=== PATIENT | male | born 1965 | race African-American/Black ===

== ENCOUNTER 2016-06-23 10:26 | Inpatient (IN) | payer OTHER ==
[2016-06-23 10:40] VITALS: BMI 19.1
--- NOTE | 2016-06-23 13:30 | HP ---
CIWA Score - CIWA Score Nausea/Vomitin-Int. Nausea w/Dry Heave Muscle Tremors: 4-Moderate,w/Arms Extend Anxiety: 4-Mod. Anxious/Guarded Agitation: 3 Paroxysmal Sweats: 1-Minimal Palms Moist Orientation: 0-Oriented Tacttile Disturbances: 3-Moderate Itch/Numb/Burn Auditory Disturbances: 0-None Visual Disturbances: 0-None Headache: 0-None Present CIWA-Ar Total Score: 19 Admission ROS BHS - HPI Chief Complaint: DETOX TX FOR ALCOHOL DEPENDENCE Allergies/Adverse Reactions: Allergies Allergy/AdvReac Type Severity Reaction Status Date / Time No Known Allergies Allergy Verified 06/23/16 11:44 History of Present Illness: 50 Y/O AA/MALE WITH A HX OF ALCOHOL AND COCAINE DEPENDENCE SEEKING DETOX TX Exam Limitations: No Limitations - Ebola screening Have you traveled outside of the country in the last 21 days: No Have you had contact with anyone from an Ebola affected area: No Have you been sick,other than usual withdrawal symptoms: No Do you have a fever: No - Review of Systems Constitutional: Chills, Loss of Appetite, Night Sweats, Changes in sleep, Unintentional Wgt. Loss EENT: reports: Blurred Vision (WEARS GLASSES), Nose Congestion Respiratory: reports: Shortness of Breath (HX ASTHMA), Wheezing Cardiac: reports: Lightheadedness GI: reports: Diarrhea, Nausea, Poor Appetite : reports: No Symptoms Reported Musculoskeletal: reports: Back Pain, Muscle Pain, Other (PERIPHERAL NEUROPATHY) Integumentary: reports: Rash (OUTBREAK OR HERPES ON UPPER LOWER BACK--ON VALTREX 500 MG BID), Other Neuro: reports: Headache, Tremors, Unsteady Gait, Dizziness Endocrine: reports: No Symptoms Reported Hematology: reports: Anemia (NO CURRENT MED) Psychiatric: reports: Orientated x3, Anxious, Depressed Other Systems: Reviewed and Negative Patient History - Patient Medical History Hx Anemia: Yes (NO MEDS) Hx Asthma: Yes (Pt is on MDI.) Hx Chronic Obstructive Pulmonary Disease (COPD): No Hx Cancer: No Hx Cardiac Disorders: No Hx Congestive Heart Failure: No Hx Hypertension: No Hx Hypercholesterolemia: No Hx Pacemaker: No HX Cerebrovascular Accident: No Hx Seizures: No Hx Dementia: No Hx Diabetes: No Hx Gastrointestinal Disorders: No Hx Liver Disease: No Hx Genitourinary Disorders: No Hx Sexually Transmitted Disorders: Yes (Pt has a hx of genital herpes) Hx Renal Disease (ESRD): No Hx Thyroid Disease: No Hx Human Immunodeficiency Virus (HIV): Yes (POSITIVE SINCE 1994-CHANGE TO GENVOYA(PT DID NOT BRING MED)) Hx Hepatitis C: No Hx Depression: Yes (ON MED) Hx Suicide Attempt: No (DENIES) Hx Bipolar Disorder: No Hx Schizophrenia: No - Patient Surgical History Past Surgical History: No Hx Neurologic Surgery: No Hx Cataract Extraction: No Hx Cardiac Surgery: No Hx Lung Surgery: No Hx Breast Surgery: No Hx Breast Biopsy: No Hx Abdominal Surgery: No Hx Appendectomy: No Hx Cholecystectomy: No Hx Genitourinary Surgery: No Hx Section: No Hx Orthopedic Surgery: No Anesthesia Reaction: No - PPD History Previous Implant?: Yes Documented Results: Negative w/proof Implanted On Prior [facility] Admission?: Yes Date: 05/27/15 Results: 0 MM - Reproductive History Patient : No - Smoking Cessation Smoking history: Current every day smoker Have you smoked in the past 12 months: Yes Aproximately how many cigarettes per day: 5 Cigars Per Day: 0 Hx Chewing Tobacco Use: No Initiated information on smoking cessation: Yes 'Breaking Loose' booklet given: 06/23/16 - Substance & Tx. History Hx Alcohol Use: Yes (CLINTON/VODKA) Hx Substance Use: Yes (CRACK) Substance Use Type: Alcohol, Cocaine, Marijuana Hx Substance Use Treatment: Yes ([facility]) - Substances Abused Alcohol Route: Oral Frequency: Daily Amount used: FIFTH OF CLINTON Age of first use: 20 Date of Last Use: 06/23/16 Crack Route: Smoking Frequency: Daily Amount used: $50 Age of first use: 37 Date of Last Use: 06/22/16 Marijuana/Hashish Route: Smoking Frequency: 1-3 times last 30 days Amount used: $10 Age of first use: 17 Date of Last Use: 06/22/16 Family Disease History - Family Disease History Family Disease History: Other: Father (cardiac ), Mother (TB ), Brother (alcohol,) Admission Physical Exam BHS - Vital Signs Vital Signs: Vital Signs - 24 hr 06/23/16 10:37 Temperature 97.7 F Pulse Rate 89 Respiratory 19 Rate Blood Pressure 130/67 - Physical General Appearance: Yes: Moderate Distress, Thin, Irritable, Anxious HEENTM: Yes: EOMI, Normocephalic, WALLY, Pharynx Normal Respiratory: Yes: Chest Non-Tender, Lungs Clear, Normal Breath Sounds Neck: Yes: Supple, Trachea in good position Breast: Yes: Breast Exam Deferred Cardiology: Yes: Regular Rhythm, Regular Rate, S1, S2 Abdominal: Yes: Normal Bowel Sounds, Non Tender, Flat, Soft Genitourinary: Yes: Other (N/C) Back: Yes: Within Normal Limits Musculoskeletal: Yes: full range of Motion, Gait Steady Extremities: Yes: Normal Range of Motion, Non-Tender, Other (SMALL BRUISE ON LEFT DAMON--NO SWELLING) Neurological: Yes: metal plater II-XII NML intact, Fully Oriented, Alert Integumentary: Yes: Dry, Warm Lymphatic: Yes: Within Normal Limits - Diagnostic (1) Alcohol dependence with uncomplicated withdrawal Current Visit: Yes Status: Acute (2) Cocaine dependence, uncomplicated Current Visit: Yes Status: Acute (3) Nicotine dependence Current Visit: Yes Status: Acute Qualifiers: Nicotine product type: cigarettes Substance use status: in withdrawal Qualified Code(s): F17.213 - Nicotine dependence, cigarettes, with withdrawal (4) Asthma Current Visit: Yes Status: Chronic Qualifiers: Asthma severity: mild intermittent Asthma complication type: uncomplicated Qualified Code(s): J45.20 - Mild intermittent asthma, uncomplicated (5) Human immunodeficiency virus infection Current Visit: Yes Status: Chronic (6) Weight decreased Current Visit: Yes Status: Chronic (7) Peripheral neuropathic pain Current Visit: Yes Status: Chronic (8) Cannabis dependence Current Visit: No Status: Chronic Comment: NEGATIVE TOXICOLOGY TODAY Cleared for Admission [facility] - Detox or Rehab [facility] Level of Care: Medically Managed Detox Regimen/Protocol: Librium [facility] Breath Alcohol Content Breath Alcohol Content: 0 Urine Drug Screen - Results Drug Screen Negative: No Urine Drug Screen Results: NUBIA-Cocaine
[2016-06-23] MEDS ORDERED: chlordiazePOXIDE HCL 25 MG CAPSULE PO PRN (13:42)
[2016-06-23] MEDS ORDERED: P-EPHED 60MG/TRIPROLIDI 2.5MG TABLET PO PRN (13:42)
[2016-06-23] MEDS ORDERED: MENTHOL/PHENOL 1 EACH UD MM PRN (13:42)
[2016-06-23] MEDS ORDERED: MAGNESIUM HYDROX 2400MG/30ML ORAL SUSPENSION 30 ML CUP PO PRN (13:42)
[2016-06-23] MEDS ORDERED: MAGNESIUM CITRATE 300 ML BOTTLE PO PRN (13:42)
[2016-06-23] MEDS ORDERED: guaiFENesin/D-METHORPHAN HB 10 ML UNIT-DOSE CUPS PO PRN (13:42)
[2016-06-23] MEDS ORDERED: hydrOXYzine PAMOATE 25 MG CAPSULE (FP) PO PRN (13:42)
[2016-06-23] MEDS ORDERED: ACETAMINOPHEN 325 MG TABLET (FP) PO PRN (13:42)
[2016-06-23] MEDS ORDERED: MAG HYDROX/AL HYDROX/SIMETH 30 ML UNIT-DOSE CUP PO PRN (13:42)
[2016-06-23] MEDS ORDERED: IBUPROFEN 400 MG TABLET (FP) PO PRN (13:42)
[2016-06-23] MEDS ORDERED: LOPERAMIDE HCL 2 MG CAPSULE PO PRN (13:42)
[2016-06-23] MEDS ORDERED: ALBUTEROL SO4 18 GM HFA INHALER IH PRN (13:45)
[2016-06-23] MEDS ORDERED: chlordiazePOXIDE HCL 25 MG CAPSULE PO ONE (13:50)
[2016-06-23] MEDS: NICOTINE 14 MG/24 HOURS TOPICAL PATCH TD SCH (15:01)
[2016-06-23] MEDS: NICOTINE POLACRILEX 2 MG GUM BUC PRN (15:02)
[2016-06-23] MEDS: chlordiazePOXIDE HCL 25 MG CAPSULE PO SCH ×2 (17:55→22:46)
[2016-06-23 21:11] LABS: URINE APPEARANCE CLEAR; URINE BILIRUBIN NEGATIVE (NEGATIVE); URINE BLOOD NEGATIVE (NEGATIVE); URINE COLOR YELLOW; URINE GLUCOSE (UA) NEGATIVE (NEGATIVE); URINE KETONE 1+ (NEGATIVE); URINE LEUK ESTERASE NEGATIVE (NEGATIVE); URINE NITRITE NEGATIVE (NEGATIVE); URINE PROTEIN NEGATIVE (NEGATIVE); URINE UROBILINOGEN NEGATIVE E.U./dl (0.2-1.0)
[2016-06-23] MEDS: valACYclovir HCL 500 MG TABLET (FP) PO SCH (22:46)
[2016-06-23] MEDS: THIAMINE HCL 100 MG TABLET (FP) PO SCH (22:46)
[2016-06-24] MEDS: chlordiazePOXIDE HCL 25 MG CAPSULE PO SCH ×4 (05:52→22:43)
--- NOTE | 2016-06-24 09:48 | PN ---
BHS CIWA - CIWA Score Nausea/Vomitin Muscle Tremors: 3 Anxiety: 3 Agitation: 3 Paroxysmal Sweats: 1-Minimal Palms Moist Orientation: 0-Oriented Tacttile Disturbances: 1-Very Mild Itch/Numbness Auditory Disturbances: 1-Very Mild Visual Disturbances: 1-Very Mild Sensitivity Headache: 2-Mild CIWA-Ar Total Score: 18 BHS Progress Note (SOAP) Subjective: ALERT,IRRITABLE,ANXIOUS,INTERRUPTED SLEEP,TREMOR Objective: 06/24/16 09:47 Vital Signs Temperature 97.7 F 06/24/16 06:30 Pulse Rate 75 06/24/16 06:30 Respiratory Rate 16 06/24/16 06:30 Blood Pressure 102/56 06/24/16 06:30 O2 Sat by Pulse Oximetry (%) EKG NSR Laboratory Last Values Urine Color Yellow 06/23/16 15:00 Urine Appearance Clear 06/23/16 15:00 Urine pH 5.0 (5.0-8.0) D 06/23/16 15:00 Urine Protein Negative (NEGATIVE) 06/23/16 15:00 Urine Glucose (UA) Negative (NEGATIVE) 06/23/16 15:00 Urine Ketones 1+ (NEGATIVE) H 06/23/16 15:00 Urine Blood Negative (NEGATIVE) 06/23/16 15:00 Urine Nitrite Negative (NEGATIVE) 06/23/16 15:00 Urine Bilirubin Negative (NEGATIVE) 06/23/16 15:00 Urine Urobilinogen Negative E.U./dl (0.2-1.0) 06/23/16 15:00 Ur Leukocyte Esterase Negative (NEGATIVE) 06/23/16 15:00 LABS PENDING Assessment: 06/24/16 09:48 WITHDRAWAL SYMPTOM Plan: CONTINUE DETOX
[2016-06-24 09:56] LABS: MCH 28.8 pg (25.7-33.7); MCHC 33.3 g/dl (32.0-35.9); MEAN CELL VOLUME 86.5 fl (80-96); MEAN PLT VOLUME 10.5 fl (7.5-11.1); PLATELET COUNT 114 K/MM3 (134-434); RDW 15.7 % (11.9-15.9); WHITE BLOOD COUNT 2.6 K/mm3 (4.0-10.0)
[2016-06-24] MEDS: PRENATAL VITAMINS W/ FOLIC ACID TABLET (FP) PO SCH (10:49)
[2016-06-24] MEDS: valACYclovir HCL 500 MG TABLET (FP) PO SCH ×2 (10:49→22:43)
[2016-06-24] MEDS: NICOTINE 14 MG/24 HOURS TOPICAL PATCH TD SCH (10:50)
[2016-06-24] MEDS: NICOTINE POLACRILEX 2 MG GUM BUC PRN ×3 (10:57→22:46)
--- NOTE | 2016-06-24 11:46 | EKG ---
Test Reason : Blood Pressure : / mmHG Vent. Rate : 073 BPM Atrial Rate : 073 BPM P-R Int : 206 ms QRS Dur : 086 ms QT Int : 406 ms P-R-T Axes : 074 081 072 degrees QTc Int : 447 ms NORMAL SINUS RHYTHM ST ELEVATION, CONSIDER EARLY REPOLARIZATION NO PREVIOUS ECGS AVAILABLE Confirmed by DALI DAMON MD ([id number]) on 06/24/2016 11:45:50 AM Referred By: Confirmed By:DALI DAMON MD
--- NOTE | 2016-06-24 12:35 | CONSULT ---
[facility] Psychiatric Consult - Data Date of interview: 06/24/16 Admission source: [facility] Identifying data: Another admission to [facility] for this 50 y/o AA male seeking detox trewatment on for alcohol,cannabis and cocaine dependence.Patient is single without children,domiciled (O setting), unemployed and supported on SSD benefits. Substance Abuse History: - Smoking Cessation. Smoking history: Current every day smoker. Have you smoked in the past 12 months: Yes. Aproximately how many cigarettes per day: 5. Cigars Per Day: 0. Hx Chewing Tobacco Use: No. Initiated information on smoking cessation: Yes. 'Breaking Loose' booklet given : 06/23/16. - Substance & Tx. History. Hx Alcohol Use: Yes (CLINTON/VODKA). Hx Substance Use: Yes (CRACK). Substance Use Type: Alcohol, Cocaine, Marijuana. Hx Substance Use Treatment: Yes ([facility]). - Substances Abused. Alcohol. Route: Oral. Frequency: Daily. Amount used: FIFTH OF CLINTON. Age of first use: 20. Date of Last Use: 06/23/16. Crack. Route: Smoking. Frequency: Daily. Amount used: $50. Age of first use: 37. Date of Last Use: 06/22/16. Marijuana/Hashish. Route: Smoking. Frequency: 1-3 times last 30 days. Amount used: $10. Age of first use: 17. Date of Last Use : 06/22/16. Confirmed by patient. Medical History: HIV infection since 1994 (on ART medications),anemia,bronchial asthma and a history of herpes genitalis. Psychiatric History: History of one psychiatric hospitalization at [facility] (2016).Diagnosed with MDD/Anxiety Disorder.Mr Deras [facility] in the [place].Patient is managed by Dr Chery under a regimen of remeron 45 mg/hs + effexor 37.5 mg/day.States that he last took his medications two days ago.Patient denies history of suicide attempts. Physical/Sexual Abuse/Trauma History: Patient denies. Additional Comment: Urine Drug Screen Results: NUBIA-Cocaine.Noted. Mental Status Exam - Mental Status Exam Alert and Oriented to: Time, Place, Person Cognitive Function: Good Patient Appearance: Well Groomed (wearing rings in all fingers) Mood: Hopeful, Euthymic Affect: Appropriate, Normal Range Patient Behavior: Fatigued, Appropriate, Cooperative (friendly) Speech Pattern: Clear Voice Loudness: Normal Thought Process: Goal Oriented Thought Disorder: Not Present Hallucinations: Denies Suicidal Ideation: Denies Homicidal Ideation: Denies Insight/Judgement: Poor Sleep: Poorly, Difficulty falling asleep Appetite: Good Muscle strength/Tone: Normal Gait/Station: Normal Psychiatric Findings - Problem List ([place] 1, 2,3) (1) Alcohol dependence with uncomplicated withdrawal Current Visit: Yes Status: Acute (2) Cocaine dependence, uncomplicated Current Visit: Yes Status: Acute (3) Nicotine dependence Current Visit: Yes Status: Acute Qualifiers: Nicotine product type: cigarettes Substance use status: in withdrawal Qualified Code(s): F17.213 - Nicotine dependence, cigarettes, with withdrawal (4) Substance induced mood disorder Current Visit: Yes Status: Acute (5) MDD (major depressive disorder) Current Visit: Yes Status: Acute Comment: By history. (6) Asthma Current Visit: Yes Status: Chronic Qualifiers: Asthma severity: mild intermittent Asthma complication type: uncomplicated Qualified Code(s): J45.20 - Mild intermittent asthma, uncomplicated (7) Human immunodeficiency virus infection Current Visit: Yes Status: Chronic (8) Peripheral neuropathic pain Current Visit: Yes Status: Chronic (9) Weight decreased Current Visit: Yes Status: Chronic (10) Insomnia Current Visit: Yes Status: Acute - Initial Treatment Plan Initial Treatment Plan: Psychoeducation.Detoxification in progress.Medications : effexor 37.5 mg po daily + remeron 30 mg po hs (reduced).Side effects/ benefits discussed with the patient.He is eager to resume his medications.Agrees with careplan.Observation.
[2016-06-24 13:48] LABS: ALBUMIN 4.1 g/dl (3.4-5.0); ALK PHOS 84 U/L (45-117); ANION GAP 8 (8-16); BILIRUBIN,TOTAL 0.4 mg/dL (0.2-1.0); CALCIUM 8.9 mg/dL (8.5-10.1); CO2 28 mmol/L (21-32); GLUCOSE,RANDOM 72 mg/dL (74-106); SGOT/AST 65 U/L (15-37); SGPT/ALT 52 U/L (12-78); TOT PROT 7.8 g/dl (6.4-8.2)
[2016-06-24] MEDS: VENLAFAXINE HCL 37.5 MG TABLET PO SCH (17:26)
[2016-06-24] MEDS: THIAMINE HCL 100 MG TABLET (FP) PO SCH (22:43)
[2016-06-24] MEDS: MIRTAZAPINE 30 MG TABLET (FP) PO SCH (22:43)
[2016-06-25] MEDS: chlordiazePOXIDE HCL 25 MG CAPSULE PO SCH ×2 (05:29→10:29)
[2016-06-25] MEDS: valACYclovir HCL 500 MG TABLET (FP) PO SCH ×2 (10:27→22:16)
[2016-06-25] MEDS: PRENATAL VITAMINS W/ FOLIC ACID TABLET (FP) PO SCH (10:27)
[2016-06-25] MEDS: NICOTINE 14 MG/24 HOURS TOPICAL PATCH TD SCH (10:28)
[2016-06-25] MEDS: VENLAFAXINE HCL 37.5 MG TABLET PO SCH (10:29)
[2016-06-25] MEDS: NICOTINE POLACRILEX 2 MG GUM BUC PRN (10:30)
--- NOTE | 2016-06-25 12:21 | PN ---
[facility] CIWA - CIWA Score Nausea/Vomitin Muscle Tremors: 2 Anxiety: 2 Agitation: 2 Paroxysmal Sweats: 2 Orientation: 0-Oriented Tacttile Disturbances: 2-Mild Itch/Numbness/Burn Auditory Disturbances: 1-Very Mild Visual Disturbances: 1-Very Mild Sensitivity Headache: 1-Very Mild CIWA-Ar Total Score: 15 S Progress Note (SOAP) Subjective: Interrupted sleep,anxiety, joint pain Objective: 06/25/16 12:19 Vital Signs - 8 hr 06/25/16 06/25/16 06:00 10:35 Temperature 97.3 F L 97.3 F L Pulse Rate 69 86 Respiratory 16 16 Rate Blood Pressure 95/64 100/68 Laboratory Last Values WBC 2.6 K/mm3 (4.0-10.0) L 06/24/16 06:00 RBC 4.27 M/mm3 (4.00-5.60) 06/24/16 06:00 Hgb 12.3 GM/dL (11.7-16.9) 06/24/16 06:00 Hct 37.0 % (35.4-49) 06/24/16 06:00 MCV 86.5 fl (80-96) 06/24/16 06:00 MCHC 33.3 g/dl (32.0-35.9) 06/24/16 06:00 RDW 15.7 % (11.9-15.9) 06/24/16 06:00 Plt Count 114 K/MM3 (134-434) L D 06/24/16 06:00 MPV 10.5 fl (7.5-11.1) D 06/24/16 06:00 Sodium 137 mmol/L (136-145) 06/24/16 06:00 Potassium 4.7 mmol/L (3.5-5.1) D 06/24/16 06:00 Chloride 101 mmol/L (98-107) 06/24/16 06:00 Carbon Dioxide 28 mmol/L (21-32) 06/24/16 06:00 Anion Gap 8 (8-16) 06/24/16 06:00 BUN 14 mg/dL (7-18) D 06/24/16 06:00 Creatinine 1.0 mg/dL (0.7-1.3) 06/24/16 06:00 Creat Clearance w eGFR > 60 (>60) 06/24/16 06:00 Random Glucose 72 mg/dL (74-106) L D 06/24/16 06:00 Calcium 8.9 mg/dL (8.5-10.1) 06/24/16 06:00 Total Bilirubin 0.4 mg/dL (0.2-1.0) D 06/24/16 06:00 AST 65 U/L (15-37) H D 06/24/16 06:00 ALT 52 U/L (12-78) D 06/24/16 06:00 Alkaline Phosphatase 84 U/L (45-117) 06/24/16 06:00 Total Protein 7.8 g/dl (6.4-8.2) 06/24/16 06:00 Albumin 4.1 g/dl (3.4-5.0) 06/24/16 06:00 Urine Color Yellow 06/23/16 15:00 Urine Appearance Clear 06/23/16 15:00 Urine pH 5.0 (5.0-8.0) D 06/23/16 15:00 Ur Specific [place] 1.015 (1.005-1.025) 06/23/16 15:00 Urine Protein Negative (NEGATIVE) 06/23/16 15:00 Urine Glucose (UA) Negative (NEGATIVE) 06/23/16 15:00 Urine Ketones 1+ (NEGATIVE) H 06/23/16 15:00 Urine Blood Negative (NEGATIVE) 06/23/16 15:00 Urine Nitrite Negative (NEGATIVE) 06/23/16 15:00 Urine Bilirubin Negative (NEGATIVE) 06/23/16 15:00 Urine Urobilinogen Negative E.U./dl (0.2-1.0) 06/23/16 15:00 Ur Leukocyte Esterase Negative (NEGATIVE) 06/23/16 15:00 RPR Titer Nonreactive (NONREACTIVE) 06/24/16 06:00 labs noted Assessment: 06/25/16 12:20 withdrawal sx Plan: continue sx
[2016-06-25] MEDS: chlordiazePOXIDE 5 MG CAPSULE PO SCH ×2 (17:28→22:16)
[2016-06-25] MEDS: MIRTAZAPINE 30 MG TABLET (FP) PO SCH (22:16)
[2016-06-25] MEDS: diphenhydrAMINE HCL 50 MG CAPSULE PO PRN (22:17)
[2016-06-25] MEDS: THIAMINE HCL 100 MG TABLET (FP) PO SCH (22:17)
[2016-06-26] MEDS: chlordiazePOXIDE 5 MG CAPSULE PO SCH ×2 (05:58→10:22)
[2016-06-26] MEDS: valACYclovir HCL 500 MG TABLET (FP) PO SCH ×2 (10:21→22:17)
[2016-06-26] MEDS: PRENATAL VITAMINS W/ FOLIC ACID TABLET (FP) PO SCH (10:21)
[2016-06-26] MEDS: VENLAFAXINE HCL 37.5 MG TABLET PO SCH (10:22)
[2016-06-26] MEDS: NICOTINE 14 MG/24 HOURS TOPICAL PATCH TD SCH (10:22)
--- NOTE | 2016-06-26 11:21 | PN ---
BHS Progress Note (SOAP) Subjective: Sweating,interrupted sleep,restless Objective: 06/26/16 11:19 Vital Signs - 8 hr 06/26/16 06/26/16 06/26/16 03:30 06:00 09:36 Temperature 97.9 F 97.7 F Pulse Rate 66 85 Respiratory 18 18 18 Rate Blood Pressure 108/67 112/69 Laboratory Tests 06/23/16 06/24/16 06/24/16 15:00 06:00 06:00 WBC 2.6 L RBC 4.27 Hgb 12.3 Hct 37.0 MCV 86.5 MCHC 33.3 RDW 15.7 Plt Count 114 L D MPV 10.5 D Sodium 137 Potassium 4.7 D Chloride 101 Carbon Dioxide 28 Anion Gap 8 BUN 14 D Creatinine 1.0 Creat Clearance w eGFR > 60 Random Glucose 72 L D Calcium 8.9 Total Bilirubin 0.4 D AST 65 H D ALT 52 D Alkaline Phosphatase 84 Total Protein 7.8 Albumin 4.1 Urine Color Yellow Urine Appearance Clear Urine pH 5.0 D Ur Specific [place] 1.015 Urine Protein Negative Urine Glucose (UA) Negative Urine Ketones 1+ H Urine Blood Negative Urine Nitrite Negative Urine Bilirubin Negative Urine Urobilinogen Negative Ur Leukocyte Esterase Negative RPR Titer 06/24/16 06:00 WBC RBC Hgb Hct MCV MCHC RDW Plt Count MPV Sodium Potassium Chloride Carbon Dioxide Anion Gap BUN Creatinine Creat Clearance w eGFR Random Glucose Calcium Total Bilirubin AST ALT Alkaline Phosphatase Total Protein Albumin Urine Color Urine Appearance Urine pH Ur Specific [place] Urine Protein Urine Glucose (UA) Urine Ketones Urine Blood Urine Nitrite Urine Bilirubin Urine Urobilinogen Ur Leukocyte Esterase RPR Titer Nonreactive labs noted Assessment: 06/26/16 11:20 withdrawal sx. Plan: Continue detox
[2016-06-26] MEDS: chlordiazePOXIDE HCL 10 MG CAPSULE PO SCH ×2 (17:30→22:17)
[2016-06-26] MEDS: diphenhydrAMINE HCL 50 MG CAPSULE PO PRN (22:17)
[2016-06-26] MEDS: MIRTAZAPINE 30 MG TABLET (FP) PO SCH (22:17)
[2016-06-26] MEDS: THIAMINE HCL 100 MG TABLET (FP) PO SCH (22:17)
[2016-06-27] MEDS: chlordiazePOXIDE HCL 10 MG CAPSULE PO SCH (05:03)
--- NOTE | 2016-06-27 09:08 | DS ---
[facility] Detox Discharge Summary Admission Date: 06/23/16 Discharge Date: 06/27/16 - History Present History: Alcohol Dependence, Cannabis Dependence, Cocaine Dependence - Physical Exam Results Vital Signs: Vital Signs Temperature 98.1 F 06/27/16 06:22 Pulse Rate 72 06/27/16 06:22 Respiratory Rate 16 06/27/16 06:22 Blood Pressure 94/56 06/27/16 06:22 O2 Sat by Pulse Oximetry (%) - Treatment Hospital Course: Detox Protocol Followed, Detoxed Safely, Responded well, Discharged Condition Good - Medication Discharge Medications: Ambulatory Orders Valacyclovir HCl [Valtrex -] 500 mg PO BID #30 tablet 05/29/15 Albuterol Sulfate Inhaler - [Ventolin HFA Inhaler -] 2 inh PO Q4H PRN #1 inhaler 02/23/16 Mirtazapine [Remeron -] 45 mg PO HS #90 tablet 02/23/16 Venlafaxine HCl ER [Effexor Xr -] 37.5 mg PO DAILY #30 cap.er.24h 02/23/16 Elviteg/Catarina/Emtric/Tenofo Ala [Genvoya Tablet] 1 each PO DAILY 06/23/16 Mirtazapine [Remeron [DO NOT STOCK]] 45 mg PO DAILY #30 tab 06/24/16 - Diagnosis (1) Alcohol dependence with uncomplicated withdrawal Current Visit: No Status: Chronic (2) Cannabis dependence Current Visit: Yes Status: Chronic (3) Cocaine dependence, uncomplicated Current Visit: Yes Status: Acute (4) Nicotine dependence Current Visit: Yes Status: Chronic Qualifiers: Nicotine product type: cigarettes Substance use status: in withdrawal Qualified Code(s): F17.213 - Nicotine dependence, cigarettes, with withdrawal (5) Asthma Current Visit: Yes Status: Chronic Qualifiers: Asthma severity: mild intermittent Asthma complication type: uncomplicated Qualified Code(s): J45.20 - Mild intermittent asthma, uncomplicated (6) Human immunodeficiency virus infection Current Visit: Yes Status: Chronic (7) Peripheral neuropathic pain Current Visit: Yes Status: Chronic (8) Thrush, oral Current Visit: Yes Status: Chronic - AMA Did Patient Leave Against Medical Advice: No
[2016-06-27] MEDS: PRENATAL VITAMINS W/ FOLIC ACID TABLET (FP) PO SCH (09:36)
[2016-06-27] MEDS: VENLAFAXINE HCL 37.5 MG TABLET PO SCH (09:37)
[2016-06-27] MEDS: valACYclovir HCL 500 MG TABLET (FP) PO SCH (09:37)
[2016-06-27] MEDS: NICOTINE 14 MG/24 HOURS TOPICAL PATCH TD SCH (09:37)
[2016-06-27 13:55] VITALS: BP 116/74; PULSE 92; TEMP 99
[2016-06-27] MEDS: NICOTINE POLACRILEX 2 MG GUM BUC PRN (14:49)
== END 2016-06-27 15:05 | disposition other institution (70) | DRG 897 ==
LOC: YASAS 10:26 → Y6N 13:25
PROVIDERS: ADMIT Internal Medicine Addiction Medicine; ATTEND Internal Medicine Addiction Medicine
PROC: HZ2ZZZZ Detoxification Services for Substance Abuse Treatment (ICD-10-PCS; principal; 2016-06-27)
DX: F10.230 Alcohol dependence with withdrawal, uncomplicated (principal); F14.20 Cocaine dependence, uncomplicated; Z68.1 Body mass index [BMI] 19.9 or less, adult; B37.0 Candidal stomatitis; F12.20 Cannabis dependence, uncomplicated; F17.213 Nicotine dependence, cigarettes, with withdrawal; J45.20 Mild intermittent asthma, uncomplicated; F32.9 Major depressive disorder, single episode, unspecified; G47.00 Insomnia, unspecified; R63.4 Abnormal weight loss; Z21 Asymptomatic human immunodeficiency virus [HIV] infection status
CPT/HCPCS: 36415; 80053; 81003; 85027; 86593; 93005; 93010

== ENCOUNTER 2016-06-27 15:21 | Inpatient (IN) | payer OTHER ==
[2016-06-27 15:52] VITALS: BMI 18.9
[2016-06-27] MEDS ORDERED: diphenhydrAMINE HCL 50 MG CAPSULE PO PRN (16:11)
[2016-06-27] MEDS ORDERED: guaiFENesin/D-METHORPHAN HB 10 ML UNIT-DOSE CUPS PO PRN (16:11)
[2016-06-27] MEDS ORDERED: MAGNESIUM CITRATE 300 ML BOTTLE PO PRN (16:11)
[2016-06-27] MEDS ORDERED: ACETAMINOPHEN 325 MG TABLET (FP) PO PRN (16:11)
[2016-06-27] MEDS ORDERED: LOPERAMIDE HCL 2 MG CAPSULE PO PRN (16:11)
[2016-06-27] MEDS ORDERED: IBUPROFEN 400 MG TABLET (FP) PO PRN (16:11)
[2016-06-27] MEDS ORDERED: MENTHOL/PHENOL 1 EACH UD MM PRN (16:11)
[2016-06-27] MEDS ORDERED: P-EPHED 60MG/TRIPROLIDI 2.5MG TABLET PO PRN (16:11)
[2016-06-27] MEDS ORDERED: ALBUTEROL SO4 6.7 GM HFA INHALER IH PRN (16:11)
[2016-06-27] MEDS ORDERED: MAG HYDROX/AL HYDROX/SIMETH 30 ML UNIT-DOSE CUP PO PRN (16:11)
[2016-06-27] MEDS ORDERED: MAGNESIUM HYDROX 2400MG/30ML ORAL SUSPENSION 30 ML CUP PO PRN (16:11)
--- NOTE | 2016-06-27 16:16 | HP ---
[facility] Rehab Assess/Revision - Admission History Admitted to Rehab from: [facility] Date of Admission to Rehab: 06/27/16 - Vital signs Vital Signs: Vital Signs Period Temp Pulse Resp BP Sys/Mclaughlin Pulse Ox Last 24 Hr 97 F 94 19 105/71 - Findings Detox History & Physical reviewed: Yes Concur with findings: Yes Comments/Additional Findings: transferred from detox to rehab admission as per protocol
[2016-06-27] MEDS: valACYclovir HCL 500 MG TABLET (FP) PO SCH (22:02)
[2016-06-27] MEDS: THIAMINE HCL 100 MG TABLET (FP) PO SCH (22:02)
[2016-06-27] MEDS: MIRTAZAPINE 15 MG TABLET (FP) PO SCH (22:03)
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
[2016-06-28] MEDS ORDERED: PT OWN MED DRAWER 7, Y5N ONE (08:31)
[2016-06-28] MEDS ORDERED: PNEUMOC 13-VAL CONJ-DIP CRM/PF 0.5 ML DISP.SYRIN IM ONE (10:00)
[2016-06-28] MEDS: valACYclovir HCL 500 MG TABLET (FP) PO SCH ×2 (10:21→21:24)
[2016-06-28] MEDS: VENLAFAXINE HCL 37.5 MG E.R. CAPSULE (FP) PO SCH (10:21)
[2016-06-28] MEDS: NICOTINE 14 MG/24 HOURS TOPICAL PATCH TD SCH (10:21)
[2016-06-28] MEDS: PRENATAL VITAMINS W/ FOLIC ACID TABLET (FP) PO SCH (10:21)
[2016-06-28] MEDS: NICOTINE POLACRILEX 2 MG GUM BUC PRN (10:23)
[2016-06-28] MEDS: THIAMINE HCL 100 MG TABLET (FP) PO SCH (21:23)
[2016-06-28] MEDS: MIRTAZAPINE 15 MG TABLET (FP) PO SCH (21:23)
[2016-06-29] MEDS: NICOTINE POLACRILEX 2 MG GUM BUC PRN ×4 (06:09→22:06)
[2016-06-29] MEDS ORDERED: PT OWN MED DRAWER 7, Y5N ONE ×2 (08:43→15:29)
[2016-06-29] MEDS: NICOTINE 14 MG/24 HOURS TOPICAL PATCH TD SCH (09:35)
[2016-06-29] MEDS: valACYclovir HCL 500 MG TABLET (FP) PO SCH ×2 (09:35→22:04)
[2016-06-29] MEDS: PRENATAL VITAMINS W/ FOLIC ACID TABLET (FP) PO SCH (09:35)
[2016-06-29] MEDS: VENLAFAXINE HCL 37.5 MG E.R. CAPSULE (FP) PO SCH (09:35)
[2016-06-29] MEDS: MIRTAZAPINE 15 MG TABLET (FP) PO SCH (22:04)
[2016-06-29] MEDS: THIAMINE HCL 100 MG TABLET (FP) PO SCH (22:05)
[2016-06-30] MEDS ORDERED: PT OWN MED DRAWER 7, Y5N ONE (08:45)
[2016-06-30] MEDS: PRENATAL VITAMINS W/ FOLIC ACID TABLET (FP) PO SCH (09:39)
[2016-06-30] MEDS: NICOTINE 14 MG/24 HOURS TOPICAL PATCH TD SCH (09:39)
[2016-06-30] MEDS: valACYclovir HCL 500 MG TABLET (FP) PO SCH ×2 (09:40→21:27)
[2016-06-30] MEDS: VENLAFAXINE HCL 37.5 MG E.R. CAPSULE (FP) PO SCH (09:40)
[2016-06-30] MEDS: NICOTINE POLACRILEX 2 MG GUM BUC PRN ×3 (09:41→21:28)
[2016-06-30] MEDS: THIAMINE HCL 100 MG TABLET (FP) PO SCH (21:27)
[2016-06-30] MEDS: MIRTAZAPINE 15 MG TABLET (FP) PO SCH (21:27)
[2016-07-01] MEDS ORDERED: PT OWN MED DRAWER 7, Y5N ONE (08:48)
[2016-07-01] MEDS: PRENATAL VITAMINS W/ FOLIC ACID TABLET (FP) PO SCH (10:08)
[2016-07-01] MEDS: valACYclovir HCL 500 MG TABLET (FP) PO SCH ×2 (10:08→21:37)
[2016-07-01] MEDS: VENLAFAXINE HCL 37.5 MG E.R. CAPSULE (FP) PO SCH (10:08)
[2016-07-01] MEDS: NICOTINE 14 MG/24 HOURS TOPICAL PATCH TD SCH (10:09)
[2016-07-01] MEDS: THIAMINE HCL 100 MG TABLET (FP) PO SCH (21:36)
[2016-07-01] MEDS: MIRTAZAPINE 15 MG TABLET (FP) PO SCH (21:36)
[2016-07-02] MEDS ORDERED: PT OWN MED DRAWER 7, Y5N ONE (08:38)
[2016-07-02] MEDS: NICOTINE 14 MG/24 HOURS TOPICAL PATCH TD SCH (09:44)
[2016-07-02] MEDS: VENLAFAXINE HCL 37.5 MG E.R. CAPSULE (FP) PO SCH (09:44)
[2016-07-02] MEDS: valACYclovir HCL 500 MG TABLET (FP) PO SCH ×2 (09:44→21:42)
[2016-07-02] MEDS: PRENATAL VITAMINS W/ FOLIC ACID TABLET (FP) PO SCH (09:44)
[2016-07-02] MEDS: NICOTINE POLACRILEX 2 MG GUM BUC PRN ×2 (09:46→21:43)
[2016-07-02] MEDS: THIAMINE HCL 100 MG TABLET (FP) PO SCH (21:41)
[2016-07-02] MEDS: MIRTAZAPINE 15 MG TABLET (FP) PO SCH (21:41)
[2016-07-03] MEDS: NICOTINE POLACRILEX 2 MG GUM BUC PRN ×3 (07:25→21:47)
[2016-07-03] MEDS ORDERED: PT OWN MED DRAWER 7, Y5N ONE (08:55)
[2016-07-03] MEDS: valACYclovir HCL 500 MG TABLET (FP) PO SCH ×2 (09:45→21:46)
[2016-07-03] MEDS: PRENATAL VITAMINS W/ FOLIC ACID TABLET (FP) PO SCH (09:45)
[2016-07-03] MEDS: NICOTINE 14 MG/24 HOURS TOPICAL PATCH TD SCH (09:46)
[2016-07-03] MEDS: VENLAFAXINE HCL 37.5 MG E.R. CAPSULE (FP) PO SCH (09:46)
[2016-07-03] MEDS: THIAMINE HCL 100 MG TABLET (FP) PO SCH (21:46)
[2016-07-03] MEDS: MIRTAZAPINE 15 MG TABLET (FP) PO SCH (21:46)
[2016-07-04] MEDS ORDERED: PT OWN MED DRAWER 7, Y5N ONE (08:59)
[2016-07-04] MEDS: PRENATAL VITAMINS W/ FOLIC ACID TABLET (FP) PO SCH (09:44)
[2016-07-04] MEDS: valACYclovir HCL 500 MG TABLET (FP) PO SCH ×2 (09:44→21:44)
[2016-07-04] MEDS: NICOTINE 14 MG/24 HOURS TOPICAL PATCH TD SCH (09:44)
[2016-07-04] MEDS: VENLAFAXINE HCL 37.5 MG E.R. CAPSULE (FP) PO SCH (09:45)
[2016-07-04] MEDS: NICOTINE POLACRILEX 2 MG GUM BUC PRN ×3 (09:45→21:45)
[2016-07-04] MEDS: THIAMINE HCL 100 MG TABLET (FP) PO SCH (21:44)
[2016-07-04] MEDS: MIRTAZAPINE 15 MG TABLET (FP) PO SCH (21:44)
[2016-07-05] MEDS ORDERED: PT OWN MED DRAWER 7, Y5N ONE (08:50)
[2016-07-05] MEDS: NICOTINE 14 MG/24 HOURS TOPICAL PATCH TD SCH (09:51)
[2016-07-05] MEDS: PRENATAL VITAMINS W/ FOLIC ACID TABLET (FP) PO SCH (09:51)
[2016-07-05] MEDS: VENLAFAXINE HCL 37.5 MG E.R. CAPSULE (FP) PO SCH (09:51)
[2016-07-05] MEDS: NICOTINE POLACRILEX 2 MG GUM BUC PRN ×3 (09:52→21:48)
[2016-07-05] MEDS: valACYclovir HCL 500 MG TABLET (FP) PO SCH ×2 (14:51→21:48)
[2016-07-05] MEDS: THIAMINE HCL 100 MG TABLET (FP) PO SCH (21:47)
[2016-07-05] MEDS: MIRTAZAPINE 15 MG TABLET (FP) PO SCH (21:48)
[2016-07-06] MEDS: NICOTINE POLACRILEX 2 MG GUM BUC PRN ×4 (08:00→21:47)
[2016-07-06] MEDS ORDERED: PT OWN MED DRAWER 7, Y5N ONE (08:50)
[2016-07-06] MEDS: NICOTINE 14 MG/24 HOURS TOPICAL PATCH TD SCH (10:00)
[2016-07-06] MEDS: PRENATAL VITAMINS W/ FOLIC ACID TABLET (FP) PO SCH (10:00)
[2016-07-06] MEDS: VENLAFAXINE HCL 37.5 MG E.R. CAPSULE (FP) PO SCH (10:00)
[2016-07-06] MEDS: valACYclovir HCL 500 MG TABLET (FP) PO SCH ×2 (10:00→21:46)
[2016-07-06] MEDS: THIAMINE HCL 100 MG TABLET (FP) PO SCH (21:46)
[2016-07-06] MEDS: MIRTAZAPINE 15 MG TABLET (FP) PO SCH (21:46)
[2016-07-07] MEDS ORDERED: PT OWN MED DRAWER 7, Y5N ONE (08:34)
[2016-07-07] MEDS: VENLAFAXINE HCL 37.5 MG E.R. CAPSULE (FP) PO SCH (09:48)
[2016-07-07] MEDS: valACYclovir HCL 500 MG TABLET (FP) PO SCH ×2 (09:48→21:17)
[2016-07-07] MEDS: NICOTINE 14 MG/24 HOURS TOPICAL PATCH TD SCH (09:48)
[2016-07-07] MEDS: PRENATAL VITAMINS W/ FOLIC ACID TABLET (FP) PO SCH (09:48)
[2016-07-07] MEDS: NICOTINE POLACRILEX 2 MG GUM BUC PRN ×3 (09:49→20:14)
[2016-07-07] MEDS: MIRTAZAPINE 15 MG TABLET (FP) PO SCH (21:16)
[2016-07-07] MEDS: THIAMINE HCL 100 MG TABLET (FP) PO SCH (21:16)
[2016-07-08] MEDS: NICOTINE POLACRILEX 2 MG GUM BUC PRN ×4 (07:27→21:35)
[2016-07-08] MEDS ORDERED: PT OWN MED DRAWER 7, Y5N ONE (08:48)
[2016-07-08] MEDS: NICOTINE 14 MG/24 HOURS TOPICAL PATCH TD SCH (09:59)
[2016-07-08] MEDS: valACYclovir HCL 500 MG TABLET (FP) PO SCH ×2 (09:59→21:34)
[2016-07-08] MEDS: PRENATAL VITAMINS W/ FOLIC ACID TABLET (FP) PO SCH (09:59)
[2016-07-08] MEDS: VENLAFAXINE HCL 37.5 MG E.R. CAPSULE (FP) PO SCH (09:59)
[2016-07-08] MEDS: MIRTAZAPINE 15 MG TABLET (FP) PO SCH (21:34)
[2016-07-08] MEDS: THIAMINE HCL 100 MG TABLET (FP) PO SCH (21:34)
[2016-07-09] MEDS ORDERED: PT OWN MED DRAWER 7, Y5N ONE (08:43)
[2016-07-09] MEDS: VENLAFAXINE HCL 37.5 MG E.R. CAPSULE (FP) PO SCH (09:34)
[2016-07-09] MEDS: valACYclovir HCL 500 MG TABLET (FP) PO SCH ×2 (09:34→21:27)
[2016-07-09] MEDS: PRENATAL VITAMINS W/ FOLIC ACID TABLET (FP) PO SCH (09:34)
[2016-07-09] MEDS: NICOTINE 14 MG/24 HOURS TOPICAL PATCH TD SCH (09:35)
[2016-07-09] MEDS: NICOTINE POLACRILEX 2 MG GUM BUC PRN ×3 (09:35→21:27)
[2016-07-09] MEDS: MIRTAZAPINE 15 MG TABLET (FP) PO SCH (21:26)
[2016-07-09] MEDS: THIAMINE HCL 100 MG TABLET (FP) PO SCH (21:26)
[2016-07-10] MEDS: NICOTINE POLACRILEX 2 MG GUM BUC PRN ×3 (06:53→21:53)
[2016-07-10] MEDS ORDERED: PT OWN MED DRAWER 7, Y5N ONE (08:34)
[2016-07-10] MEDS: PRENATAL VITAMINS W/ FOLIC ACID TABLET (FP) PO SCH (09:40)
[2016-07-10] MEDS: VENLAFAXINE HCL 37.5 MG E.R. CAPSULE (FP) PO SCH (09:40)
[2016-07-10] MEDS: valACYclovir HCL 500 MG TABLET (FP) PO SCH ×2 (09:40→21:52)
[2016-07-10] MEDS: NICOTINE 14 MG/24 HOURS TOPICAL PATCH TD SCH (09:40)
[2016-07-10] MEDS: MIRTAZAPINE 15 MG TABLET (FP) PO SCH (21:52)
[2016-07-10] MEDS: THIAMINE HCL 100 MG TABLET (FP) PO SCH (21:52)
[2016-07-11 06:48] VITALS: BP 111/65; PULSE 77; TEMP 98.5
--- NOTE | 2016-07-11 07:28 | PN ---
Psychiatric Progress Note Vital Signs: Vital Signs Period Temp Pulse Resp BP Sys/Mclaughlin Pulse Ox Last 24 Hr 98.5 F 77 18-18 111/65 Date of Session: 07/11/16 Chief Complaint:: Discharge Note HPI: Patient addressing Alcohol, Cocaine and Cannabis Dependence comorbid with Nicotine Dependence And Major Depressive Disorder ROS: Asthma, HIV, peripheral neuropathy were medically managed Current Medications: Active Medications Generic Name Dose Route Start Last Admin Trade Name Freq PRN Reason Stop Dose Admin Acetaminophen 650 mg 06/27/16 16:11 Tylenol - PO Q4H PRN FEVER OR PAIN Al Hydroxide/Mg Hydroxide 30 ml 06/27/16 16:11 Mylanta Oral Suspension - PO Q6H PRN DYSPEPSIA Albuterol Sulfate 2 puff 06/27/16 16:11 Ventolin Hfa Inhaler - IH Q4H PRN ASTHMA Diphenhydramine HCl 50 mg 06/27/16 16:11 Benadryl - PO HSMR1 PRN FOR ITCHING Eucalyptus/Menthol/Phenol/Sorbitol 1 each 06/27/16 16:11 Cepastat Lozenge - MM Q4H PRN SORE THROAT Guaifenesin 10 ml 06/27/16 16:11 Robitussin Dm - PO Q6H PRN COUGH Ibuprofen 400 mg 06/27/16 16:11 Motrin - PO Q6H PRN PAIN Loperamide HCl 4 mg 06/27/16 16:11 Imodium - PO Q6H PRN DIARRHEA Magnesium Hydroxide 30 ml 06/27/16 16:11 Milk Of Magnesia - PO DAILY PRN CONSTIPATION Mirtazapine 45 mg 06/27/16 22:00 07/10/16 21:52 Remeron - PO 45 mg HS ESTEBAN Administration Nicotine 14 mg 06/28/16 10:00 07/10/16 09:40 Nicoderm Patch - TD 14 mg DAILY ESTEBAN Administration Nicotine Polacrilex 2 mg 06/27/16 16:11 07/10/16 21:53 Nicorette Gum - BUC 2 mg Q2H PRN Administration NICOTINE REPLACEMENT RX Multivit/Folic Acid/Iron 1 tab 06/28/16 10:00 07/10/16 09:40 Vitamins (Sjr) - PO 1 tab DAILY ESTEBAN Administration Pseudoephedrine/Triprolidine 1 combo 06/27/16 16:11 Actifed - PO TID PRN NASAL CONGESTION Thiamine HCl 100 mg 06/27/16 22:00 07/10/16 21:52 Vitamin B1 - PO 100 mg HS ESTEBAN Administration Valacyclovir HCl 500 mg 07/05/16 14:20 07/10/16 21:52 Valtrex - PO 500 mg BID ESTEBAN Administration Venlafaxine HCl 37.5 mg 06/28/16 10:00 07/10/16 09:40 Effexor Xr - PO 37.5 mg DAILY ESTEBAN Administration Current Side Effect: No Lab tests ordered: Yes Lab tests reviewed: Yes Provider note:: Patient has completed this program today. He has met his treatment goals and will continue to address his issues in outpatient treatment at [facility] at [address] [place] [address]. Told underwriter solicitation director that from his participation in this program, he has learned the importance of establishing a sober support network in order to maintain sobriety. He responded well to Effexor Xr 37,5 mg po daily and Remeron 45 mg po Hs. Scripts for 30 days supply of these medications are electronically transmitted to [facility] at [address] [place] [address]. He is stable for discharge today Total face to face time:: 35 Psychiatric Treatment Plan - Problem List (1) Alcohol dependence with uncomplicated withdrawal Current Visit: No (2) Cocaine dependence, uncomplicated Current Visit: No (3) Cannabis dependence Current Visit: No Comment: NEGATIVE TOXICOLOGY TODAY (4) Nicotine dependence Current Visit: No Qualifiers: Nicotine product type: cigarettes Substance use status: in withdrawal Qualified Code(s): F17.213 - Nicotine dependence, cigarettes, with withdrawal (5) MDD (major depressive disorder) Current Visit: No Comment: By history. (6) Asthma Current Visit: No Qualifiers: Asthma severity: mild intermittent Asthma complication type: uncomplicated Qualified Code(s): J45.20 - Mild intermittent asthma, uncomplicated (7) Human immunodeficiency virus infection Current Visit: No (8) Peripheral neuropathic pain Current Visit: No Initial treatment plan: Patient is discharged today and referred to
[2016-07-11] MEDS ORDERED: PT OWN MED DRAWER 7, Y5N ONE (08:40)
[2016-07-11] MEDS: VENLAFAXINE HCL 37.5 MG E.R. CAPSULE (FP) PO SCH (09:37)
[2016-07-11] MEDS: valACYclovir HCL 500 MG TABLET (FP) PO SCH (09:37)
[2016-07-11] MEDS: NICOTINE 14 MG/24 HOURS TOPICAL PATCH TD SCH (09:37)
[2016-07-11] MEDS: PRENATAL VITAMINS W/ FOLIC ACID TABLET (FP) PO SCH (09:37)
[2016-07-11] MEDS: NICOTINE POLACRILEX 2 MG GUM BUC PRN (09:38)
== END 2016-07-11 09:50 | disposition home or self-care (01) | DRG 895 ==
LOC: YASAS 15:21 → Y3W 15:23
PROVIDERS: ADMIT Psychiatry & Neurology Psychiatry; ATTEND Psychiatry & Neurology Psychiatry
PROC: HZ42ZZZ Group Counseling for Substance Abuse Treatment, Cognitive-Behavioral (ICD-10-PCS; principal; 2016-06-27)
DX: F10.20 Alcohol dependence, uncomplicated (principal); F14.20 Cocaine dependence, uncomplicated; F33.9 Major depressive disorder, recurrent, unspecified; F12.20 Cannabis dependence, uncomplicated; F17.213 Nicotine dependence, cigarettes, with withdrawal; J45.20 Mild intermittent asthma, uncomplicated; Z21 Asymptomatic human immunodeficiency virus [HIV] infection status; G62.9 Polyneuropathy, unspecified

== ENCOUNTER 2017-02-03 10:13 | Inpatient (IN) | payer OTHER ==
[2017-02-03 11:13] VITALS: BMI 19.5
--- NOTE | 2017-02-03 13:32 | HP ---
CIWA Score - CIWA Score Nausea/Vomitin Muscle Tremors: 4-Moderate,w/Arms Extend Anxiety: 4-Mod. Anxious/Guarded Agitation: 2 Paroxysmal Sweats: 2 Orientation: 0-Oriented Tacttile Disturbances: 2-Mild Itch/Numbness/Burn Auditory Disturbances: 0-None Visual Disturbances: 2-Mild Sensitivity Headache: 0-None Present CIWA-Ar Total Score: 19 Admission ROS BHS - HPI Chief Complaint: "I need to get clean." Patient is here to Detox from Alcohol. Allergies/Adverse Reactions: Allergies Allergy/AdvReac Type Severity Reaction Status Date / Time No Known Allergies Allergy Verified 02/03/17 11:19 History of Present Illness: Patient is a 51 YO male here to Detox from Alcohol. Patient has had several previous Detox and Rehab admissions at [facility] in the past (Last:Detox / Rehab: 2016). Exam Limitations: No Limitations - Ebola screening Have you traveled outside of the country in the last 21 days: No (N) Have you had contact with anyone from an Ebola affected area: No Have you been sick,other than usual withdrawal symptoms: No Do you have a fever: No - Review of Systems Constitutional: Diaphoresis, Loss of Appetite, Malaise, Night Sweats, Changes in sleep, Unintentional Wgt. Loss EENT: reports: No Symptoms Reported Respiratory: reports: SOB with Exertion, Productive cough Cardiac: reports: No Symptoms Reported GI: reports: Nausea : reports: No Symptoms Reported Musculoskeletal: reports: No Symptoms Reported Integumentary: reports: No Symptoms Reported Neuro: reports: Numbness (In Bilateral Feet.), Tingling (In Bilateral Feet.), Tremors Endocrine: reports: No Symptoms Reported Hematology: reports: No Symptoms Reported Psychiatric: reports: Judgement Intact, Mood/Affect Appropiate, Orientated x3, Anxious, Depressed (On meds.) Other Systems: Reviewed and Negative Patient History - Patient Medical History Hx Anemia: No Hx Asthma: Yes (Uses Albuterol Inhaler.) Hx Chronic Obstructive Pulmonary Disease (COPD): No Hx Cancer: No Hx Cardiac Disorders: No Hx Congestive Heart Failure: No Hx Hypertension: No Hx Hypercholesterolemia: No Hx Pacemaker: No HX Cerebrovascular Accident: No Hx Seizures: No Hx Dementia: No Hx Diabetes: No Hx Gastrointestinal Disorders: No Hx Liver Disease: No Hx Genitourinary Disorders: No Hx Sexually Transmitted Disorders: Yes (HIV) Hx Renal Disease (ESRD): No Hx Thyroid Disease: No Hx Human Immunodeficiency Virus (HIV): Yes (POSITIVE SINCE 1997-CHANGE TO GENVOYA(PT DID NOT BRING MED)) Hx Hepatitis C: No (Last Tested: 01/2017: NEGATIVE.) Hx Depression: Yes (On meds.) Hx Suicide Attempt: No (PATIENT DENIES CURRENT SI /HI.) Hx Bipolar Disorder: No Hx Schizophrenia: No Other Medical History: DENIES. - Patient Surgical History Past Surgical History: No Hx Neurologic Surgery: No Hx Cataract Extraction: No Hx Cardiac Surgery: No Hx Lung Surgery: No Hx Breast Surgery: No Hx Breast Biopsy: No Hx Abdominal Surgery: No Hx Appendectomy: No Hx Cholecystectomy: No Hx Genitourinary Surgery: No Hx Section: No Hx Orthopedic Surgery: No Anesthesia Reaction: No - PPD History Previous Implant?: Yes Documented Results: Positive w/proof Date: 06/23/16 Results: 0 mm PPD to be Administered?: No - Reproductive History Patient is a Female of Child Bearing Age (11 -55 yrs old): No (PATIENT IS MALE.) - Smoking Cessation Smoking history: Current every day smoker Have you smoked in the past 12 months: Yes Aproximately how many cigarettes per day: 5 Cigars Per Day: 0 Hx Chewing Tobacco Use: No Initiated information on smoking cessation: Yes 'Breaking Loose' booklet given: 02/03/17 (GIVEN ON UNIT.) - Substance & Tx. History Hx Alcohol Use: Yes Hx Substance Use: Yes Substance Use Type: Alcohol, Cocaine Hx Substance Use Treatment: Yes (Several previous Detox/Rehab admissions at [facility] ;Last: 06/2016 (Detox/Rehab)) - Substances Abused Cocaine Route: Smoking Frequency: Daily Amount used: 50 dollars Age of first use: 39 Date of Last Use: 02/03/17 Alcohol- Jossy/Beer/ Vodka/ Route: Oral Frequency: Daily Amount used: 1 Fifth Jossy, 2 40 oz. Beers. Age of first use: 17 Date of Last Use: 02/03/17 Marijuana Route: Smoking Frequency: Daily Amount used: 10 dollars Age of first use: 17 Date of Last Use: 02/03/17 Family Disease History - Family Disease History Family Disease History: CA: Sister (Ovarian, Ca; AIDS, ), Other: Father (CVA, ; Used Alcohol.), Mother (TB, ; Used Alcohol.), Brother ( Cirrhosis of Liver, Decxeased; OD, .) Admission Physical Exam [facility] - Vital Signs Vital Signs: Vital Signs - 24 hr 02/03/17 11:09 Temperature 96.0 F L Pulse Rate 80 Respiratory 18 Rate Blood Pressure 124/93 - Physical General Appearance: Yes: No Apparent Distress, Nourished, Appropriately Dressed , Tremorous HEENTM: Yes: Hearing grossly Normal, Normocephalic, Normal Voice, WALLY, Pharynx Normal Respiratory: Yes: Chest Non-Tender, Lungs Clear, No Respiratory Distress, No Accessory Muscle Use Neck: Yes: No masses,lesions,Nodules, Supple, Trachea in good position Breast: Yes: Breast Exam Deferred Cardiology: Yes: Regular Rhythm, Regular Rate, S1, S2 Abdominal: Yes: Normal Bowel Sounds, Non Tender, Flat, Soft Genitourinary: Yes: Within Normal Limits Back: Yes: Normal Inspection Musculoskeletal: Yes: full range of Motion, Gait Steady Extremities: Yes: Normal Range of Motion, Non-Tender, Tremors Neurological: Yes: Fully Oriented, Alert, Normal Mood/Affect, Normal Response, Other (Numbness, Tinglin in Bilateral Feet; History of Neuropathy in bilateral feet.) Integumentary: Yes: Normal Color, Dry, Warm Lymphatic: Yes: Within Normal Limits - Diagnostic (1) Cannabis dependence, uncomplicated Current Visit: Yes Status: Acute (2) Cocaine dependence, uncomplicated Current Visit: Yes Status: Acute (3) Alcohol dependence with uncomplicated withdrawal Current Visit: Yes Status: Acute (4) Asthma Current Visit: Yes Status: Chronic Qualifiers: Asthma severity: mild Asthma persistence: intermittent Asthma complication type: uncomplicated Qualified Code(s): J45.20 - Mild intermittent asthma, uncomplicated (5) Human immunodeficiency virus infection Current Visit: Yes Status: Chronic (6) Nicotine dependence Current Visit: Yes Status: Chronic Qualifiers: Nicotine product type: cigarettes Substance use status: uncomplicated Qualified Code(s): F17.210 - Nicotine dependence, cigarettes, uncomplicated (7) Peripheral neuropathic pain Current Visit: Yes Status: Chronic Cleared for Admission [facility] - Detox or Rehab [facility] Level of Care: Medically Managed Detox Regimen/Protocol: Librium [facility] Breath Alcohol Content Breath Alcohol Content: 0.040 Urine Drug Screen - Results Drug Screen Negative: No Urine Drug Screen Results: THC-Marijuana, NUBIA-Cocaine
[2017-02-03] MEDS ORDERED: MENTHOL/PHENOL 1 EACH UD MM PRN (13:54)
[2017-02-03] MEDS ORDERED: ACETAMINOPHEN 325 MG TABLET (FP) PO PRN (13:54)
[2017-02-03] MEDS ORDERED: MAG HYDROX/AL HYDROX/SIMETH 30 ML UNIT-DOSE CUP PO PRN (13:54)
[2017-02-03] MEDS ORDERED: LOPERAMIDE HCL 2 MG CAPSULE PO PRN (13:54)
[2017-02-03] MEDS ORDERED: chlordiazePOXIDE HCL 25 MG CAPSULE PO PRN (13:54)
[2017-02-03] MEDS ORDERED: MAGNESIUM CITRATE 300 ML BOTTLE PO PRN (13:54)
[2017-02-03] MEDS ORDERED: P-EPHED 60MG/TRIPROLIDI 2.5MG TABLET PO PRN (13:54)
[2017-02-03] MEDS ORDERED: guaiFENesin/D-METHORPHAN HB 10 ML UNIT-DOSE CUPS PO PRN (13:54)
[2017-02-03] MEDS ORDERED: IBUPROFEN 400 MG TABLET (FP) PO PRN (13:54)
[2017-02-03] MEDS ORDERED: ALBUTEROL SO4 18 GM HFA INHALER IH PRN (13:59)
[2017-02-03] MEDS ORDERED: chlordiazePOXIDE HCL 25 MG CAPSULE PO ONE (14:17)
[2017-02-03] MEDS ORDERED: [UNRECOGNIZED DRUG - OTHER] PO SCH (14:30)
[2017-02-03] MEDS: NICOTINE 14 MG/24 HOURS TOPICAL PATCH TD SCH (15:29)
[2017-02-03] MEDS: SULFAMETHOXAZOLE/TRIMETHOPRIM 800MG/160MG D.S. TABLET PO SCH (15:29)
[2017-02-03] MEDS: NICOTINE POLACRILEX 2 MG GUM BUC PRN ×2 (15:30→21:22)
--- NOTE | 2017-02-03 16:20 | CONSULT ---
[facility] Psychiatric Consult - Data Date of interview: 02/03/17 Admission source: [facility] Identifying data: One of multiple admissions to [facility] for this 51 y/o AA male seeking detox treatment on for alcohol,cannabis and cocaine dependence.Patient is single without children,domiciled (O setting), unemployed and supported on SSD benefits. Substance Abuse History: Confirmed by patient in this interview.See current [facility] report for details : Smoking history: Current every day smoker. Have you smoked in the past 12 months: Yes. Aproximately how many cigarettes per day: 5. Cigars Per Day: 0. Hx Chewing Tobacco Use: No. Initiated information on smoking cessation: Yes. 'Breaking Loose' booklet given: 02/03/17 (GIVEN ON UNIT.). - Substance & Tx. History. Hx Alcohol Use: Yes. Hx Substance Use: Yes. Substance Use Type: Alcohol, Cocaine. Hx Substance Use Treatment: Yes ( Several previous Detox/Rehab admissions at [facility];Last: 06/2016 (Detox/Rehab)). - Substances Abused. Cocaine. Route: Smoking. Frequency: Daily. Amount used: 50 dollars. Age of first use: 39. Date of Last Use: 02/03/17. Alcohol- Jossy/Beer/ Vodka/. Route: Oral. Frequency: Daily. Amount used: 1 Fifth Jossy, 2 40 oz. Beers. Age of first use: 17. Date of Last Use: . Marijuana. Route: Smoking. Frequency: Daily. Amount used: 10 dollars. Age of first use: 17. Date of Last Use: 02/03/17 Medical History: HIV infection since 1994 (on ART medications),anemia,bronchial asthma and a history of herpes genitalis. Psychiatric History: [facility] of [facility] since [facility].Diagnosed with MDD/ Anxiety Disorder.Mr Deras reports that he is no longer under the care of Dr Greer Chery ([facility] on [facility]).He manages to get refills despite chronic non-compliance with clinic appointments (unlikely since, according to survey of pharmacy claims,his most recent refills were from June 2016 after his discharge from [address]).Patient declares his intent to resume care with remeron 45 mg/hs + effexor 37.5 mg/day.No recall of date of most recent intake.Patient denies history of suicide attempts. Physical/Sexual Abuse/Trauma History: No reported history of abuse. Additional Comment: Urine Drug Screen Results: THC-Marijuana, NUBIA-Cocaine.Noted. Mental Status Exam - Mental Status Exam Alert and Oriented to: Time, Place, Person Cognitive Function: Good Patient Appearance: Unkempt, Disheveled Mood: Nervous, Withdrawn Affect: Mood Congruent Patient Behavior: Fatigued, Appropriate, Cooperative Speech Pattern: Clear, Appropriate Voice Loudness: Normal Thought Process: Intact, Goal Oriented Thought Disorder: Not Present Hallucinations: Denies Suicidal Ideation: Denies Homicidal Ideation: Denies Insight/Judgement: Poor Sleep: Poorly, Difficulty falling asleep Appetite: Good Muscle strength/Tone: Normal Gait/Station: Normal Psychiatric Findings - Problem List ([place] 1, 2,3) (1) Alcohol dependence with uncomplicated withdrawal Current Visit: Yes Status: Acute (2) Cannabis dependence, uncomplicated Current Visit: Yes Status: Acute (3) Cocaine dependence, uncomplicated Current Visit: Yes Status: Acute (4) Nicotine dependence Current Visit: Yes Status: Acute Qualifiers: Nicotine product type: cigarettes Substance use status: uncomplicated Qualified Code(s): F17.210 - Nicotine dependence, cigarettes, uncomplicated (5) Insomnia Current Visit: Yes Status: Acute (6) Substance induced mood disorder Current Visit: Yes Status: Acute - Initial Treatment Plan Initial Treatment Plan: Psychoeducation.Sleep hygiene.Detoxification.Medications (at reduced doses) : remeron 15 mg po hs + effexor 37.5 mg po daily.Side effects/benefits of both drugs are discussed with patient.He expresses his agreement to this regimen.Observation.
[2017-02-03 16:36] LABS: MCH 29.1 pg (25.7-33.7); MCHC 33.4 g/dl (32.0-35.9); MEAN CELL VOLUME 87.1 fl (80-96); MEAN PLT VOLUME 10.5 fl (7.5-11.1); PLATELET COUNT 145 K/MM3 (134-434); RDW 14.4 % (11.9-15.9)
[2017-02-03 16:42] LABS: URINE APPEARANCE CLEAR; URINE BILIRUBIN NEGATIVE (NEGATIVE); URINE BLOOD NEGATIVE (NEGATIVE); URINE COLOR YELLOW; URINE GLUCOSE (UA) NEGATIVE (NEGATIVE); URINE KETONE NEGATIVE (NEGATIVE); URINE LEUK ESTERASE NEGATIVE (NEGATIVE); URINE NITRITE NEGATIVE (NEGATIVE); URINE PROTEIN NEGATIVE (NEGATIVE); URINE UROBILINOGEN NEGATIVE mg/dL (0.2-1.0)
[2017-02-03 17:04] LABS: ALBUMIN 4.2 g/dl (3.4-5.0); ANION GAP 7 (8-16); CALCIUM 8.7 mg/dL (8.5-10.1); CO2 27 mmol/L (21-32); CREATININE 0.8 mg/dL (0.7-1.3); GLUCOSE,RANDOM 91 mg/dL (74-106); SGOT/AST 38 U/L (15-37); SGPT/ALT 42 U/L (12-78)
[2017-02-03 17:07] LABS: ALK PHOS 235 U/L (45-117); BILIRUBIN,TOTAL 0.5 mg/dL (0.2-1.0); TOT PROT 8.8 g/dl (6.4-8.2)
[2017-02-03] MEDS: [UNRECOGNIZED DRUG - OTHER] PO SCH (17:44)
[2017-02-03] MEDS: chlordiazePOXIDE HCL 25 MG CAPSULE PO SCH ×2 (17:45→22:55)
[2017-02-03 20:06] LABS: URINE LEUK ESTERASE Negative (NEGATIVE)
[2017-02-03] MEDS: valACYclovir HCL 500 MG TABLET (FP) PO SCH (22:55)
[2017-02-03] MEDS: THIAMINE HCL 100 MG TABLET (FP) PO SCH (22:55)
[2017-02-03] MEDS: MIRTAZAPINE 15 MG TABLET (FP) PO SCH (22:55)
[2017-02-04] MEDS: chlordiazePOXIDE HCL 25 MG CAPSULE PO SCH ×4 (05:46→22:13)
[2017-02-04] MEDS: NICOTINE POLACRILEX 2 MG GUM BUC PRN (05:48)
[2017-02-04] MEDS: NICOTINE 14 MG/24 HOURS TOPICAL PATCH TD SCH (10:20)
[2017-02-04] MEDS: [UNRECOGNIZED DRUG - OTHER] PO SCH (10:20)
[2017-02-04] MEDS: valACYclovir HCL 500 MG TABLET (FP) PO SCH ×2 (10:20→22:13)
[2017-02-04] MEDS: SULFAMETHOXAZOLE/TRIMETHOPRIM 800MG/160MG D.S. TABLET PO SCH (10:20)
[2017-02-04] MEDS: VENLAFAXINE HCL 37.5 MG TABLET PO SCH (10:20)
[2017-02-04] MEDS: PRENATAL VITAMINS W/ FOLIC ACID TABLET (FP) PO SCH (10:20)
[2017-02-04] MEDS ORDERED: PNEUMOC 13-VAL CONJ-DIP CRM/PF 0.5 ML DISP.SYRIN IM ONE (12:00)
--- NOTE | 2017-02-04 16:47 | PN ---
[facility] CIWA - CIWA Score Nausea/Vomitin-No Nausea/No Vomiting Muscle Tremors: 3 Anxiety: 4-Mod. Anxious/Guarded Agitation: 4-Moderately Restless Paroxysmal Sweats: No Perspiration Orientation: 0-Oriented Tacttile Disturbances: 2-Mild Itch/Numbness/Burn Auditory Disturbances: 0-None Visual Disturbances: 3-Moderate Sensitivity Headache: 0-None Present CIWA-Ar Total Score: 16 BHS Progress Note (SOAP) Subjective: Fatigue, Anxious, Sweating, Tremors. Objective: PT. A & O X 3, OBSERVED AMBULATING ON UNIT. NO ACUTE DISTRESS. 02/04/17 16:44 Vital Signs Temperature 96.4 F L 02/04/17 13:55 Pulse Rate 85 02/04/17 13:55 Respiratory Rate 18 02/04/17 13:55 Blood Pressure 106/72 02/04/17 13:55 O2 Sat by Pulse Oximetry (%) Laboratory Tests 02/03/17 02/03/17 02/03/17 14:00 14:00 14:00 WBC 3.0 L RBC 4.38 Hgb 12.7 Hct 38.2 MCV 87.1 MCH 29.1 MCHC 33.4 RDW 14.4 Plt Count 145 D MPV 10.5 Sodium 141 Potassium 3.6 D Chloride 107 Carbon Dioxide 27 Anion Gap 7 L BUN 16 Creatinine 0.8 Creat Clearance w eGFR > 60 Random Glucose 91 D Calcium 8.7 Total Bilirubin 0.5 D AST 38 H D ALT 42 Alkaline Phosphatase 235 H D Total Protein 8.8 H Albumin 4.2 Urine Color Urine Appearance Urine pH Ur Specific [place] Urine Protein Urine Glucose (UA) Urine Ketones Urine Blood Urine Nitrite Urine Bilirubin Urine Urobilinogen Ur Leukocyte Esterase RPR Titer Nonreactive 02/03/17 15:00 WBC RBC Hgb Hct MCV MCH MCHC RDW Plt Count MPV Sodium Potassium Chloride Carbon Dioxide Anion Gap BUN Creatinine Creat Clearance w eGFR Random Glucose Calcium Total Bilirubin AST ALT Alkaline Phosphatase Total Protein Albumin Urine Color Yellow Urine Appearance Clear Urine pH 5.0 Ur Specific [place] 1.017 Urine Protein Negative Urine Glucose (UA) Negative Urine Ketones Negative Urine Blood Negative Urine Nitrite Negative Urine Bilirubin Negative Urine Urobilinogen Negative Ur Leukocyte Esterase Negative RPR Titer LABS NOTED. Assessment: 02/04/17 16:44 WITHDRAWAL SYMPTOMS. Plan: CONTINUE DETOX. REPEAT AP TOMORROW AM FOR ELEVATED ADMISSION LEVEL.
[2017-02-04] MEDS: MIRTAZAPINE 15 MG TABLET (FP) PO SCH (22:13)
[2017-02-04] MEDS: THIAMINE HCL 100 MG TABLET (FP) PO SCH (22:13)
[2017-02-05] MEDS: chlordiazePOXIDE HCL 25 MG CAPSULE PO SCH ×2 (05:39→10:11)
[2017-02-05] MEDS: valACYclovir HCL 500 MG TABLET (FP) PO SCH ×2 (10:11→22:11)
[2017-02-05] MEDS: NICOTINE 14 MG/24 HOURS TOPICAL PATCH TD SCH (10:11)
[2017-02-05] MEDS: SULFAMETHOXAZOLE/TRIMETHOPRIM 800MG/160MG D.S. TABLET PO SCH (10:11)
[2017-02-05] MEDS: VENLAFAXINE HCL 37.5 MG TABLET PO SCH (10:11)
[2017-02-05] MEDS: [UNRECOGNIZED DRUG - OTHER] PO SCH (10:11)
[2017-02-05] MEDS: PRENATAL VITAMINS W/ FOLIC ACID TABLET (FP) PO SCH (10:11)
[2017-02-05] MEDS: NICOTINE POLACRILEX 2 MG GUM BUC PRN (10:13)
[2017-02-05] MEDS ORDERED: PNEUMOC 13-VAL CONJ-DIP CRM/PF 0.5 ML DISP.SYRIN IM ONE (12:00)
--- NOTE | 2017-02-05 16:22 | PN ---
S CIWA - CIWA Score Nausea/Vomitin Muscle Tremors: 3 Anxiety: 4-Mod. Anxious/Guarded Agitation: 4-Moderately Restless Paroxysmal Sweats: 3 Orientation: 0-Oriented Tacttile Disturbances: 0-None Auditory Disturbances: 0-None Visual Disturbances: 0-None Headache: 2-Mild CIWA-Ar Total Score: 18 BHS Progress Note (SOAP) Subjective: Sweating, anxious, tremor, interrupted sleep Objective: 02/05/17 16:21 Last Vital Signs Temp Pulse Resp BP Pulse Ox 97.2 F L 87 16 102/70 02/05/17 13:49 02/05/17 13:49 02/05/17 13:49 02/05/17 13:49 Laboratory Tests 02/03/17 02/03/17 02/03/17 14:00 14:00 14:00 WBC 3.0 L RBC 4.38 Hgb 12.7 Hct 38.2 MCV 87.1 MCH 29.1 MCHC 33.4 RDW 14.4 Plt Count 145 D MPV 10.5 Sodium 141 Potassium 3.6 D Chloride 107 Carbon Dioxide 27 Anion Gap 7 L BUN 16 Creatinine 0.8 Creat Clearance w eGFR > 60 Random Glucose 91 D Calcium 8.7 Total Bilirubin 0.5 D AST 38 H D ALT 42 Alkaline Phosphatase 235 H D Total Protein 8.8 H Albumin 4.2 Urine Color Urine Appearance Urine pH Ur Specific [place] Urine Protein Urine Glucose (UA) Urine Ketones Urine Blood Urine Nitrite Urine Bilirubin Urine Urobilinogen Ur Leukocyte Esterase RPR Titer Nonreactive 02/03/17 02/05/17 15:00 07:30 WBC RBC Hgb Hct MCV MCH MCHC RDW Plt Count MPV Sodium Potassium Chloride Carbon Dioxide Anion Gap BUN Creatinine Creat Clearance w eGFR Random Glucose Calcium Total Bilirubin AST ALT Alkaline Phosphatase 205 H Total Protein Albumin Urine Color Yellow Urine Appearance Clear Urine pH 5.0 Ur Specific [place] 1.017 Urine Protein Negative Urine Glucose (UA) Negative Urine Ketones Negative Urine Blood Negative Urine Nitrite Negative Urine Bilirubin Negative Urine Urobilinogen Negative Ur Leukocyte Esterase Negative RPR Titer Labs noted Assessment: 02/05/17 16:21 Withdrawal symptoms Plan: Continue detox
[2017-02-05] MEDS: chlordiazePOXIDE 5 MG CAPSULE PO SCH ×2 (17:59→22:11)
[2017-02-05] MEDS: MIRTAZAPINE 15 MG TABLET (FP) PO SCH (22:11)
[2017-02-05] MEDS: THIAMINE HCL 100 MG TABLET (FP) PO SCH (22:11)
[2017-02-06] MEDS: chlordiazePOXIDE 5 MG CAPSULE PO SCH ×2 (05:49→10:04)
[2017-02-06] MEDS: NICOTINE 14 MG/24 HOURS TOPICAL PATCH TD SCH (10:03)
[2017-02-06] MEDS: valACYclovir HCL 500 MG TABLET (FP) PO SCH ×2 (10:03→22:06)
[2017-02-06] MEDS: PRENATAL VITAMINS W/ FOLIC ACID TABLET (FP) PO SCH (10:03)
[2017-02-06] MEDS: SULFAMETHOXAZOLE/TRIMETHOPRIM 800MG/160MG D.S. TABLET PO SCH (10:03)
[2017-02-06] MEDS: VENLAFAXINE HCL 37.5 MG TABLET PO SCH (10:03)
[2017-02-06] MEDS: [UNRECOGNIZED DRUG - OTHER] PO SCH (10:04)
[2017-02-06] MEDS: NICOTINE POLACRILEX 2 MG GUM BUC PRN ×3 (10:06→22:06)
--- NOTE | 2017-02-06 11:39 | PN ---
BHS Progress Note (SOAP) Subjective: Anxious, interrupted sleep Objective: 02/06/17 11:34 Last Vital Signs Temp Pulse Resp BP Pulse Ox 99.3 F 98 H 20 111/78 02/06/17 09:34 02/06/17 09:34 02/06/17 09:34 02/06/17 09:34 Laboratory Tests 02/03/17 02/03/17 02/03/17 14:00 14:00 14:00 WBC 3.0 L RBC 4.38 Hgb 12.7 Hct 38.2 MCV 87.1 MCH 29.1 MCHC 33.4 RDW 14.4 Plt Count 145 D MPV 10.5 Sodium 141 Potassium 3.6 D Chloride 107 Carbon Dioxide 27 Anion Gap 7 L BUN 16 Creatinine 0.8 Creat Clearance w eGFR > 60 Random Glucose 91 D Calcium 8.7 Total Bilirubin 0.5 D AST 38 H D ALT 42 Alkaline Phosphatase 235 H D Total Protein 8.8 H Albumin 4.2 Urine Color Urine Appearance Urine pH Ur Specific [place] Urine Protein Urine Glucose (UA) Urine Ketones Urine Blood Urine Nitrite Urine Bilirubin Urine Urobilinogen Ur Leukocyte Esterase RPR Titer Nonreactive 02/03/17 02/05/17 15:00 07:30 WBC RBC Hgb Hct MCV MCH MCHC RDW Plt Count MPV Sodium Potassium Chloride Carbon Dioxide Anion Gap BUN Creatinine Creat Clearance w eGFR Random Glucose Calcium Total Bilirubin AST ALT Alkaline Phosphatase 205 H Total Protein Albumin Urine Color Yellow Urine Appearance Clear Urine pH 5.0 Ur Specific [place] 1.017 Urine Protein Negative Urine Glucose (UA) Negative Urine Ketones Negative Urine Blood Negative Urine Nitrite Negative Urine Bilirubin Negative Urine Urobilinogen Negative Ur Leukocyte Esterase Negative RPR Titer Labs noted Assessment: 02/06/17 11:37 Withdrawal symptoms Plan: Continue detox
[2017-02-06] MEDS: chlordiazePOXIDE HCL 10 MG CAPSULE PO SCH ×2 (17:04→22:06)
[2017-02-06] MEDS: THIAMINE HCL 100 MG TABLET (FP) PO SCH (22:06)
[2017-02-06] MEDS: MIRTAZAPINE 15 MG TABLET (FP) PO SCH (22:06)
[2017-02-06] MEDS: MAGNESIUM HYDROX 2400MG/30ML ORAL SUSPENSION 30 ML CUP PO PRN (23:47)
--- NOTE | 2017-02-07 01:58 | EKG ---
Test Reason : Blood Pressure : / mmHG Vent. Rate : 066 BPM Atrial Rate : 066 BPM P-R Int : 220 ms QRS Dur : 090 ms QT Int : 444 ms P-R-T Axes : 074 082 074 degrees QTc Int : 465 ms SINUS RHYTHM WITH 1ST DEGREE A-V BLOCK OTHERWISE NORMAL ECG WHEN COMPARED WITH ECG OF 23-JUN-2016 13:47, NO SIGNIFICANT CHANGE WAS FOUND Confirmed by ELLIE ROSE MD ([id number]) on 02/07/2017 1:57:49 AM Referred By: Confirmed By:ELLIE ROSE MD
[2017-02-07] MEDS: MAGNESIUM HYDROX 2400MG/30ML ORAL SUSPENSION 30 ML CUP PO PRN (03:12)
[2017-02-07] MEDS: chlordiazePOXIDE HCL 10 MG CAPSULE PO SCH (06:01)
[2017-02-07 06:05] VITALS: BP 104/76; PULSE 97; TEMP 98.7
[2017-02-07] MEDS: PRENATAL VITAMINS W/ FOLIC ACID TABLET (FP) PO SCH (10:14)
[2017-02-07] MEDS: NICOTINE 14 MG/24 HOURS TOPICAL PATCH TD SCH (10:14)
[2017-02-07] MEDS: [UNRECOGNIZED DRUG - OTHER] PO SCH (10:14)
[2017-02-07] MEDS: VENLAFAXINE HCL 37.5 MG TABLET PO SCH (10:14)
[2017-02-07] MEDS: SULFAMETHOXAZOLE/TRIMETHOPRIM 800MG/160MG D.S. TABLET PO SCH (10:14)
[2017-02-07] MEDS: valACYclovir HCL 500 MG TABLET (FP) PO SCH (10:15)
[2017-02-07] MEDS: NICOTINE POLACRILEX 2 MG GUM BUC PRN (10:17)
[2017-02-07] MEDS ORDERED: PNEUMOC 13-VAL CONJ-DIP CRM/PF 0.5 ML DISP.SYRIN IM ONE (12:00)
--- NOTE | 2017-02-07 12:23 | DS ---
[facility] Detox Discharge Summary Admission Date: 02/03/17 Discharge Date: 02/07/17 - History Present History: Alcohol Dependence, Cannabis Dependence, Cocaine Dependence Additional Comments: PATIENT GOING TO [facility] FOR AFTERCARE. PATIENT LEFT DETOX UNIT IN STABLE MEDICAL CONDITION. Pertinent Past History: Asthma, HIV, Depression, Insomnia, Peripheral Neuropathic Pain. - Physical Exam Results Vital Signs: Vital Signs Temperature 98.7 F 02/07/17 06:04 Pulse Rate 97 H 02/07/17 06:04 Respiratory Rate 16 02/07/17 06:04 Blood Pressure 104/76 02/07/17 06:04 O2 Sat by Pulse Oximetry (%) Pertinent Admission Physical Exam Findings: WITHDRAWAL SYMPTOMS. Laboratory Tests 02/03/17 02/03/17 02/03/17 14:00 14:00 14:00 WBC 3.0 L RBC 4.38 Hgb 12.7 Hct 38.2 MCV 87.1 MCH 29.1 MCHC 33.4 RDW 14.4 Plt Count 145 D MPV 10.5 Sodium 141 Potassium 3.6 D Chloride 107 Carbon Dioxide 27 Anion Gap 7 L BUN 16 Creatinine 0.8 Creat Clearance w eGFR > 60 Random Glucose 91 D Calcium 8.7 Total Bilirubin 0.5 D AST 38 H D ALT 42 Alkaline Phosphatase 235 H D Total Protein 8.8 H Albumin 4.2 Urine Color Urine Appearance Urine pH Ur Specific Palmer Urine Protein Urine Glucose (UA) Urine Ketones Urine Blood Urine Nitrite Urine Bilirubin Urine Urobilinogen Ur Leukocyte Esterase RPR Titer Nonreactive 02/03/17 02/05/17 15:00 07:30 WBC RBC Hgb Hct MCV MCH MCHC RDW Plt Count MPV Sodium Potassium Chloride Carbon Dioxide Anion Gap BUN Creatinine Creat Clearance w eGFR Random Glucose Calcium Total Bilirubin AST ALT Alkaline Phosphatase 205 H Total Protein Albumin Urine Color Yellow Urine Appearance Clear Urine pH 5.0 Ur Specific Palmer 1.017 Urine Protein Negative Urine Glucose (UA) Negative Urine Ketones Negative Urine Blood Negative Urine Nitrite Negative Urine Bilirubin Negative Urine Urobilinogen Negative Ur Leukocyte Esterase Negative RPR Titer LABS NOTED. - Treatment Hospital Course: Detox Protocol Followed, Detoxed Safely, Responded well, Discharged Condition Good, Rehab Referral Accepted Patient has Accepted a Rehab Referral to: [facility] (Dominic SMITH.) . - Medication Discharge Medications: Ambulatory Orders Elviteg/Cob/Emtri/Tenof Alafen [Genvoya Tablet] 1 each PO DAILY 06/23/16 Albuterol Sulfate Inhaler - [Ventolin HFA Inhaler -] 2 puff IH Q4H PRN #1 inhaler 06/27/16 Valacyclovir HCl [Valtrex -] 500 mg PO BID #30 tablet 06/27/16 Mirtazapine [Remeron [DO NOT STOCK]] 45 mg PO HS #30 tab 07/11/16 Venlafaxine HCl ER [Effexor Xr -] 37.5 mg PO DAILY #30 cap.er.24h 07/11/16 Sulfamethoxazole/Trimethoprim [Bactrim Ds Tablet] 1 tablet PO DAILY 02/03/17 - Diagnosis (1) Cannabis dependence, uncomplicated Current Visit: Yes Status: Chronic (2) Cocaine dependence, uncomplicated Current Visit: Yes Status: Chronic (3) Alcohol dependence with uncomplicated withdrawal Current Visit: Yes Status: Acute (4) Asthma Current Visit: Yes Status: Chronic Qualifiers: Asthma severity: mild Asthma persistence: intermittent Asthma complication type: uncomplicated Qualified Code(s): J45.20 - Mild intermittent asthma, uncomplicated (5) Human immunodeficiency virus infection Current Visit: Yes Status: Chronic (6) Nicotine dependence Current Visit: Yes Status: Chronic Qualifiers: Nicotine product type: cigarettes Substance use status: uncomplicated Qualified Code(s): F17.210 - Nicotine dependence, cigarettes, uncomplicated (7) Peripheral neuropathic pain Current Visit: Yes Status: Chronic (8) Insomnia Current Visit: Yes Status: Acute Qualifiers: Insomnia type: unspecified Qualified Code(s): G47.00 - Insomnia, unspecified (9) Substance induced mood disorder Current Visit: Yes Status: Acute - AMA Did Patient Leave Against Medical Advice: No
== END 2017-02-07 12:35 | disposition other institution (70) | DRG 897 ==
LOC: YASAS 10:13 → Y3N 13:06
PROVIDERS: ADMIT Internal Medicine; ATTEND Internal Medicine
PROC: HZ2ZZZZ Detoxification Services for Substance Abuse Treatment (ICD-10-PCS; principal; 2017-02-03)
DX: F10.230 Alcohol dependence with withdrawal, uncomplicated (principal); F14.20 Cocaine dependence, uncomplicated; F12.20 Cannabis dependence, uncomplicated; F17.210 Nicotine dependence, cigarettes, uncomplicated; F19.24 Other psychoactive substance dependence with psychoactive substance-induced mood disorder; F31.9 Bipolar disorder, unspecified; J45.20 Mild intermittent asthma, uncomplicated; Z21 Asymptomatic human immunodeficiency virus [HIV] infection status; G62.9 Polyneuropathy, unspecified; G47.00 Insomnia, unspecified; Z87.438 Personal history of other diseases of male genital organs
CPT/HCPCS: 36415; 80053; 81003; 84075; 85027; 86593; 93005; 93010

== ENCOUNTER 2017-02-07 12:48 | Inpatient (IN) | payer OTHER ==
[2017-02-07] MEDS ORDERED: MAG HYDROX/AL HYDROX/SIMETH 30 ML UNIT-DOSE CUP PO PRN (13:18)
[2017-02-07] MEDS ORDERED: LOPERAMIDE HCL 2 MG CAPSULE PO PRN (13:18)
[2017-02-07] MEDS ORDERED: MENTHOL/PHENOL 1 EACH UD MM PRN (13:18)
[2017-02-07] MEDS ORDERED: ACETAMINOPHEN 325 MG TABLET (FP) PO PRN (13:18)
[2017-02-07] MEDS ORDERED: P-EPHED 60MG/TRIPROLIDI 2.5MG TABLET PO PRN (13:18)
[2017-02-07] MEDS ORDERED: MAGNESIUM CITRATE 300 ML BOTTLE PO PRN (13:18)
[2017-02-07] MEDS ORDERED: IBUPROFEN 400 MG TABLET (FP) PO PRN (13:18)
[2017-02-07] MEDS ORDERED: guaiFENesin/D-METHORPHAN HB 10 ML UNIT-DOSE CUPS PO PRN (13:18)
[2017-02-07] MEDS ORDERED: ALBUTEROL SO4 18 GM HFA INHALER IH PRN (13:19)
--- NOTE | 2017-02-07 13:21 | HP ---
[facility] Rehab Assess/Revision - Admission History Admitted to Rehab from: [facility] [place] Date of Admission to Rehab: 02/06/17 - Vital signs Vital Signs: Vital Signs Period Temp Pulse Resp BP Sys/Mclaughlin Pulse Ox Last 24 Hr 98.3 F 87 18 109/70 - Findings Detox History & Physical reviewed: Yes Concur with findings: Yes Inpatient Rehab Admission - Initial Determination Are CD services needed?: Yes Free of communicable disease: Yes Not in need of hospitalization: Yes - Rehab Admission Criteria Comorbidities: Yes Patient is meeting Inpatient Rehab admission criteria:: Yes
[2017-02-07] MEDS: GABAPENTIN 300 MG CAPSULE (FP) PO SCH ×2 (14:32→21:05)
[2017-02-07] MEDS: ELVITEG/COB/EMTRI/TENOF (GENVOYA) TABLET (NF) PO SCH (14:34)
[2017-02-07] MEDS: MIRTAZAPINE 15 MG TABLET (FP) PO SCH (21:05)
[2017-02-07] MEDS: THIAMINE HCL 100 MG TABLET (FP) PO SCH (21:05)
[2017-02-07] MEDS: valACYclovir HCL 500 MG TABLET (FP) PO SCH (21:05)
[2017-02-08] MEDS: GABAPENTIN 300 MG CAPSULE (FP) PO SCH ×3 (06:29→21:10)
[2017-02-08] MEDS: ELVITEG/COB/EMTRI/TENOF (GENVOYA) TABLET (NF) PO SCH (07:10)
[2017-02-08] MEDS: SULFAMETHOXAZOLE/TRIMETHOPRIM 800MG/160MG D.S. TABLET PO SCH (10:02)
[2017-02-08] MEDS: valACYclovir HCL 500 MG TABLET (FP) PO SCH ×2 (10:02→21:10)
[2017-02-08] MEDS: PRENATAL VITAMINS W/ FOLIC ACID TABLET (FP) PO SCH (10:02)
[2017-02-08] MEDS: NICOTINE 7 MG/24 HOURS TOPICAL PATCH TD SCH (10:03)
[2017-02-08] MEDS: NICOTINE POLACRILEX 2 MG GUM BUC PRN (10:04)
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
[2017-02-08] MEDS: VENLAFAXINE HCL 37.5 MG E.R. CAPSULE (FP) PO SCH (11:42)
[2017-02-08] MEDS ORDERED: PNEUMOC 13-VAL CONJ-DIP CRM/PF 0.5 ML DISP.SYRIN IM ONE (12:00)
[2017-02-08] MEDS: THIAMINE HCL 100 MG TABLET (FP) PO SCH (21:10)
[2017-02-08] MEDS: MIRTAZAPINE 15 MG TABLET (FP) PO SCH (21:10)
[2017-02-09] MEDS: GABAPENTIN 300 MG CAPSULE (FP) PO SCH ×3 (06:34→21:33)
[2017-02-09] MEDS: ELVITEG/COB/EMTRI/TENOF (GENVOYA) TABLET (NF) PO SCH (07:34)
[2017-02-09] MEDS: PRENATAL VITAMINS W/ FOLIC ACID TABLET (FP) PO SCH (09:47)
[2017-02-09] MEDS: valACYclovir HCL 500 MG TABLET (FP) PO SCH ×2 (09:47→21:33)
[2017-02-09] MEDS: VENLAFAXINE HCL 37.5 MG E.R. CAPSULE (FP) PO SCH (09:47)
[2017-02-09] MEDS: SULFAMETHOXAZOLE/TRIMETHOPRIM 800MG/160MG D.S. TABLET PO SCH (09:47)
[2017-02-09] MEDS: NICOTINE 7 MG/24 HOURS TOPICAL PATCH TD SCH (09:47)
[2017-02-09] MEDS: NICOTINE POLACRILEX 2 MG GUM BUC PRN ×3 (09:49→21:35)
[2017-02-09] MEDS: THIAMINE HCL 100 MG TABLET (FP) PO SCH (21:33)
[2017-02-09] MEDS: MIRTAZAPINE 15 MG TABLET (FP) PO SCH (21:33)
[2017-02-10] MEDS: GABAPENTIN 300 MG CAPSULE (FP) PO SCH ×3 (06:39→21:11)
[2017-02-10] MEDS: NICOTINE POLACRILEX 2 MG GUM BUC PRN ×5 (06:40→21:13)
[2017-02-10] MEDS: ELVITEG/COB/EMTRI/TENOF (GENVOYA) TABLET (NF) PO SCH (07:56)
[2017-02-10] MEDS: PRENATAL VITAMINS W/ FOLIC ACID TABLET (FP) PO SCH (10:01)
[2017-02-10] MEDS: VENLAFAXINE HCL 37.5 MG E.R. CAPSULE (FP) PO SCH (10:01)
[2017-02-10] MEDS: valACYclovir HCL 500 MG TABLET (FP) PO SCH ×2 (10:01→21:11)
[2017-02-10] MEDS: SULFAMETHOXAZOLE/TRIMETHOPRIM 800MG/160MG D.S. TABLET PO SCH (10:01)
[2017-02-10] MEDS: NICOTINE 7 MG/24 HOURS TOPICAL PATCH TD SCH (10:02)
[2017-02-10] MEDS: THIAMINE HCL 100 MG TABLET (FP) PO SCH (21:11)
[2017-02-10] MEDS: MIRTAZAPINE 15 MG TABLET (FP) PO SCH (21:11)
[2017-02-10] MEDS: MAGNESIUM HYDROX 2400MG/30ML ORAL SUSPENSION 30 ML CUP PO PRN (21:49)
[2017-02-11] MEDS: NICOTINE POLACRILEX 2 MG GUM BUC PRN ×3 (06:52→21:07)
[2017-02-11] MEDS: GABAPENTIN 300 MG CAPSULE (FP) PO SCH ×3 (06:52→21:06)
[2017-02-11] MEDS: ELVITEG/COB/EMTRI/TENOF (GENVOYA) TABLET (NF) PO SCH (07:05)
[2017-02-11] MEDS: NICOTINE 7 MG/24 HOURS TOPICAL PATCH TD SCH (10:04)
[2017-02-11] MEDS: SULFAMETHOXAZOLE/TRIMETHOPRIM 800MG/160MG D.S. TABLET PO SCH (10:05)
[2017-02-11] MEDS: valACYclovir HCL 500 MG TABLET (FP) PO SCH ×2 (10:05→21:06)
[2017-02-11] MEDS: VENLAFAXINE HCL 37.5 MG E.R. CAPSULE (FP) PO SCH (10:05)
[2017-02-11] MEDS: PRENATAL VITAMINS W/ FOLIC ACID TABLET (FP) PO SCH (10:05)
[2017-02-11] MEDS ORDERED: hydrOXYzine HCL 25 MG TABLET (FP) PO PRN (17:35)
[2017-02-11] MEDS: hydrOXYzine PAMOATE 50 MG CAPSULE (FP) PO PRN (17:53)
[2017-02-11] MEDS: MIRTAZAPINE 15 MG TABLET (FP) PO SCH (21:06)
[2017-02-11] MEDS: THIAMINE HCL 100 MG TABLET (FP) PO SCH (21:06)
[2017-02-12] MEDS: GABAPENTIN 300 MG CAPSULE (FP) PO SCH ×3 (06:56→21:08)
[2017-02-12] MEDS: ELVITEG/COB/EMTRI/TENOF (GENVOYA) TABLET (NF) PO SCH (07:07)
[2017-02-12] MEDS: SULFAMETHOXAZOLE/TRIMETHOPRIM 800MG/160MG D.S. TABLET PO SCH (09:27)
[2017-02-12] MEDS: valACYclovir HCL 500 MG TABLET (FP) PO SCH ×2 (09:27→21:08)
[2017-02-12] MEDS: PRENATAL VITAMINS W/ FOLIC ACID TABLET (FP) PO SCH (09:27)
[2017-02-12] MEDS: NICOTINE 7 MG/24 HOURS TOPICAL PATCH TD SCH (09:27)
[2017-02-12] MEDS: VENLAFAXINE HCL 37.5 MG E.R. CAPSULE (FP) PO SCH (09:29)
[2017-02-12] MEDS: NICOTINE POLACRILEX 2 MG GUM BUC PRN ×3 (09:31→21:09)
[2017-02-12] MEDS: MIRTAZAPINE 15 MG TABLET (FP) PO SCH (21:08)
[2017-02-12] MEDS: THIAMINE HCL 100 MG TABLET (FP) PO SCH (21:08)
[2017-02-13] MEDS: GABAPENTIN 300 MG CAPSULE (FP) PO SCH ×3 (06:58→21:13)
[2017-02-13] MEDS: ELVITEG/COB/EMTRI/TENOF (GENVOYA) TABLET (NF) PO SCH (07:31)
[2017-02-13] MEDS: SULFAMETHOXAZOLE/TRIMETHOPRIM 800MG/160MG D.S. TABLET PO SCH (10:02)
[2017-02-13] MEDS: PRENATAL VITAMINS W/ FOLIC ACID TABLET (FP) PO SCH (10:02)
[2017-02-13] MEDS: VENLAFAXINE HCL 37.5 MG E.R. CAPSULE (FP) PO SCH (10:02)
[2017-02-13] MEDS: valACYclovir HCL 500 MG TABLET (FP) PO SCH ×2 (10:02→21:13)
[2017-02-13] MEDS: NICOTINE 7 MG/24 HOURS TOPICAL PATCH TD SCH (10:02)
[2017-02-13] MEDS: NICOTINE POLACRILEX 2 MG GUM BUC PRN ×3 (10:03→21:14)
[2017-02-13] MEDS: THIAMINE HCL 100 MG TABLET (FP) PO SCH (21:13)
[2017-02-13] MEDS: MIRTAZAPINE 15 MG TABLET (FP) PO SCH (21:13)
[2017-02-14] MEDS: NICOTINE POLACRILEX 2 MG GUM BUC PRN ×4 (06:35→21:17)
[2017-02-14] MEDS: GABAPENTIN 300 MG CAPSULE (FP) PO SCH ×3 (06:35→21:16)
[2017-02-14] MEDS: ELVITEG/COB/EMTRI/TENOF (GENVOYA) TABLET (NF) PO SCH (07:34)
[2017-02-14] MEDS: VENLAFAXINE HCL 37.5 MG E.R. CAPSULE (FP) PO SCH (09:55)
[2017-02-14] MEDS: SULFAMETHOXAZOLE/TRIMETHOPRIM 800MG/160MG D.S. TABLET PO SCH (09:55)
[2017-02-14] MEDS: valACYclovir HCL 500 MG TABLET (FP) PO SCH (09:55)
[2017-02-14] MEDS: NICOTINE 7 MG/24 HOURS TOPICAL PATCH TD SCH (09:55)
[2017-02-14] MEDS: PRENATAL VITAMINS W/ FOLIC ACID TABLET (FP) PO SCH (09:55)
[2017-02-14] MEDS: MIRTAZAPINE 15 MG TABLET (FP) PO SCH (21:16)
[2017-02-14] MEDS: THIAMINE HCL 100 MG TABLET (FP) PO SCH (21:17)
[2017-02-15] MEDS: GABAPENTIN 300 MG CAPSULE (FP) PO SCH ×3 (06:28→21:12)
[2017-02-15] MEDS: ELVITEG/COB/EMTRI/TENOF (GENVOYA) TABLET (NF) PO SCH (07:05)
[2017-02-15] MEDS: NICOTINE POLACRILEX 2 MG GUM BUC PRN ×3 (07:11→21:13)
[2017-02-15] MEDS: NICOTINE 7 MG/24 HOURS TOPICAL PATCH TD SCH (10:01)
[2017-02-15] MEDS: SULFAMETHOXAZOLE/TRIMETHOPRIM 800MG/160MG D.S. TABLET PO SCH (10:01)
[2017-02-15] MEDS: VENLAFAXINE HCL 37.5 MG E.R. CAPSULE (FP) PO SCH (10:01)
[2017-02-15] MEDS: PRENATAL VITAMINS W/ FOLIC ACID TABLET (FP) PO SCH (10:01)
[2017-02-15] MEDS: THIAMINE HCL 100 MG TABLET (FP) PO SCH (21:12)
[2017-02-15] MEDS: MIRTAZAPINE 15 MG TABLET (FP) PO SCH (21:12)
[2017-02-16] MEDS: GABAPENTIN 300 MG CAPSULE (FP) PO SCH ×3 (06:20→21:08)
[2017-02-16] MEDS: NICOTINE POLACRILEX 2 MG GUM BUC PRN ×3 (06:21→21:09)
[2017-02-16] MEDS: ELVITEG/COB/EMTRI/TENOF (GENVOYA) TABLET (NF) PO SCH (07:18)
[2017-02-16] MEDS: PRENATAL VITAMINS W/ FOLIC ACID TABLET (FP) PO SCH (10:15)
[2017-02-16] MEDS: SULFAMETHOXAZOLE/TRIMETHOPRIM 800MG/160MG D.S. TABLET PO SCH (10:15)
[2017-02-16] MEDS: NICOTINE 7 MG/24 HOURS TOPICAL PATCH TD SCH (10:18)
[2017-02-16] MEDS: VENLAFAXINE HCL 37.5 MG E.R. CAPSULE (FP) PO SCH (11:22)
[2017-02-16] MEDS: MIRTAZAPINE 15 MG TABLET (FP) PO SCH (21:08)
[2017-02-16] MEDS: THIAMINE HCL 100 MG TABLET (FP) PO SCH (21:09)
[2017-02-17] MEDS: GABAPENTIN 300 MG CAPSULE (FP) PO SCH ×3 (06:40→21:13)
[2017-02-17] MEDS: ELVITEG/COB/EMTRI/TENOF (GENVOYA) TABLET (NF) PO SCH (07:55)
[2017-02-17] MEDS: NICOTINE 7 MG/24 HOURS TOPICAL PATCH TD SCH (10:29)
[2017-02-17] MEDS: PRENATAL VITAMINS W/ FOLIC ACID TABLET (FP) PO SCH (10:29)
[2017-02-17] MEDS: SULFAMETHOXAZOLE/TRIMETHOPRIM 800MG/160MG D.S. TABLET PO SCH (10:29)
[2017-02-17] MEDS: VENLAFAXINE HCL 37.5 MG E.R. CAPSULE (FP) PO SCH (10:30)
[2017-02-17] MEDS: NICOTINE POLACRILEX 2 MG GUM BUC PRN ×4 (10:31→21:14)
[2017-02-17] MEDS: MIRTAZAPINE 15 MG TABLET (FP) PO SCH (21:13)
[2017-02-17] MEDS: THIAMINE HCL 100 MG TABLET (FP) PO SCH (21:13)
[2017-02-18] MEDS: GABAPENTIN 300 MG CAPSULE (FP) PO SCH ×3 (06:38→21:11)
[2017-02-18] MEDS: ELVITEG/COB/EMTRI/TENOF (GENVOYA) TABLET (NF) PO SCH (07:33)
[2017-02-18] MEDS: SULFAMETHOXAZOLE/TRIMETHOPRIM 800MG/160MG D.S. TABLET PO SCH (09:46)
[2017-02-18] MEDS: VENLAFAXINE HCL 37.5 MG E.R. CAPSULE (FP) PO SCH (09:46)
[2017-02-18] MEDS: PRENATAL VITAMINS W/ FOLIC ACID TABLET (FP) PO SCH (09:46)
[2017-02-18] MEDS: NICOTINE 7 MG/24 HOURS TOPICAL PATCH TD SCH (09:46)
[2017-02-18] MEDS: NICOTINE POLACRILEX 2 MG GUM BUC PRN ×2 (14:01→21:12)
[2017-02-18] MEDS: MIRTAZAPINE 15 MG TABLET (FP) PO SCH (21:11)
[2017-02-18] MEDS: THIAMINE HCL 100 MG TABLET (FP) PO SCH (21:11)
[2017-02-19] MEDS: GABAPENTIN 300 MG CAPSULE (FP) PO SCH ×3 (06:24→21:13)
[2017-02-19] MEDS: NICOTINE POLACRILEX 2 MG GUM BUC PRN ×3 (06:24→20:20)
[2017-02-19] MEDS: ELVITEG/COB/EMTRI/TENOF (GENVOYA) TABLET (NF) PO SCH (07:43)
[2017-02-19] MEDS: VENLAFAXINE HCL 37.5 MG E.R. CAPSULE (FP) PO SCH (09:25)
[2017-02-19] MEDS: SULFAMETHOXAZOLE/TRIMETHOPRIM 800MG/160MG D.S. TABLET PO SCH (09:25)
[2017-02-19] MEDS: NICOTINE 7 MG/24 HOURS TOPICAL PATCH TD SCH (09:25)
[2017-02-19] MEDS: PRENATAL VITAMINS W/ FOLIC ACID TABLET (FP) PO SCH (09:25)
[2017-02-19] MEDS: MIRTAZAPINE 15 MG TABLET (FP) PO SCH (21:13)
[2017-02-19] MEDS: THIAMINE HCL 100 MG TABLET (FP) PO SCH (21:13)
[2017-02-20] MEDS: GABAPENTIN 300 MG CAPSULE (FP) PO SCH ×3 (06:29→21:13)
[2017-02-20] MEDS: NICOTINE POLACRILEX 2 MG GUM BUC PRN ×2 (06:29→13:53)
[2017-02-20] MEDS: ELVITEG/COB/EMTRI/TENOF (GENVOYA) TABLET (NF) PO SCH (07:04)
[2017-02-20] MEDS: PRENATAL VITAMINS W/ FOLIC ACID TABLET (FP) PO SCH (09:23)
[2017-02-20] MEDS: SULFAMETHOXAZOLE/TRIMETHOPRIM 800MG/160MG D.S. TABLET PO SCH (09:24)
[2017-02-20] MEDS: NICOTINE 7 MG/24 HOURS TOPICAL PATCH TD SCH (09:24)
[2017-02-20] MEDS: VENLAFAXINE HCL 37.5 MG E.R. CAPSULE (FP) PO SCH (09:24)
[2017-02-20] MEDS: MAGNESIUM HYDROX 2400MG/30ML ORAL SUSPENSION 30 ML CUP PO PRN (10:16)
[2017-02-20] MEDS: THIAMINE HCL 100 MG TABLET (FP) PO SCH (21:13)
[2017-02-20] MEDS: MIRTAZAPINE 15 MG TABLET (FP) PO SCH (21:13)
[2017-02-21] MEDS: GABAPENTIN 300 MG CAPSULE (FP) PO SCH ×3 (06:18→21:26)
[2017-02-21] MEDS: NICOTINE POLACRILEX 2 MG GUM BUC PRN ×4 (06:19→21:26)
[2017-02-21] MEDS: ELVITEG/COB/EMTRI/TENOF (GENVOYA) TABLET (NF) PO SCH (07:08)
[2017-02-21] MEDS: PRENATAL VITAMINS W/ FOLIC ACID TABLET (FP) PO SCH (09:48)
[2017-02-21] MEDS: NICOTINE 7 MG/24 HOURS TOPICAL PATCH TD SCH (09:48)
[2017-02-21] MEDS: SULFAMETHOXAZOLE/TRIMETHOPRIM 800MG/160MG D.S. TABLET PO SCH (09:48)
[2017-02-21] MEDS: VENLAFAXINE HCL 37.5 MG E.R. CAPSULE (FP) PO SCH (09:48)
[2017-02-21] MEDS: MIRTAZAPINE 15 MG TABLET (FP) PO SCH (21:26)
[2017-02-21] MEDS: THIAMINE HCL 100 MG TABLET (FP) PO SCH (21:26)
[2017-02-22] MEDS: NICOTINE POLACRILEX 2 MG GUM BUC PRN ×3 (06:25→21:10)
[2017-02-22] MEDS: GABAPENTIN 300 MG CAPSULE (FP) PO SCH ×3 (06:25→21:10)
[2017-02-22] MEDS: ELVITEG/COB/EMTRI/TENOF (GENVOYA) TABLET (NF) PO SCH (07:57)
[2017-02-22] MEDS: SULFAMETHOXAZOLE/TRIMETHOPRIM 800MG/160MG D.S. TABLET PO SCH (09:37)
[2017-02-22] MEDS: VENLAFAXINE HCL 37.5 MG E.R. CAPSULE (FP) PO SCH (09:37)
[2017-02-22] MEDS: NICOTINE 7 MG/24 HOURS TOPICAL PATCH TD SCH (09:37)
[2017-02-22] MEDS: PRENATAL VITAMINS W/ FOLIC ACID TABLET (FP) PO SCH (09:37)
[2017-02-22] MEDS: MIRTAZAPINE 15 MG TABLET (FP) PO SCH (21:10)
[2017-02-22] MEDS: THIAMINE HCL 100 MG TABLET (FP) PO SCH (21:10)
[2017-02-23] MEDS: GABAPENTIN 300 MG CAPSULE (FP) PO SCH ×3 (06:21→21:06)
[2017-02-23] MEDS: NICOTINE POLACRILEX 2 MG GUM BUC PRN ×4 (06:22→21:07)
[2017-02-23] MEDS: ELVITEG/COB/EMTRI/TENOF (GENVOYA) TABLET (NF) PO SCH (07:08)
[2017-02-23] MEDS: SULFAMETHOXAZOLE/TRIMETHOPRIM 800MG/160MG D.S. TABLET PO SCH (09:55)
[2017-02-23] MEDS: PRENATAL VITAMINS W/ FOLIC ACID TABLET (FP) PO SCH (09:55)
[2017-02-23] MEDS: VENLAFAXINE HCL 37.5 MG E.R. CAPSULE (FP) PO SCH (09:55)
[2017-02-23] MEDS: NICOTINE 7 MG/24 HOURS TOPICAL PATCH TD SCH (09:55)
[2017-02-23] MEDS: MIRTAZAPINE 15 MG TABLET (FP) PO SCH (21:06)
[2017-02-23] MEDS: THIAMINE HCL 100 MG TABLET (FP) PO SCH (21:06)
[2017-02-24] MEDS: GABAPENTIN 300 MG CAPSULE (FP) PO SCH ×3 (07:04→21:11)
[2017-02-24] MEDS: ELVITEG/COB/EMTRI/TENOF (GENVOYA) TABLET (NF) PO SCH (07:05)
[2017-02-24] MEDS: PRENATAL VITAMINS W/ FOLIC ACID TABLET (FP) PO SCH (09:49)
[2017-02-24] MEDS: VENLAFAXINE HCL 37.5 MG E.R. CAPSULE (FP) PO SCH (09:49)
[2017-02-24] MEDS: NICOTINE POLACRILEX 2 MG GUM BUC PRN ×3 (09:50→21:12)
[2017-02-24] MEDS: SULFAMETHOXAZOLE/TRIMETHOPRIM 800MG/160MG D.S. TABLET PO SCH (09:50)
[2017-02-24] MEDS: NICOTINE 7 MG/24 HOURS TOPICAL PATCH TD SCH (09:50)
[2017-02-24] MEDS: THIAMINE HCL 100 MG TABLET (FP) PO SCH (21:11)
[2017-02-24] MEDS: MIRTAZAPINE 15 MG TABLET (FP) PO SCH (21:11)
[2017-02-25] MEDS: GABAPENTIN 300 MG CAPSULE (FP) PO SCH ×3 (06:57→21:17)
[2017-02-25] MEDS: NICOTINE POLACRILEX 2 MG GUM BUC PRN ×4 (06:57→21:18)
[2017-02-25] MEDS: ELVITEG/COB/EMTRI/TENOF (GENVOYA) TABLET (NF) PO SCH (07:05)
[2017-02-25] MEDS: PRENATAL VITAMINS W/ FOLIC ACID TABLET (FP) PO SCH (09:45)
[2017-02-25] MEDS: NICOTINE 7 MG/24 HOURS TOPICAL PATCH TD SCH (09:45)
[2017-02-25] MEDS: SULFAMETHOXAZOLE/TRIMETHOPRIM 800MG/160MG D.S. TABLET PO SCH (09:45)
[2017-02-25] MEDS: VENLAFAXINE HCL 37.5 MG E.R. CAPSULE (FP) PO SCH (09:47)
[2017-02-25] MEDS: MIRTAZAPINE 15 MG TABLET (FP) PO SCH (21:17)
[2017-02-25] MEDS: THIAMINE HCL 100 MG TABLET (FP) PO SCH (21:17)
[2017-02-26] MEDS: GABAPENTIN 300 MG CAPSULE (FP) PO SCH ×3 (07:05→21:11)
[2017-02-26] MEDS: NICOTINE POLACRILEX 2 MG GUM BUC PRN ×5 (07:05→21:12)
[2017-02-26] MEDS: ELVITEG/COB/EMTRI/TENOF (GENVOYA) TABLET (NF) PO SCH (07:07)
[2017-02-26] MEDS: PRENATAL VITAMINS W/ FOLIC ACID TABLET (FP) PO SCH (09:34)
[2017-02-26] MEDS: SULFAMETHOXAZOLE/TRIMETHOPRIM 800MG/160MG D.S. TABLET PO SCH (09:34)
[2017-02-26] MEDS: NICOTINE 7 MG/24 HOURS TOPICAL PATCH TD SCH (09:35)
[2017-02-26] MEDS: VENLAFAXINE HCL 37.5 MG E.R. CAPSULE (FP) PO SCH (09:35)
[2017-02-26] MEDS: hydrOXYzine PAMOATE 50 MG CAPSULE (FP) PO PRN (17:54)
[2017-02-26] MEDS: MIRTAZAPINE 15 MG TABLET (FP) PO SCH (21:11)
[2017-02-26] MEDS: THIAMINE HCL 100 MG TABLET (FP) PO SCH (21:11)
[2017-02-27] MEDS: GABAPENTIN 300 MG CAPSULE (FP) PO SCH ×3 (06:41→21:19)
[2017-02-27] MEDS: NICOTINE POLACRILEX 2 MG GUM BUC PRN ×3 (06:43→21:20)
[2017-02-27] MEDS: ELVITEG/COB/EMTRI/TENOF (GENVOYA) TABLET (NF) PO SCH (07:57)
[2017-02-27] MEDS ORDERED: PT OWN MED DRAWER 7, Y5N ONE (08:23)
[2017-02-27] MEDS: NICOTINE 7 MG/24 HOURS TOPICAL PATCH TD SCH (09:55)
[2017-02-27] MEDS: VENLAFAXINE HCL 37.5 MG E.R. CAPSULE (FP) PO SCH (09:55)
[2017-02-27] MEDS: SULFAMETHOXAZOLE/TRIMETHOPRIM 800MG/160MG D.S. TABLET PO SCH (09:55)
[2017-02-27] MEDS: PRENATAL VITAMINS W/ FOLIC ACID TABLET (FP) PO SCH (09:56)
[2017-02-27] MEDS: MIRTAZAPINE 15 MG TABLET (FP) PO SCH (21:19)
[2017-02-27] MEDS: THIAMINE HCL 100 MG TABLET (FP) PO SCH (21:19)
[2017-02-28] MEDS: GABAPENTIN 300 MG CAPSULE (FP) PO SCH ×3 (06:01→21:33)
[2017-02-28] MEDS: NICOTINE POLACRILEX 2 MG GUM BUC PRN ×4 (06:02→21:33)
[2017-02-28] MEDS: ELVITEG/COB/EMTRI/TENOF (GENVOYA) TABLET (NF) PO SCH (07:20)
[2017-02-28] MEDS: SULFAMETHOXAZOLE/TRIMETHOPRIM 800MG/160MG D.S. TABLET PO SCH (09:42)
[2017-02-28] MEDS: PRENATAL VITAMINS W/ FOLIC ACID TABLET (FP) PO SCH (09:42)
[2017-02-28] MEDS: VENLAFAXINE HCL 37.5 MG E.R. CAPSULE (FP) PO SCH (09:42)
[2017-02-28] MEDS: NICOTINE 7 MG/24 HOURS TOPICAL PATCH TD SCH (09:42)
[2017-02-28] MEDS: THIAMINE HCL 100 MG TABLET (FP) PO SCH (21:33)
[2017-02-28] MEDS: MIRTAZAPINE 15 MG TABLET (FP) PO SCH (21:33)
[2017-03-01] MEDS: GABAPENTIN 300 MG CAPSULE (FP) PO SCH ×3 (06:03→21:17)
[2017-03-01] MEDS: NICOTINE POLACRILEX 2 MG GUM BUC PRN ×4 (06:04→21:18)
[2017-03-01] MEDS: ELVITEG/COB/EMTRI/TENOF (GENVOYA) TABLET (NF) PO SCH (07:53)
[2017-03-01] MEDS: PRENATAL VITAMINS W/ FOLIC ACID TABLET (FP) PO SCH (09:41)
[2017-03-01] MEDS: SULFAMETHOXAZOLE/TRIMETHOPRIM 800MG/160MG D.S. TABLET PO SCH (09:41)
[2017-03-01] MEDS: NICOTINE 7 MG/24 HOURS TOPICAL PATCH TD SCH (09:42)
[2017-03-01] MEDS: VENLAFAXINE HCL 37.5 MG E.R. CAPSULE (FP) PO SCH (09:43)
[2017-03-01] MEDS: THIAMINE HCL 100 MG TABLET (FP) PO SCH (21:16)
[2017-03-01] MEDS: MIRTAZAPINE 15 MG TABLET (FP) PO SCH (21:17)
[2017-03-02] MEDS: GABAPENTIN 300 MG CAPSULE (FP) PO SCH ×3 (06:57→21:04)
[2017-03-02] MEDS: ELVITEG/COB/EMTRI/TENOF (GENVOYA) TABLET (NF) PO SCH (06:59)
[2017-03-02] MEDS: SULFAMETHOXAZOLE/TRIMETHOPRIM 800MG/160MG D.S. TABLET PO SCH (09:51)
[2017-03-02] MEDS: PRENATAL VITAMINS W/ FOLIC ACID TABLET (FP) PO SCH (09:51)
[2017-03-02] MEDS: VENLAFAXINE HCL 37.5 MG E.R. CAPSULE (FP) PO SCH (09:52)
[2017-03-02] MEDS: NICOTINE POLACRILEX 2 MG GUM BUC PRN ×3 (09:53→21:04)
[2017-03-02] MEDS: NICOTINE 7 MG/24 HOURS TOPICAL PATCH TD SCH (09:53)
[2017-03-02] MEDS: MIRTAZAPINE 15 MG TABLET (FP) PO SCH (21:04)
[2017-03-02] MEDS: THIAMINE HCL 100 MG TABLET (FP) PO SCH (21:04)
[2017-03-03] MEDS: GABAPENTIN 300 MG CAPSULE (FP) PO SCH ×3 (07:53→21:21)
[2017-03-03] MEDS: NICOTINE POLACRILEX 2 MG GUM BUC PRN ×3 (07:54→21:22)
[2017-03-03] MEDS: ELVITEG/COB/EMTRI/TENOF (GENVOYA) TABLET (NF) PO SCH (07:54)
[2017-03-03] MEDS: PRENATAL VITAMINS W/ FOLIC ACID TABLET (FP) PO SCH (09:47)
[2017-03-03] MEDS: VENLAFAXINE HCL 37.5 MG E.R. CAPSULE (FP) PO SCH (09:47)
[2017-03-03] MEDS: NICOTINE 7 MG/24 HOURS TOPICAL PATCH TD SCH (09:48)
[2017-03-03] MEDS: SULFAMETHOXAZOLE/TRIMETHOPRIM 800MG/160MG D.S. TABLET PO SCH (09:48)
[2017-03-03] MEDS: MAGNESIUM HYDROX 2400MG/30ML ORAL SUSPENSION 30 ML CUP PO PRN (10:52)
[2017-03-03] MEDS: MIRTAZAPINE 15 MG TABLET (FP) PO SCH (21:21)
[2017-03-03] MEDS: THIAMINE HCL 100 MG TABLET (FP) PO SCH (21:21)
[2017-03-04] MEDS: GABAPENTIN 300 MG CAPSULE (FP) PO SCH ×3 (06:21→21:06)
[2017-03-04] MEDS: NICOTINE POLACRILEX 2 MG GUM BUC PRN ×3 (06:21→21:07)
[2017-03-04] MEDS: ELVITEG/COB/EMTRI/TENOF (GENVOYA) TABLET (NF) PO SCH (07:43)
[2017-03-04] MEDS: VENLAFAXINE HCL 37.5 MG E.R. CAPSULE (FP) PO SCH (09:39)
[2017-03-04] MEDS: PRENATAL VITAMINS W/ FOLIC ACID TABLET (FP) PO SCH (09:39)
[2017-03-04] MEDS: SULFAMETHOXAZOLE/TRIMETHOPRIM 800MG/160MG D.S. TABLET PO SCH (09:39)
[2017-03-04] MEDS: NICOTINE 7 MG/24 HOURS TOPICAL PATCH TD SCH (09:40)
[2017-03-04] MEDS: THIAMINE HCL 100 MG TABLET (FP) PO SCH (21:06)
[2017-03-04] MEDS: MIRTAZAPINE 15 MG TABLET (FP) PO SCH (21:06)
[2017-03-05] MEDS: GABAPENTIN 300 MG CAPSULE (FP) PO SCH ×3 (06:40→21:10)
[2017-03-05] MEDS: NICOTINE POLACRILEX 2 MG GUM BUC PRN ×4 (06:41→21:11)
[2017-03-05] MEDS: ELVITEG/COB/EMTRI/TENOF (GENVOYA) TABLET (NF) PO SCH (07:38)
[2017-03-05] MEDS: SULFAMETHOXAZOLE/TRIMETHOPRIM 800MG/160MG D.S. TABLET PO SCH (09:22)
[2017-03-05] MEDS: NICOTINE 7 MG/24 HOURS TOPICAL PATCH TD SCH (09:22)
[2017-03-05] MEDS: PRENATAL VITAMINS W/ FOLIC ACID TABLET (FP) PO SCH (09:22)
[2017-03-05] MEDS: VENLAFAXINE HCL 37.5 MG E.R. CAPSULE (FP) PO SCH (09:22)
[2017-03-05] MEDS: hydrOXYzine PAMOATE 50 MG CAPSULE (FP) PO PRN (17:30)
[2017-03-05] MEDS: MIRTAZAPINE 15 MG TABLET (FP) PO SCH (21:10)
[2017-03-05] MEDS: THIAMINE HCL 100 MG TABLET (FP) PO SCH (21:10)
[2017-03-06] MEDS: NICOTINE POLACRILEX 2 MG GUM BUC PRN ×4 (06:51→21:05)
[2017-03-06] MEDS: GABAPENTIN 300 MG CAPSULE (FP) PO SCH ×3 (06:51→21:05)
[2017-03-06] MEDS: ELVITEG/COB/EMTRI/TENOF (GENVOYA) TABLET (NF) PO SCH (07:20)
[2017-03-06] MEDS: SULFAMETHOXAZOLE/TRIMETHOPRIM 800MG/160MG D.S. TABLET PO SCH (09:41)
[2017-03-06] MEDS: NICOTINE 7 MG/24 HOURS TOPICAL PATCH TD SCH (09:42)
[2017-03-06] MEDS: PRENATAL VITAMINS W/ FOLIC ACID TABLET (FP) PO SCH (09:42)
[2017-03-06] MEDS: VENLAFAXINE HCL 37.5 MG E.R. CAPSULE (FP) PO SCH (09:43)
[2017-03-06] MEDS: MIRTAZAPINE 15 MG TABLET (FP) PO SCH (21:05)
[2017-03-06] MEDS: THIAMINE HCL 100 MG TABLET (FP) PO SCH (21:05)
[2017-03-07] MEDS: GABAPENTIN 300 MG CAPSULE (FP) PO SCH ×3 (06:56→21:13)
[2017-03-07] MEDS: NICOTINE POLACRILEX 2 MG GUM BUC PRN ×4 (06:57→21:14)
[2017-03-07] MEDS: ELVITEG/COB/EMTRI/TENOF (GENVOYA) TABLET (NF) PO SCH (07:00)
[2017-03-07] MEDS: PRENATAL VITAMINS W/ FOLIC ACID TABLET (FP) PO SCH (10:06)
[2017-03-07] MEDS: NICOTINE 7 MG/24 HOURS TOPICAL PATCH TD SCH (10:06)
[2017-03-07] MEDS: SULFAMETHOXAZOLE/TRIMETHOPRIM 800MG/160MG D.S. TABLET PO SCH (10:06)
[2017-03-07] MEDS: VENLAFAXINE HCL 37.5 MG E.R. CAPSULE (FP) PO SCH (10:07)
[2017-03-07] MEDS: THIAMINE HCL 100 MG TABLET (FP) PO SCH (21:13)
[2017-03-07] MEDS: MIRTAZAPINE 15 MG TABLET (FP) PO SCH (21:13)
[2017-03-08] MEDS: GABAPENTIN 300 MG CAPSULE (FP) PO SCH (06:26)
[2017-03-08] MEDS: NICOTINE POLACRILEX 2 MG GUM BUC PRN ×2 (06:26→09:57)
[2017-03-08 06:35] VITALS: BP 108/77; PULSE 84; TEMP 98
[2017-03-08] MEDS: ELVITEG/COB/EMTRI/TENOF (GENVOYA) TABLET (NF) PO SCH (07:54)
[2017-03-08] MEDS: VENLAFAXINE HCL 37.5 MG E.R. CAPSULE (FP) PO SCH (09:56)
[2017-03-08] MEDS: SULFAMETHOXAZOLE/TRIMETHOPRIM 800MG/160MG D.S. TABLET PO SCH (09:56)
[2017-03-08] MEDS: PRENATAL VITAMINS W/ FOLIC ACID TABLET (FP) PO SCH (09:56)
[2017-03-08] MEDS: NICOTINE 7 MG/24 HOURS TOPICAL PATCH TD SCH (09:57)
--- NOTE | 2017-03-08 10:18 | PN ---
Psychiatric Progress Note Vital Signs: Vital Signs Period Temp Pulse Resp BP Sys/Mclaughlin Pulse Ox Last 24 Hr 98.0 F 84 16-18 108/77 Date of Session: 03/08/17 Chief Complaint:: discharge visit HPI: Patient has adressed alcohol, cocaine, cannabis, nicotine dependence comorbid MDD. ROS: HIV+ since 1994, anemia, bronchial asthma,herpes genitales medically managed. Current Medications: Active Medications Generic Name Dose Route Start Last Admin Trade Name Freq PRN Reason Stop Dose Admin Acetaminophen 650 mg 02/07/17 13:18 03/01/17 12:57 Tylenol - PO 650 mg Q4H PRN Administration FEVER OR PAIN Al Hydroxide/Mg Hydroxide 30 ml 02/07/17 13:18 02/14/17 15:16 Mylanta Oral Suspension - PO 30 ml Q6H PRN Administration DYSPEPSIA Albuterol Sulfate 2 puff 02/07/17 13:19 02/09/17 09:49 Ventolin Hfa Inhaler - IH 2 puff Q4H PRN Administration ASTHMA Elvitegravir/Cobicis/Emtricit/Tenof 1 tab 02/07/17 15:00 03/08/17 07:54 Genvoya (Non-Formulary) PO 1 tab DAILY@0800 ESTEBAN Administration Eucalyptus/Menthol/Phenol/Sorbitol 1 each 02/07/17 13:18 Cepastat Lozenge - MM Q4H PRN SORE THROAT Gabapentin 300 mg 02/07/17 14:30 03/08/17 06:26 Neurontin - PO 300 mg TID ESTEBAN Administration Guaifenesin 10 ml 02/07/17 13:18 Robitussin Dm - PO Q6H PRN COUGH Hydroxyzine Pamoate 50 mg 02/11/17 17:46 03/05/17 17:30 Vistaril - PO 50 mg Q4H PRN Administration ANXIETY Ibuprofen 400 mg 02/07/17 13:18 Motrin - PO Q6H PRN PAIN Loperamide HCl 4 mg 02/07/17 13:18 Imodium - PO Q6H PRN DIARRHEA Magnesium Citrate 300 ml 02/07/17 13:18 Citroma - PO Q48H PRN CONSTIPATION Magnesium Hydroxide 30 ml 02/07/17 13:18 03/03/17 10:52 Milk Of Magnesia - PO 30 ml DAILY PRN Administration CONSTIPATION Mirtazapine 45 mg 02/07/17 22:00 03/07/17 21:13 Remeron - PO 45 mg HS ESTEBAN Administration Nicotine 7 mg 02/08/17 10:00 03/08/17 09:57 Nicoderm Patch - TD Not Given DAILY ESTEBAN Nicotine Polacrilex 2 mg 02/07/17 13:21 03/08/17 09:57 Nicorette Gum - BUC 2 mg Q2H PRN Administration NICOTINE REPLACEMENT RX Multivit/Folic Acid/Iron 1 tab 02/08/17 10:00 03/08/17 09:56 Vitamins ([facility]) - PO 1 tab DAILY ESTEBAN Administration Pseudoephedrine/Triprolidine 1 combo 02/07/17 13:18 Actifed - PO TID PRN NASAL CONGESTION Thiamine HCl 100 mg 02/07/17 22:00 03/07/17 21:13 Vitamin B1 - PO 100 mg HS ESTEBAN Administration Trimethoprim/Sulfamethoxazole 1 each 02/08/17 10:00 03/08/17 09:56 Bactrim Ds - PO 1 each DAILY ESTEBAN Administration Venlafaxine HCl 37.5 mg 02/08/17 10:00 03/08/17 09:56 Effexor Xr - PO 37.5 mg DAILY ESTEBAN Administration Current Side Effect: No Lab tests ordered: No Lab tests reviewed: Yes Provider note:: Patient has completed today this treatment and met his goals, will continue to address his issues at the next level of care. He focused on importance of improving coping skill and utilizition of supports available to prvenent relapses. Medications Effexor, Remeron and Vistaril well tolerated, patient reports feeling better , he is hopefull, less anxious and energetic, scripts provided for 30 days supply, patient is stable for discharge today. Total face to face time:: 20 Mental Status Exam - Mental Status Exam Alert and Oriented to: Time, Place, Person Cognitive Function: Good Patient Appearance: Well Groomed Mood: Hopeful Affect: Appropriate, Mood Congruent Patient Behavior: Appropriate, Cooperative Speech Pattern: Clear, Appropriate Voice Loudness: Normal Thought Process: Intact, Goal Oriented Thought Disorder: Not Present Hallucinations: Denies Suicidal Ideation: Denies Homicidal Ideation: Denies Insight/Judgement: Fair Sleep: Fair Appetite: Fair Muscle strength/Tone: Normal Gait/Station: Normal Psychiatric Treatment Plan - Problem List (1) Cocaine dependence Current Visit: Yes (2) Alcohol dependence Current Visit: Yes (3) Cannabis dependence Current Visit: No Comment: NEGATIVE TOXICOLOGY TODAY (4) MDD (major depressive disorder) Current Visit: No Comment: By history. (5) Nicotine dependence Current Visit: No Qualifiers: Nicotine product type: cigarettes Substance use status: uncomplicated Qualified Code(s): F17.210 - Nicotine dependence, cigarettes, uncomplicated
== END 2017-03-08 10:35 | disposition home or self-care (01) | DRG 895 ==
LOC: YASAS 12:48 → Y5N 12:51
PROVIDERS: ADMIT Psychiatry & Neurology Psychiatry; ATTEND Psychiatry & Neurology Psychiatry
PROC: HZ42ZZZ Group Counseling for Substance Abuse Treatment, Cognitive-Behavioral (ICD-10-PCS; principal; 2017-02-07)
DX: F10.20 Alcohol dependence, uncomplicated (principal); F14.20 Cocaine dependence, uncomplicated; F33.9 Major depressive disorder, recurrent, unspecified; F12.20 Cannabis dependence, uncomplicated; F17.210 Nicotine dependence, cigarettes, uncomplicated; Z21 Asymptomatic human immunodeficiency virus [HIV] infection status; J45.20 Mild intermittent asthma, uncomplicated; G62.9 Polyneuropathy, unspecified; Z87.438 Personal history of other diseases of male genital organs
CPT/HCPCS: 90670

== ENCOUNTER 2018-10-26 14:14 | Inpatient (IN) | payer OTHER ==
[2018-10-26 19:15] VITALS: BMI 18.3
--- NOTE | 2018-10-26 20:20 | HP ---
CIWA Score Nausea/Vomitin Muscle Tremors: 4-Moderate,w/Arms Extend Anxiety: 4-Mod. Anxious/Guarded Agitation: 4-Moderately Restless Paroxysmal Sweats: 2 Orientation: 0-Oriented Tacttile Disturbances: 3-Moderate Itch/Numb/Burn Auditory Disturbances: 0-None Visual Disturbances: 0-None Headache: 0-None Present CIWA-Ar Total Score: 19 - Admission Criteria OASAS Guidelines: Admission for Medically Managed Detox: Requires at least one of the followin. CIWA greater than 12 2. Seizures within the past 24 hours 3. Delirium tremens within the past 24 hours 4. Hallucinations within the past 24 hours 5. Acute intervention needed for co occurring medical disorder 6. Acute intervention needed for co occurring psychiatric disorder 7. Severe withdrawal that cannot be handled at a lower level of care (continued vomiting, continued diarrhea, abnormal vital signs) requiring intravenous medication and/or fluids 8. Admission ROS [facility] Chief Complaint: Alcohol withdrawal symptoms Allergies/Adverse Reactions: Allergies Allergy/AdvReac Type Severity Reaction Status Date / Time No Known Allergies Allergy Verified 10/26/18 18:58 History of Present Illness: 52 years old male with a long history of alcohol dependence (since age 19) is seeking admission to detox. Patient reports that his last detox was in April 2017. He reports insignificant period of sobriety. He has history of AIDS ( VIRAL LOAD 30), Asthma, peripheral neuropathic pain, genital herpes and depression. He denies suicide attempt/ suicidal ideation at this time. Exam Limitations: No Limitations - Ebola screening Have you traveled outside of the country in the last 21 days: No (N) Have you had contact with anyone from an Ebola affected area: No Do you have a fever: No - Review of Systems Constitutional: Chills, Malaise, Night Sweats, Changes in sleep, Weakness EENT: reports: No Symptoms Reported Respiratory: reports: Cough Cardiac: reports: No Symptoms Reported GI: reports: Diarrhea (x 3), Nausea, Poor Appetite, Poor Fluid Intake, Vomiting (x 1), Abdominal cramping : reports: No Symptoms Reported Musculoskeletal: reports: Back Pain, Muscle Pain Integumentary: reports: Dryness, Flushing Neuro: reports: Tremors, Weakness Endocrine: reports: No Symptoms Reported Hematology: reports: No Symptoms Reported Psychiatric: reports: Mood/Affect Appropiate, Orientated x3, Anxious, Depressed Other Systems: Reviewed and Negative Patient History - Patient Medical History Hx Anemia: No Hx Asthma: Yes (Albuterol) Hx Chronic Obstructive Pulmonary Disease (COPD): No Hx Cancer: No Hx Cardiac Disorders: No Hx Congestive Heart Failure: No Hx Hypertension: No Hx Hypercholesterolemia: No Hx Pacemaker: No HX Cerebrovascular Accident: No Hx Seizures: No Hx Dementia: No Hx Diabetes: No Hx Gastrointestinal Disorders: No Hx Liver Disease: No Hx Genitourinary Disorders: No Hx Sexually Transmitted Disorders: Yes (Genital herpes) Hx Renal Disease (ESRD): No Hx Thyroid Disease: No Hx Human Immunodeficiency Virus (HIV): Yes (POSITIVE SINCE 1997-CHANGE TO GENVOYA(PT DID NOT BRING MED)) Hx Hepatitis C: No (Last Tested: 01/2017: NEGATIVE.) Hx Depression: Yes (Effexor) Hx Suicide Attempt: No (Denies suicidal ideation at this time) Hx Bipolar Disorder: No Hx Schizophrenia: No - Patient Surgical History Past Surgical History: No Hx Neurologic Surgery: No Hx Cataract Extraction: No Hx Cardiac Surgery: No Hx Lung Surgery: No Hx Abdominal Surgery: No Hx Appendectomy: No Hx Cholecystectomy: No Hx Genitourinary Surgery: No Hx Orthopedic Surgery: No Anesthesia Reaction: No - PPD History Previous Implant?: Yes Documented Results: Negative w/o proof Implanted On Prior [facility] Admission?: Yes Date: 06/23/16 Results: 0 mm PPD to be Administered?: Yes - Reproductive History Patient is a Female of Child Bearing Age (11 -55 yrs old): No (Male) - Smoking Cessation Smoking history: Current every day smoker Have you smoked in the past 12 months: Yes Aproximately how many cigarettes per day: 10 Cigars Per Day: 0 Hx Chewing Tobacco Use: No Initiated information on smoking cessation: Yes 'Breaking Loose' booklet given: 10/26/18 - Substance & Tx. History Hx Alcohol Use: Yes Hx Substance Use: Yes Substance Use Type: Alcohol, Cocaine, Tranquilizers Hx Substance Use Treatment: Yes ([facility]) - Substances abused Alcohol Substance route: Oral Frequency: Daily Amount used: 1 gallon of hina. Age of first use: 17 Date of last use: 10/26/18 Crack Substance route: Smoking Frequency: 3-6 times per week Amount used: 300 hundred dollars Age of first use: 39 Date of last use: 10/25/18 Crystal meth Substance route: Smoking Frequency: 1-2 times per week Amount used: 120 dollars Age of first use: 51 Date of last use: 10/25/18 Family Disease History - Family Disease History Family Disease History: [place]: Sister (Ovarian, Ca; AIDS, ), Other: Father (CVA, ; Used Alcohol.), Mother (TB, ; Used Alcohol.), Brother ( Cirrhosis of Liver, Decxeased; OD, .) Admission Physical Exam [facility] - Vital Signs Vital Signs: Vital Signs - 24 hr 10/26/18 18:56 Temperature 99 F Pulse Rate 86 Respiratory 20 Rate Blood Pressure 111/66 - Physical General Appearance: Yes: Moderate Distress, Tremorous, Sweating, Anxious HEENTM: Yes: Within Normal Limits Respiratory: Yes: Lungs Clear, Normal Breath Sounds, No Respiratory Distress Neck: Yes: Supple Breast: Yes: Breast Exam Deferred Cardiology: Yes: Regular Rhythm, Regular Rate Abdominal: Yes: Normal Bowel Sounds, Soft Genitourinary: Yes: Within Normal Limits Back: Yes: Normal Inspection Musculoskeletal: Yes: Back pain, Muscle Pain Extremities: Yes: Tremors Neurological: Yes: Alert, Normal Mood/Affect Integumentary: Yes: Warm Lymphatic: Yes: Within Normal Limits - Diagnostic (1) AIDS (acquired immune deficiency syndrome) Current Visit: Yes Status: Acute (2) anxiety and depression Current Visit: No Status: Active (3) Alcohol dependence with uncomplicated withdrawal Current Visit: No Status: Chronic (4) Asthma Current Visit: No Status: Chronic Qualifiers: Asthma severity: mild Asthma persistence: intermittent Asthma complication type: uncomplicated Qualified Code(s): J45.20 - Mild intermittent asthma, uncomplicated (5) Cannabis dependence Current Visit: No Status: Chronic Comment: NEGATIVE TOXICOLOGY TODAY (6) Cocaine dependence Current Visit: No Status: Chronic Qualifiers: Substance use status: uncomplicated Qualified Code(s): F14.20 - Cocaine dependence, uncomplicated (7) Human immunodeficiency virus infection Current Visit: No Status: Chronic (8) Nicotine dependence Current Visit: No Status: Chronic Qualifiers: Nicotine product type: cigarettes Substance use status: uncomplicated Qualified Code(s): F17.210 - Nicotine dependence, cigarettes, uncomplicated (9) Peripheral neuropathic pain Current Visit: No Status: Chronic Cleared for Admission [facility] - Detox or Rehab [facility] Level of Care: Medically Managed Detox Regimen/Protocol: Librium Claeared for Rehab Admission: No Breathalyzer - Breathalyzer Breathalyzer: 0 Urine Drug Screen - Test Device Lot number: [id number] Expiration date: 07/20/20 - Control Is test valid?: Yes - Results Drug screen NEGATIVE: No Urine drug screen results: THC-Marijuana, NUBIA-Cocaine Inpatient Rehab Admission - Rehab Decision to Admit Inpatient rehab admission?: No
[2018-10-26] MEDS ORDERED: ACETAMINOPHEN 325 MG TABLET (FP) PO PRN ×2 (20:39)
[2018-10-26] MEDS ORDERED: IBUPROFEN 400 MG TABLET (FP) PO PRN (20:39)
[2018-10-26] MEDS ORDERED: chlordiazePOXIDE HCL 25 MG CAPSULE PO PRN (20:39)
[2018-10-26] MEDS ORDERED: METHOCARBAMOL 500 MG TABLET PO PRN (20:39)
[2018-10-26] MEDS ORDERED: hydrOXYzine PAMOATE 25 MG CAPSULE (FP) PO PRN (20:39)
[2018-10-26] MEDS ORDERED: MAGNESIUM HYDROX 2400MG/30ML ORAL SUSPENSION 30 ML CUP PO PRN (20:39)
[2018-10-26] MEDS ORDERED: MAGNESIUM CITRATE 300 ML BOTTLE PO PRN (20:39)
[2018-10-26] MEDS ORDERED: MAG HYDROX/AL HYDROX/SIMETH 30 ML UNIT-DOSE CUP PO PRN (20:39)
[2018-10-26] MEDS ORDERED: MENTHOL/PHENOL 1 EACH UD MM PRN (20:39)
[2018-10-26] MEDS ORDERED: BISMUTH SUBSALICYLATE 524 MG/30 ML UD PO PRN (20:39)
[2018-10-26] MEDS ORDERED: ALBUTEROL SO4 8 GM HFA INHALER IH PRN (20:42)
[2018-10-26] MEDS: valACYclovir HCL 500 MG TABLET (FP) PO SCH (21:45)
[2018-10-26] MEDS: THIAMINE HCL 100 MG TABLET (FP) PO SCH (21:45)
[2018-10-26] MEDS: GABAPENTIN 300 MG CAPSULE (FP) PO SCH (21:45)
[2018-10-26] MEDS: chlordiazePOXIDE HCL 25 MG CAPSULE PO SCH (22:34)
[2018-10-27] MEDS: chlordiazePOXIDE HCL 25 MG CAPSULE PO SCH ×4 (05:14→22:03)
[2018-10-27] MEDS: GABAPENTIN 300 MG CAPSULE (FP) PO SCH ×3 (05:14→22:03)
[2018-10-27 10:27] LABS: HEMATOCRIT 33.8 % (35.4-49); HEMOGLOBIN 11.3 GM/dL (11.7-16.9); MCH 29.1 pg (25.7-33.7); MCHC 33.6 g/dl (32.0-35.9); MEAN CELL VOLUME 86.6 fl (80-96); MEAN PLT VOLUME 9.2 fl (7.5-11.1); PLATELET COUNT 129 K/MM3 (134-434); RDW 14.7 % (11.9-15.9)
[2018-10-27 10:31] LABS: ALBUMIN 3.2 g/dl (3.4-5.0); BILIRUBIN,TOTAL 0.6 mg/dL (0.2-1); BLOOD UREA NITROGEN 6.9 mg/dL (7-18); CALCIUM 9.1 mg/dL (8.5-10.1); CREATININE 0.7 mg/dL (0.55-1.3); TOT PROT 6.9 g/dl (6.4-8.2)
[2018-10-27 10:37] LABS: POTASSIUM 2.8 mmol/L (3.5-5.1)
[2018-10-27] MEDS ORDERED: POTASSIUM CHLORIDE TABS 20 MEQ TABLET.ER (FP) PO ONE (10:38)
--- NOTE | 2018-10-27 11:50 | CONSULT ---
[facility] Psychiatric Consult - Data Date of interview: 10/27/18 Admission source: [facility] Identifying data: Readmission to [facility] for this 52 y/o AA male self- referred for detoxification treatment (alcohol, cannabis, cocaine, crystal methamphetamine). Interviewed at [address] [place] [address]. Patient is single without children, domiciled ([place] setting), unemployed and supported on SSD benefits. Substance Abuse History: Discussed with the patient. Details are concordant with sherrie [facility] report as follows : Smoking history: Current every day smoker. Have you smoked in the past 12 months: Yes. Aproximately how many cigarettes per day: 10. Cigars Per Day: 0. Hx Chewing Tobacco Use: No. Initiated information on smoking cessation: Yes. 'Breaking Loose' booklet given : 10/26/18. - Substance & Tx. History. Hx Alcohol Use: Yes. Hx Substance Use : Yes. Substance Use Type: Alcohol, Cocaine, Tranquilizers. Hx Substance Use Treatment: Yes ([facility]). - Substances abused. Alcohol. Substance route: Oral. Frequency: Daily. Amount used: 1 gallon of hina. Age of first use: 17. Date of last use: 10/26/18. Crack. Substance route: Smoking. Frequency: 3-6 times per week. Amount used: 300 hundred dollars. Age of first use: 39. Date of last use: 10/25/18. Crystal meth. Substance route: Smoking. Frequency: 1-2 times per week. Amount used: 120 dollars. Age of first use: 51. Date of last use: 10/25/18 Medical History: Medical profile is remarkable for peripheral neuraopathy, HIV infection since 1994 (on ART medications : non-adherent as per self-report), anemia, bronchial asthma and a history of herpes genitalis. Psychiatric History: In this interview, the patient denies prior history of psychiatric hospitalizations (not corroborated by existing records at [facility] : " history of multiple psychiatric hospitalizations : [facility] and [facility] since 2016) ". Onset of emotional disturbances : eight years ago. Reportedly diagnosed with MDD, Anxiety Disorder and Seasonal Affective Disorder (SAD). Mr Deras reports that he is still followed by Dr Greer Chery ([facility] OPD clinic located at [facility]). Managed with remeron 45 mg/hs + effexor 37.5 mg/day (self-report). Patient denies history of suicide attempts. Physical/Sexual Abuse/Trauma History: No reported history of abuse. Additional Comment: Urine drug screen results: THC-Marijuana, NUBIA-Cocaine. Noted. Mental Status Exam - Mental Status Exam Alert and Oriented to: Time, Place, Person Cognitive Function: Good Patient Appearance: Well Groomed (thin habitus) Mood: Hopeful, Euthymic Affect: Appropriate, Normal Range Patient Behavior: Fatigued, Cooperative Speech Pattern: Clear, Appropriate Voice Loudness: Normal Thought Process: Intact, Goal Oriented Thought Disorder: Not Present Hallucinations: Denies Suicidal Ideation: Denies Homicidal Ideation: Denies Insight/Judgement: Poor Sleep: Poorly, Difficulty falling asleep Appetite: Good, Weight loss Muscle strength/Tone: Normal Gait/Station: Normal Psychiatric Findings - Problem List ([place] 1, 2,3) (1) Alcohol dependence with uncomplicated withdrawal Current Visit: Yes Status: Acute (2) Cannabis dependence Current Visit: Yes Status: Chronic Comment: NEGATIVE TOXICOLOGY TODAY (3) Cocaine dependence Current Visit: Yes Status: Chronic Qualifiers: Substance use status: uncomplicated Qualified Code(s): F14.20 - Cocaine dependence, uncomplicated (4) Nicotine dependence Current Visit: Yes Status: Chronic Qualifiers: Nicotine product type: cigarettes Substance use status: uncomplicated Qualified Code(s): F17.210 - Nicotine dependence, cigarettes, uncomplicated (5) MDD (major depressive disorder) Current Visit: Yes Status: Chronic Comment: By history. (6) Substance induced mood disorder Current Visit: Yes Status: Suspected (7) Insomnia Current Visit: Yes Status: Chronic Qualifiers: Insomnia type: unspecified Qualified Code(s): G47.00 - Insomnia, unspecified - Initial Treatment Plan Initial Treatment Plan: Psychoeducation. Sleep hygiene. Support. Detoxification. Counseling. Resumed : effexor 37.5 mg po daily + remeron 15 mg po hs (confirmed by refills of 09/07/18 + 09/24/[address] [facility]). Side effects/ benefits of both drugs are discussed with the patient. Agrees to this plan of care. Consent (verbal) granted to MD. Alford.
[2018-10-27] MEDS: PRENATAL VITAMINS W/ FOLIC ACID TABLET (FP) PO SCH (12:17)
[2018-10-27] MEDS: valACYclovir HCL 500 MG TABLET (FP) PO SCH ×2 (12:18→22:03)
[2018-10-27] MEDS: SULFAMETHOXAZOLE/TRIMETHOPRIM 800MG/160MG D.S. TABLET PO SCH (12:18)
[2018-10-27] MEDS: NICOTINE 14 MG/24 HOURS TOPICAL PATCH TD SCH (12:22)
[2018-10-27] MEDS: NICOTINE POLACRILEX 2 MG GUM BUC PRN (14:25)
--- NOTE | 2018-10-27 16:08 | PN ---
[facility] CIWA - CIWA Score Nausea/Vomitin-No Nausea/No Vomiting Muscle Tremors: 3 Anxiety: 3 Agitation: 1-Slight > Activity Paroxysmal Sweats: No Perspiration Orientation: 0-Oriented Tacttile Disturbances: 3-Moderate Itch/Numb/Burn Auditory Disturbances: 1-Very Mild Visual Disturbances: 2-Mild Sensitivity Headache: 0-None Present CIWA-Ar Total Score: 13 S Progress Note (SOAP) Subjective: Tremors, anxious, Body Aches. Objective: PATIENT A & O X 3, OBSERVED AMBULATING ON DETOX UNIT UNASSISTED. IN NO ACUTE DISTRESS. 10/27/18 16:04 Vital Signs Temperature 97.3 F L 10/27/18 13:11 Pulse Rate 83 10/27/18 13:11 Respiratory Rate 18 10/27/18 13:11 Blood Pressure 100/73 10/27/18 13:11 O2 Sat by Pulse Oximetry (%) Laboratory Tests 10/27/18 10/27/18 10/27/18 08:00 08:00 08:00 WBC 2.0 L RBC 3.90 L Hgb 11.3 L Hct 33.8 L D MCV 86.6 MCH 29.1 MCHC 33.6 RDW 14.7 Plt Count 129 L MPV 9.2 D Sodium 144 Potassium 2.8 L* Chloride 107 Carbon Dioxide 33 H Anion Gap 5 L BUN 6.9 L Creatinine 0.7 Est GFR (CKD-EPI)AfAm 124.87 Est GFR (CKD-EPI)NonAf 107.74 Random Glucose 80 Calcium 9.1 Total Bilirubin 0.6 AST 33 ALT 34 Alkaline Phosphatase 241 H Total Protein 6.9 Albumin 3.2 L RPR Titer Nonreactive LABS NOTED. PATIENT HAS HAD ELEVATED ALKALINE PHOSPHATASE LEVELS ON PREVIOUS ADMISSIONS. PATIENT HAS HAD LOW WBC, PLATELET, AND POTASSIUM LEVELS AND HAS BEEN ANEMIC ON PREVIOUS ADMISSIONS. 10/27/18 16:04 Assessment: 10/27/18 16:04 WITHDRAWAL SYMPTOMS. HYPOKALEMIA. PANCYTOPENIA. ELEVATED ALKALINE PHOSPHATASE LEVEL. 10/27/18 16:05 Plan: CONTINUED ETOX. K-DUR, 20 MEQ PO BID FOR LOW POTASSIUM LEVEL NOTED ON DETOX ADMISSION. RE-CHECK POTASSIUM LEVEL ON 10/29/2018 TO SEE IF ANY CHANGE FROM ADMISSION POTASSIUM LEVEL. RE-CHECK ALKALINE PHOSPHATASE LEVEL ON 10/29/2018 TO SEE IF ANY CHANGE FROM ADMISSION ALKALINE PHOSPHATSE LEVEL. PATIENT IS CURRENTLY RECEIVING DAILY MVI CONTAINING B VITAMINS AND IRON WHILE ADMITTED FOR DETOX.
[2018-10-27] MEDS: POTASSIUM CHLORIDE TABS 20 MEQ TABLET.ER (FP) PO SCH (18:05)
[2018-10-27] MEDS: BACITRACIN 15 GM TUBE TOPICAL OINTMENT TP SCH ×2 (18:06→22:03)
[2018-10-27] MEDS ORDERED: MIRTAZAPINE 30 MG TABLET (FP) PO SCH (22:00)
[2018-10-27] MEDS: THIAMINE HCL 100 MG TABLET (FP) PO SCH (22:03)
[2018-10-27] MEDS: MIRTAZAPINE 15 MG TABLET (FP) PO SCH (22:03)
[2018-10-28] MEDS: GABAPENTIN 300 MG CAPSULE (FP) PO SCH ×3 (05:19→22:38)
[2018-10-28] MEDS: chlordiazePOXIDE HCL 25 MG CAPSULE PO SCH ×4 (05:19→22:38)
[2018-10-28] MEDS: valACYclovir HCL 500 MG TABLET (FP) PO SCH ×2 (10:35→23:34)
[2018-10-28] MEDS: VENLAFAXINE HCL 37.5 MG E.R. CAPSULE (FP) PO SCH (10:35)
[2018-10-28] MEDS: PRENATAL VITAMINS W/ FOLIC ACID TABLET (FP) PO SCH (10:35)
[2018-10-28] MEDS: NICOTINE 14 MG/24 HOURS TOPICAL PATCH TD SCH (10:36)
[2018-10-28] MEDS: SULFAMETHOXAZOLE/TRIMETHOPRIM 800MG/160MG D.S. TABLET PO SCH (10:36)
[2018-10-28] MEDS: POTASSIUM CHLORIDE TABS 20 MEQ TABLET.ER (FP) PO SCH ×2 (10:36→17:36)
[2018-10-28] MEDS: NICOTINE POLACRILEX 2 MG GUM BUC PRN (10:37)
[2018-10-28] MEDS: BACITRACIN 15 GM TUBE TOPICAL OINTMENT TP SCH ×2 (10:38→22:38)
--- NOTE | 2018-10-28 11:36 | PN ---
[facility] CIWA - CIWA Score Nausea/Vomitin-Mild Nausea/No Vomiting Muscle Tremors: 2 Anxiety: 3 Agitation: 2 Paroxysmal Sweats: 2 Orientation: 0-Oriented Tacttile Disturbances: 1-Very Mild Itch/Numbness Auditory Disturbances: 0-None Visual Disturbances: 0-None Headache: 0-None Present CIWA-Ar Total Score: 11 S Progress Note (SOAP) Subjective: 52 years old male multiple patient [facility] admission since 2010 was admitted on 10/26/18 for alcohol withdrawal sx management doing well with librium detox regimen seen by psychiatrist resumed effexor and remeron tolerate well Objective: 10/28/18 11:38 Vital Signs Temperature 98.2 F 10/28/18 09:30 Pulse Rate 79 10/28/18 09:30 Respiratory Rate 18 10/28/18 09:30 Blood Pressure 98/63 10/28/18 09:30 O2 Sat by Pulse Oximetry (%) Laboratory Last Values WBC 2.0 K/mm3 (4.0-10.0) L 10/27/18 08:00 RBC 3.90 M/mm3 (4.00-5.60) L 10/27/18 08:00 Hgb 11.3 GM/dL (11.7-16.9) L 10/27/18 08:00 Hct 33.8 % (35.4-49) L D 10/27/18 08:00 MCV 86.6 fl (80-96) 10/27/18 08:00 MCH 29.1 pg (25.7-33.7) 10/27/18 08:00 MCHC 33.6 g/dl (32.0-35.9) 10/27/18 08:00 RDW 14.7 % (11.9-15.9) 10/27/18 08:00 Plt Count 129 K/MM3 (134-434) L 10/27/18 08:00 MPV 9.2 fl (7.5-11.1) D 10/27/18 08:00 Sodium 144 mmol/L (136-145) 10/27/18 08:00 Potassium 2.8 mmol/L (3.5-5.1) L* 10/27/18 08:00 Chloride 107 mmol/L (98-107) 10/27/18 08:00 Carbon Dioxide 33 mmol/L (21-32) H 10/27/18 08:00 Anion Gap 5 MMOL/L (8-16) L 10/27/18 08:00 BUN 6.9 mg/dL (7-18) L 10/27/18 08:00 Creatinine 0.7 mg/dL (0.55-1.3) 10/27/18 08:00 Est GFR (CKD-EPI)AfAm 124.87 10/27/18 08:00 Est GFR (CKD-EPI)NonAf 107.74 10/27/18 08:00 Random Glucose 80 mg/dL (74-106) 10/27/18 08:00 Calcium 9.1 mg/dL (8.5-10.1) 10/27/18 08:00 Total Bilirubin 0.6 mg/dL (0.2-1) 10/27/18 08:00 AST 33 U/L (15-37) 10/27/18 08:00 ALT 34 U/L (13-61) 10/27/18 08:00 Alkaline Phosphatase 241 U/L (45-117) H 10/27/18 08:00 Total Protein 6.9 g/dl (6.4-8.2) 10/27/18 08:00 Albumin 3.2 g/dl (3.4-5.0) L 10/27/18 08:00 RPR Titer Nonreactive (NONREACTIVE) 10/27/18 08:00 lab noted long history of hiv with low wbc low K+ continue K+ supplement 10/28/18 11:46 repeat K+ Assessment: 10/28/18 11:46 alcohol withdrawal sx alert oriented x 3 no coughing no wheezing on trouble urination Plan: continue libirum detox regimen
--- NOTE | 2018-10-28 17:18 | EKG ---
Test Reason : Blood Pressure : / mmHG Vent. Rate : 076 BPM Atrial Rate : 076 BPM P-R Int : 186 ms QRS Dur : 080 ms QT Int : 400 ms P-R-T Axes : 072 076 056 degrees QTc Int : 450 ms NORMAL SINUS RHYTHM POSSIBLE LEFT ATRIAL ENLARGEMENT BORDERLINE ECG WHEN COMPARED WITH ECG OF 01-MAY-2017 17:37, NO SIGNIFICANT CHANGE WAS FOUND Confirmed by ASH JUAN MD ([id number]) on 10/28/2018 5:17:50 PM Referred By: Confirmed By:ASH JUAN MD
[2018-10-28] MEDS: MIRTAZAPINE 15 MG TABLET (FP) PO SCH (22:38)
[2018-10-28] MEDS: THIAMINE HCL 100 MG TABLET (FP) PO SCH (22:38)
[2018-10-28] MEDS: MELATONIN 5 MG TABLETS PO PRN (22:39)
[2018-10-29] MEDS ORDERED: chlordiazePOXIDE HCL 10 MG CAPSULE PO PRN
[2018-10-29] MEDS: chlordiazePOXIDE HCL 10 MG CAPSULE PO SCH ×4 (05:49→22:12)
[2018-10-29] MEDS: GABAPENTIN 300 MG CAPSULE (FP) PO SCH ×3 (05:50→22:12)
[2018-10-29] MEDS: PRENATAL VITAMINS W/ FOLIC ACID TABLET (FP) PO SCH (10:15)
[2018-10-29] MEDS: valACYclovir HCL 500 MG TABLET (FP) PO SCH ×2 (10:16→22:12)
[2018-10-29] MEDS: SULFAMETHOXAZOLE/TRIMETHOPRIM 800MG/160MG D.S. TABLET PO SCH (10:16)
[2018-10-29] MEDS: POTASSIUM CHLORIDE TABS 20 MEQ TABLET.ER (FP) PO SCH ×2 (10:16→17:35)
[2018-10-29] MEDS: NICOTINE 14 MG/24 HOURS TOPICAL PATCH TD SCH (10:17)
[2018-10-29] MEDS: VENLAFAXINE HCL 37.5 MG E.R. CAPSULE (FP) PO SCH (10:17)
[2018-10-29] MEDS: BACITRACIN 15 GM TUBE TOPICAL OINTMENT TP SCH ×2 (10:17→22:12)
--- NOTE | 2018-10-29 14:33 | PN ---
[facility] CIWA - CIWA Score Nausea/Vomitin-No Nausea/No Vomiting Muscle Tremors: 2 Anxiety: 3 Agitation: 2 Paroxysmal Sweats: 1-Minimal Palms Moist Orientation: 0-Oriented Tacttile Disturbances: 0-None Auditory Disturbances: 0-None Visual Disturbances: 0-None Headache: 0-None Present CIWA-Ar Total Score: 8 S Progress Note (SOAP) Subjective: doing well with librium detox regimen less tremor mild body aches little restlessness Objective: 10/29/18 14:33 Vital Signs Temperature 97.6 F 10/29/18 09:07 Pulse Rate 95 H 10/29/18 09:07 Respiratory Rate 20 10/29/18 09:07 Blood Pressure 104/61 10/29/18 09:07 O2 Sat by Pulse Oximetry (%) Laboratory Last Values WBC 2.0 K/mm3 (4.0-10.0) L 10/27/18 08:00 RBC 3.90 M/mm3 (4.00-5.60) L 10/27/18 08:00 Hgb 11.3 GM/dL (11.7-16.9) L 10/27/18 08:00 Hct 33.8 % (35.4-49) L D 10/27/18 08:00 MCV 86.6 fl (80-96) 10/27/18 08:00 MCH 29.1 pg (25.7-33.7) 10/27/18 08:00 MCHC 33.6 g/dl (32.0-35.9) 10/27/18 08:00 RDW 14.7 % (11.9-15.9) 10/27/18 08:00 Plt Count 129 K/MM3 (134-434) L 10/27/18 08:00 MPV 9.2 fl (7.5-11.1) D 10/27/18 08:00 Sodium 144 mmol/L (136-145) 10/27/18 08:00 Potassium 4.0 mmol/L (3.5-5.1) 10/29/18 09:00 Chloride 107 mmol/L (98-107) 10/27/18 08:00 Carbon Dioxide 33 mmol/L (21-32) H 10/27/18 08:00 Anion Gap 5 MMOL/L (8-16) L 10/27/18 08:00 BUN 6.9 mg/dL (7-18) L 10/27/18 08:00 Creatinine 0.7 mg/dL (0.55-1.3) 10/27/18 08:00 Est GFR (CKD-EPI)AfAm 124.87 10/27/18 08:00 Est GFR (CKD-EPI)NonAf 107.74 10/27/18 08:00 Random Glucose 80 mg/dL (74-106) 10/27/18 08:00 Calcium 9.1 mg/dL (8.5-10.1) 10/27/18 08:00 Total Bilirubin 0.6 mg/dL (0.2-1) 10/27/18 08:00 AST 33 U/L (15-37) 10/27/18 08:00 ALT 34 U/L (13-61) 10/27/18 08:00 Alkaline Phosphatase 225 U/L (45-117) H 10/29/18 09:00 Total Protein 6.9 g/dl (6.4-8.2) 10/27/18 08:00 Albumin 3.2 g/dl (3.4-5.0) L 10/27/18 08:00 RPR Titer Nonreactive (NONREACTIVE) 10/27/18 08:00 lab noted hiv with low wbc 10/29/18 14:34 Assessment: 10/29/18 14:34 alcohol withdrawal sx Plan: continue librium detox regimen
[2018-10-29] MEDS: THIAMINE HCL 100 MG TABLET (FP) PO SCH (22:12)
[2018-10-29] MEDS: MIRTAZAPINE 15 MG TABLET (FP) PO SCH (22:12)
[2018-10-30] MEDS: chlordiazePOXIDE HCL 10 MG CAPSULE PO SCH ×2 (05:14→16:56)
[2018-10-30] MEDS: GABAPENTIN 300 MG CAPSULE (FP) PO SCH ×3 (05:14→22:08)
[2018-10-30] MEDS: VENLAFAXINE HCL 37.5 MG E.R. CAPSULE (FP) PO SCH (09:48)
[2018-10-30] MEDS: PRENATAL VITAMINS W/ FOLIC ACID TABLET (FP) PO SCH (09:48)
[2018-10-30] MEDS: POTASSIUM CHLORIDE TABS 20 MEQ TABLET.ER (FP) PO SCH (09:48)
[2018-10-30] MEDS: SULFAMETHOXAZOLE/TRIMETHOPRIM 800MG/160MG D.S. TABLET PO SCH (09:48)
[2018-10-30] MEDS: BACITRACIN 15 GM TUBE TOPICAL OINTMENT TP SCH ×2 (09:48→22:08)
[2018-10-30] MEDS: valACYclovir HCL 500 MG TABLET (FP) PO SCH ×2 (09:48→22:08)
[2018-10-30] MEDS: NICOTINE 14 MG/24 HOURS TOPICAL PATCH TD SCH (09:52)
--- NOTE | 2018-10-30 11:51 | PN ---
S CIWA - CIWA Score Nausea/Vomitin-Mild Nausea/No Vomiting Muscle Tremors: 2 Anxiety: 2 Agitation: 2 Paroxysmal Sweats: 1-Minimal Palms Moist Orientation: 0-Oriented Tacttile Disturbances: 0-None Auditory Disturbances: 0-None Visual Disturbances: 0-None Headache: 1-Very Mild CIWA-Ar Total Score: 9 BHS Progress Note (SOAP) Subjective: alert,irritable,interrupted,anxious Objective: 10/30/18 11:49 Vital Signs Temperature 98.2 F 10/30/18 09:35 Pulse Rate 89 10/30/18 09:35 Respiratory Rate 18 10/30/18 09:35 Blood Pressure 111/70 10/30/18 09:35 O2 Sat by Pulse Oximetry (%) 10/30/18 11:49 Laboratory Results - last 24 hr 10/29/18 10/29/18 09:00 09:00 Potassium 4.0 Alkaline Phosphatase 225 H Assessment: 10/30/18 11:50 withdrawal symptom Plan: continue detox librium regimen,k is 4,will d/c k replacement,discharge in am
[2018-10-30] MEDS: NICOTINE POLACRILEX 2 MG GUM BUC PRN (15:39)
[2018-10-30] MEDS: MIRTAZAPINE 15 MG TABLET (FP) PO SCH (22:08)
[2018-10-30] MEDS: MELATONIN 5 MG TABLETS PO PRN (22:08)
[2018-10-30] MEDS: THIAMINE HCL 100 MG TABLET (FP) PO SCH (22:08)
[2018-10-31] MEDS ORDERED: chlordiazePOXIDE HCL 10 MG CAPSULE PO ONE (05:00)
[2018-10-31] MEDS: GABAPENTIN 300 MG CAPSULE (FP) PO SCH (05:10)
[2018-10-31 09:14] VITALS: BP 114/80; PULSE 90; TEMP 96.8
[2018-10-31] MEDS: PRENATAL VITAMINS W/ FOLIC ACID TABLET (FP) PO SCH (10:15)
[2018-10-31] MEDS: SULFAMETHOXAZOLE/TRIMETHOPRIM 800MG/160MG D.S. TABLET PO SCH (10:15)
[2018-10-31] MEDS: valACYclovir HCL 500 MG TABLET (FP) PO SCH (10:15)
[2018-10-31] MEDS: VENLAFAXINE HCL 37.5 MG E.R. CAPSULE (FP) PO SCH (10:15)
[2018-10-31] MEDS: BACITRACIN 15 GM TUBE TOPICAL OINTMENT TP SCH (10:16)
[2018-10-31] MEDS: NICOTINE 14 MG/24 HOURS TOPICAL PATCH TD SCH (10:16)
[2018-10-31] MEDS: NICOTINE POLACRILEX 2 MG GUM BUC PRN (10:17)
--- NOTE | 2018-10-31 15:21 | DS ---
[facility] Detox Discharge Summary Admission Date: 10/26/18 Discharge Date: 10/31/18 - History Present History: Alcohol Dependence Additional Comments: 52 years old admitted on 10/26/18 for alcohol withdrawal sx management did well with librium detox regimen no complication through out the detox stay seen by psychiatrist treated wtih effexor and remeron tolerate well alert oriented x 3 cardiac S1S2 regular rate rhythm respiratory clear lung bilaterally on auscultation abdomen soft 52 years old underweight male Pertinent Past History: hiv asthma - Physical Exam Results Vital Signs: Vital Signs Temperature 96.8 F L 10/31/18 09:12 Pulse Rate 90 10/31/18 09:12 Respiratory Rate 20 10/31/18 09:12 Blood Pressure 114/80 10/31/18 09:12 O2 Sat by Pulse Oximetry (%) Pertinent Admission Physical Exam Findings: alcohol withdrawal sx Laboratory Last Values WBC 2.0 K/mm3 (4.0-10.0) L 10/27/18 08:00 RBC 3.90 M/mm3 (4.00-5.60) L 10/27/18 08:00 Hgb 11.3 GM/dL (11.7-16.9) L 10/27/18 08:00 Hct 33.8 % (35.4-49) L D 10/27/18 08:00 MCV 86.6 fl (80-96) 10/27/18 08:00 MCH 29.1 pg (25.7-33.7) 10/27/18 08:00 MCHC 33.6 g/dl (32.0-35.9) 10/27/18 08:00 RDW 14.7 % (11.9-15.9) 10/27/18 08:00 Plt Count 129 K/MM3 (134-434) L 10/27/18 08:00 MPV 9.2 fl (7.5-11.1) D 10/27/18 08:00 Sodium 144 mmol/L (136-145) 10/27/18 08:00 Potassium 4.0 mmol/L (3.5-5.1) 10/29/18 09:00 Chloride 107 mmol/L (98-107) 10/27/18 08:00 Carbon Dioxide 33 mmol/L (21-32) H 10/27/18 08:00 Anion Gap 5 MMOL/L (8-16) L 10/27/18 08:00 BUN 6.9 mg/dL (7-18) L 10/27/18 08:00 Creatinine 0.7 mg/dL (0.55-1.3) 10/27/18 08:00 Est GFR (CKD-EPI)AfAm 124.87 10/27/18 08:00 Est GFR (CKD-EPI)NonAf 107.74 10/27/18 08:00 Random Glucose 80 mg/dL (74-106) 10/27/18 08:00 Calcium 9.1 mg/dL (8.5-10.1) 10/27/18 08:00 Total Bilirubin 0.6 mg/dL (0.2-1) 10/27/18 08:00 AST 33 U/L (15-37) 10/27/18 08:00 ALT 34 U/L (13-61) 10/27/18 08:00 Alkaline Phosphatase 225 U/L (45-117) H 10/29/18 09:00 Total Protein 6.9 g/dl (6.4-8.2) 10/27/18 08:00 Albumin 3.2 g/dl (3.4-5.0) L 10/27/18 08:00 RPR Titer Nonreactive (NONREACTIVE) 10/27/18 08:00 lab noted long history of hiv bring in lab report to [facility] for follow up - Treatment Hospital Course: Detox Protocol Followed, Detoxed Safely, Responded well, Discharged Condition Good, Rehab Referral Accepted Patient has Accepted a Rehab Referral to: [facility] - Medication Discharge Medications: Ambulatory Orders Mirtazapine [Remeron -] 45 mg PO HS #30 tab 07/11/16 Gabapentin [Neurontin] 300 mg PO TID #90 capsule 02/28/17 Valacyclovir HCl [Valtrex -] 500 mg PO BID #60 tablet 02/28/17 Venlafaxine HCl ER [Effexor Xr -] 37.5 mg PO DAILY #30 cap.er.24h 03/08/17 hydrOXYzine PAMOATE [Vistaril -] 50 mg PO BID 05/01/17 Albuterol Sulfate Inhaler - [Ventolin HFA Inhaler -] 2 puff IH Q4H PRN #1 inhaler 05/05/17 Elviteg/Cob/Emtri/Tenof Alafen [Genvoya (Non-Formulary)] 1 each PO DAILY #30 tablet 05/05/17 Sulfamethoxazole/Trimethoprim [Bactrim Ds Tablet] 1 tablet PO DAILY #30 tablet 05/05/17 Valacyclovir HCl [Valtrex -] 500 mg PO BID #30 tablet 05/05/17 Imiquimod 1 applic TP HS 10/26/18 - Diagnosis (1) AIDS (acquired immune deficiency syndrome) Status: Chronic (2) Alcohol dependence with uncomplicated withdrawal Status: Acute (3) Weight decreased Status: Acute (4) Nicotine dependence Status: Acute Qualifiers: Nicotine product type: cigarettes Substance use status: in withdrawal Qualified Code(s): F17.213 - Nicotine dependence, cigarettes, with withdrawal (5) Substance induced mood disorder Status: Suspected - AMA Did Patient Leave Against Medical Advice: No CIWA Score - CIWA Score Nausea/Vomitin-No Nausea/No Vomiting Muscle Tremors: 1-None Visible, but [place] Anxiety: 1-Mildly Anxious Agitation: 1-Slight > Activity Paroxysmal Sweats: 1-Minimal Palms Moist Orientation: 0-Oriented Tacttile Disturbances: 0-None Auditory Disturbances: 0-None Visual Disturbances: 0-None Headache: 1-Very Mild CIWA-Ar Total Score: 5
== END 2018-10-31 11:10 | disposition home or self-care (01) | DRG 897 ==
LOC: YASAS 14:14 → Y3N 21:04
PROVIDERS: ADMIT Surgery; ATTEND Surgery
PROC: HZ2ZZZZ Detoxification Services for Substance Abuse Treatment (ICD-10-PCS; principal; 2018-10-26)
DX: F10.230 Alcohol dependence with withdrawal, uncomplicated (principal); F14.20 Cocaine dependence, uncomplicated; D61.818 Other pancytopenia; F12.20 Cannabis dependence, uncomplicated; F17.213 Nicotine dependence, cigarettes, with withdrawal; F19.24 Other psychoactive substance dependence with psychoactive substance-induced mood disorder; F32.9 Major depressive disorder, single episode, unspecified; F41.9 Anxiety disorder, unspecified; Z21 Asymptomatic human immunodeficiency virus [HIV] infection status; R63.4 Abnormal weight loss; E87.6 Hypokalemia; R74.8 Abnormal levels of other serum enzymes; G47.00 Insomnia, unspecified; G62.9 Polyneuropathy, unspecified; Z87.438 Personal history of other diseases of male genital organs
CPT/HCPCS: 36415; 80053; 84075; 84132; 85027; 86480; 86593; 93005; 93010

== ENCOUNTER 2019-11-21 14:03 | Inpatient (IN) | payer OTHER ==
--- NOTE | 2019-11-21 14:24 | BHS.RME ---
Substance Use & Tx History - Substance Use History Alcohol Substance amount: 1 pint vodka Frequency of use: Daily Substance route: Oral Date of Last Use: 11/21/19 (started age 17) Cocaine-Crack Substance amount: $20 Frequency of use: Less than 3 times per week Substance route: Smoking Date of Last Use: 11/21/19 (started age 17) Physical/Psych/Mental Status - Behavior General Behavior: Increased activity (restlessness, agitation) Eye Contact: Normal - Cooperativeness Cooperativeness: Cooperative - Thinking Thought Processes: Tight, Logical, Goal Directed - Physical Health Problems Is patient presently having any pain?: No Does patient presently have any injuries (include location): No Does patient currently have a fever: No Is patient : No CIWA Nausea/Vomitin Muscle Tremors: 2 Anxiety: 3 Agitation: 3 Paroxysmal Sweats: 4-Forehead w/Sweat Beads Orientation: 1-Uncertain about Date Tacttile Disturbances: 0-None Auditory Disturbances: 0-None Visual Disturbances: 0-None Headache: 0-None Present CIWA-Ar Total Score: 15
--- NOTE | 2019-11-21 14:44 | HP ---
CIWA Score Nausea/Vomitin Muscle Tremors: 2 Anxiety: 3 Agitation: 3 Paroxysmal Sweats: 4-Forehead w/Sweat Beads Orientation: 1-Uncertain about Date Tacttile Disturbances: 0-None Auditory Disturbances: 0-None Visual Disturbances: 0-None Headache: 0-None Present CIWA-Ar Total Score: 15 - Admission Criteria OASAS Guidelines: Admission for Medically Managed Detox: Requires at least one of the followin. CIWA greater than 12 2. Seizures within the past 24 hours 3. Delirium tremens within the past 24 hours 4. Hallucinations within the past 24 hours 5. Acute intervention needed for co occurring medical disorder 6. Acute intervention needed for co occurring psychiatric disorder 7. Severe withdrawal that cannot be handled at a lower level of care (continued vomiting, continued diarrhea, abnormal vital signs) requiring intravenous medication and/or fluids 8. Admitting History and Physical - Admission Chief Complaint: Mr. Deras is a 53 yo gentleman who presents to [facility] requesting detox admission for alcohol use disorder. History of Present Illness: Mr. Deras is a 53 yo gentleman who presents to [facility] requesting detox admission for alcohol use disorder. He was last here in October of 2018 when he completed detox. He states he was abstinent for about 4 mos post discharge and then relapsed. PMH: HIV on Biktarvy PSH: none Psych: depression SOC: homeless on the streets Legal: none - Substance Use History Alcohol Substance amount: 1 pint vodka Frequency of use: Daily Substance route: Oral Date of Last Use: 11/21/19 (started age 17) No seizures. Had a blackout about 2 mos ago Admits to an eyeopener Cocaine-Crack Substance amount: $20 Frequency of use: Less than 3 times per week Substance route: Smoking Date of Last Use: 11/21/19 (started age 17) Nicotine: 5 cigs per day, began age 17y No Methadone or Suboxone program History Source: Patient Limitations to Obtaining History: No Limitations - Smoking History Smoking history: Current every day smoker Have you smoked in the past 12 months: Yes Aproximately how many cigarettes per day: 10 - Alcohol/Substance Use Hx Alcohol Use: Yes Admission ROS S - HPI Allergies/Adverse Reactions: Allergies Allergy/AdvReac Type Severity Reaction Status Date / Time No Known Allergies Allergy Verified 09/06/19 18:58 Exam Limitations: No Limitations - Ebola screening Have you traveled outside of the country in the last 21 days: No Have you been sick,other than usual withdrawal symptoms: No Do you have a fever: No - Review of Systems Constitutional: Changes in sleep (trouble falling asleep), Unintentional Wgt. Loss (lost 15 lbs in past 6 mos) EENT: reports: Blurred Vision (glasses for distance, with him today) Respiratory: reports: No Symptoms reported Cardiac: reports: No Symptoms Reported GI: reports: Nausea : reports: No Symptoms Reported Musculoskeletal: reports: Back Pain (lumbar disc disease, on Neurontin) Integumentary: reports: No Symptoms Reported Neuro: reports: No Symptoms reported Endocrine: reports: No Symptoms Reported Hematology: reports: No Symptoms Reported Psychiatric: reports: Anxious, Depressed (no SI) Patient History - Patient Medical History Hx Anemia: No Hx Asthma: Yes (Albuterol) Hx Chronic Obstructive Pulmonary Disease (COPD): No Hx Cancer: No Hx Cardiac Disorders: No Hx Congestive Heart Failure: No Hx Hypertension: No Hx Hypercholesterolemia: No Hx Pacemaker: No HX Cerebrovascular Accident: No Hx Seizures: No Hx Dementia: No Hx Diabetes: No Hx Gastrointestinal Disorders: No Hx Liver Disease: No Hx Genitourinary Disorders: No Hx Sexually Transmitted Disorders: Yes (Genital herpes) Hx Renal Disease (ESRD): No Hx Thyroid Disease: No Hx Human Immunodeficiency Virus (HIV): Yes (POSITIVE SINCE 1997-CHANGE TO GENVOYA(PT DID NOT BRING MED)) Hx Hepatitis C: No (Last Tested: 01/2017: NEGATIVE.) Hx Depression: Yes (Effexor) Hx Suicide Attempt: No (Denies suicidal ideation at this time) Hx Bipolar Disorder: No Hx Schizophrenia: No - Patient Surgical History Past Surgical History: No Hx Neurologic Surgery: No Hx Cataract Extraction: No Hx Cardiac Surgery: No Hx Lung Surgery: No Hx Breast Surgery: No Hx Breast Biopsy: No Hx Abdominal Surgery: No Hx Appendectomy: No Hx Cholecystectomy: No Hx Genitourinary Surgery: No Hx Section: No Hx Orthopedic Surgery: No Hx Hysterectomy: No Anesthesia Reaction: No - PPD History Date: 06/23/16 Results: 0 mm - Smoking Cessation Smoking history: Current every day smoker Have you smoked in the past 12 months: Yes Aproximately how many cigarettes per day: 5 Cigars Per Day: 0 Hx Chewing Tobacco Use: No Initiated information on smoking cessation: Yes 'Breaking Loose' booklet given: 11/21/19 Admission Physical Exam [facility] - Vital Signs Vital Signs: BP 98/69, HR 85, RR 11, temp 97.3 EMILY 0.087 - Physical General Appearance: Yes: No Apparent Distress, Intoxicated, Thin HEENTM: Yes: EOMI, Hearing grossly Normal, Normocephalic, Normal Voice Respiratory: Yes: Lungs Clear, No Respiratory Distress, No Accessory Muscle Use Neck: Yes: Within Normal Limits Breast: Yes: Breast Exam Deferred Cardiology: Yes: Regular Rhythm, Regular Rate Abdominal: Yes: Normal Bowel Sounds, Non Tender, Flat, Soft Back: Yes: Normal Inspection Musculoskeletal: Yes: Other (mildly unsteady) Extremities: Yes: Normal Inspection, Non-Tender Neurological: Yes: Normal Mood/Affect, Normal Response Integumentary: Yes: Within Normal Limits - Diagnostic (1) Alcohol dependence with uncomplicated withdrawal Current Visit: No Status: Acute (2) Nicotine dependence Current Visit: No Status: Acute Qualifiers: Nicotine product type: cigarettes Substance use status: in withdrawal Qualified Code(s): F17.213 - Nicotine dependence, cigarettes, with withdrawal (3) Cocaine dependence Current Visit: No Status: Chronic Qualifiers: Substance use status: uncomplicated Qualified Code(s): F14.20 - Cocaine dependence, uncomplicated (4) Human immunodeficiency virus infection Current Visit: No Status: Chronic Cleared for Admission [facility] - Detox or Rehab [facility] Level of Care: Medically Managed Detox Regimen/Protocol: Ativan Breathalyzer - Breathalyzer Breathalyzer: 0.087 Urine Drug Screen - Test Device Lot number: [id number] Expiration date: 07/20/20 - Control Is test valid?: Yes - Results Drug screen NEGATIVE: No Urine drug screen results: THC-Marijuana, NUBIA-Cocaine Inpatient Rehab Admission - Rehab Decision to Admit Inpatient rehab admission?: No
[2019-11-21] MEDS ORDERED: ALBUTEROL SO4 HFA INHALER IH PRN (14:55)
[2019-11-21] MEDS ORDERED: NICOTINE POLACRILEX 2 MG GUM BUC PRN (15:01)
[2019-11-21] MEDS ORDERED: MAG HYDROX/AL HYDROX/SIMETH 30 ML UNIT-DOSE CUP PO PRN (15:01)
[2019-11-21] MEDS ORDERED: IBUPROFEN 400 MG TABLET (FP) PO PRN (15:01)
[2019-11-21] MEDS ORDERED: ONDANSETRON *ODT* 4 MG TABLET SL PRN (15:01)
[2019-11-21] MEDS ORDERED: MAGNESIUM HYDROX 2400MG/30ML ORAL SUSPENSION 30 ML CUP PO PRN (15:01)
[2019-11-21] MEDS ORDERED: LORazepam 1 MG TABLET PO PRN (15:01)
[2019-11-21] MEDS ORDERED: METHOCARBAMOL 500 MG TABLET PO PRN (15:01)
[2019-11-21] MEDS ORDERED: MENTHOL/PHENOL 1 EACH UD MM PRN (15:01)
[2019-11-21] MEDS ORDERED: BISMUTH SUBSALICYLATE 524 MG/30 ML UD PO PRN (15:01)
[2019-11-21] MEDS ORDERED: MAGNESIUM CITRATE 300 ML BOTTLE PO PRN (15:01)
[2019-11-21] MEDS ORDERED: ACETAMINOPHEN 325 MG TABLET (FP) PO PRN ×2 (15:01)
[2019-11-21 15:44] VITALS: BMI 19.8
[2019-11-21] MEDS: GABAPENTIN 300 MG CAPSULE PO SCH ×2 (17:21→22:10)
[2019-11-21] MEDS: hydrOXYzine PAMOATE 25 MG CAPSULE (FP) PO SCH ×2 (17:21→22:10)
[2019-11-21] MEDS: LORazepam 2 MG TABLET PO SCH ×2 (17:21→22:10)
[2019-11-21 17:43] LABS: BILIRUBIN,TOTAL 0.9 mg/dL (0.2-1); BLOOD UREA NITROGEN 8.3 mg/dL (7-18); CALCIUM 8.3 mg/dL (8.5-10.1); CREATININE 0.8 mg/dL (0.55-1.3); TOT PROT 8.1 g/dl (6.4-8.2)
[2019-11-21 17:47] LABS: HEMATOCRIT 36.8 % (35.4-49); HEMOGLOBIN 12.8 GM/dL (11.7-16.9); MCH 30.1 pg (25.7-33.7); MCHC 34.8 g/dl (32.0-35.9); MEAN CELL VOLUME 86.6 fl (80-96); MEAN PLT VOLUME 9.4 fl (7.5-11.1); PLATELET COUNT 115 K/MM3 (134-434); RBC 4.25 M/mm3 (4.00-5.60); RDW 14.2 % (11.9-15.9); WHITE BLOOD COUNT 5.9 K/mm3 (4.0-10.0)
[2019-11-21 17:54] LABS: POTASSIUM 2.7 mmol/L (3.5-5.1)
[2019-11-21] MEDS ORDERED: POTASSIUM CHLORIDE ORAL LIQUID 20 MEQ/15 ML PO ONE (18:12)
--- NOTE | 2019-11-21 18:16 | PN ---
S Progress Note Note: Critical value of K=2.7 May be due to prolonged stay prior to processing. But will treat with one dose of potassium 40 Meq and repeat potassium tomorrow. Dr. Cerna
[2019-11-21] MEDS: valACYclovir HCL 500 MG TABLET (FP) PO SCH (22:10)
[2019-11-21] MEDS: THIAMINE HCL 100 MG TABLET (FP) PO SCH (22:10)
[2019-11-21] MEDS: MELATONIN 5 MG TABLETS PO SCH (22:43)
[2019-11-22] MEDS: hydrOXYzine PAMOATE 25 MG CAPSULE (FP) PO SCH (06:43)
[2019-11-22] MEDS: GABAPENTIN 300 MG CAPSULE PO SCH ×3 (06:43→22:39)
[2019-11-22] MEDS: LORazepam 2 MG TABLET PO SCH ×4 (06:43→22:39)
[2019-11-22] MEDS: NICOTINE 7 MG/24 HOURS TOPICAL PATCH TD SCH (10:22)
[2019-11-22] MEDS: PRENATAL VITAMINS W/ FOLIC ACID TABLET (FP) PO SCH (10:22)
[2019-11-22] MEDS: valACYclovir HCL 500 MG TABLET (FP) PO SCH ×2 (10:23→22:39)
--- NOTE | 2019-11-22 10:44 | CONSULT ---
[facility] Psychiatric Consult - Data Date of interview: 11/22/19 Admission source: Self-referred Identifying data: Mr Deras is a 53 years old single Black male, unemployed receiving SSD, living in an SRO seeking detox treatment for alcohol, cocaine and cannabis Substance Abuse History: Reports history of alcohol, crack cocaine and marijuana use. refer to addiction counselor's summary for further information Medical History: Significant for peripheral neuraopathy, HIV infection since 1994 (on ART medications), anemia, bronchial asthma and history of herpes genitalis. Smokes 5 cigarettes daily Psychiatric History: Patient is known for multiple previous admissions to this facility. According to record, he was diagnosed with MDD, Anxiety Disorder and Seasonal Affective Disorder at age 7. Reportely he has had multiple previous psychiatric hospitalizations at [facility] and [facility]. Reports that he nolonger sees Dr Greer Chery at [facility]. 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 Denies previous suicide attempts. At present, denies experiencing depressive symptoms, S/H idetions. However, reports sleeping poorly Physical/Sexual Abuse/Trauma History: No reported history of abuse or domestic violence Mental Status Exam - Mental Status Exam Alert and Oriented to: Time, Place, Person Cognitive Function: Fair Patient Appearance: Disheveled Mood: Hopeful, Euthymic Affect: Appropriate Patient Behavior: Cooperative Speech Pattern: Clear Voice Loudness: Normal Thought Process: Intact, Goal Oriented Thought Disorder: Not Present Hallucinations: Denies Suicidal Ideation: Denies Homicidal Ideation: Denies Insight/Judgement: Poor Sleep: Poorly Appetite: Poor Muscle strength/Tone: Normal Gait/Station: Normal Psychiatric Findings - Problem List ([place] 1, 2,3) (1) MDD (major depressive disorder) Current Visit: No Status: Chronic Comment: By history. (2) Substance-induced sleep disorder Current Visit: Yes Status: Acute (3) Alcohol dependence with uncomplicated withdrawal Current Visit: No Status: Acute (4) Cannabis dependence, uncomplicated Current Visit: No Status: Acute (5) Cocaine dependence Current Visit: No Status: Acute Qualifiers: Substance use status: uncomplicated Qualified Code(s): F14.20 - Cocaine dependence, uncomplicated (6) Nicotine dependence Current Visit: No Status: Chronic Qualifiers: Nicotine product type: cigarettes Substance use status: in withdrawal Qualified Code(s): F17.213 - Nicotine dependence, cigarettes, with withdrawal (7) AIDS (acquired immune deficiency syndrome) Current Visit: No Status: Chronic (8) Asthma Current Visit: No Status: Chronic Qualifiers: Asthma severity: mild Asthma persistence: intermittent Asthma complication type: uncomplicated Qualified Code(s): J45.20 - Mild intermittent asthma, uncomplicated (9) Peripheral neuropathic pain Current Visit: No Status: Chronic - Initial Treatment Plan Initial Treatment Plan: 1) Continue Effexor XR 37 mg po daily and Remeron 45 mg po HS. 2) Start Vistaril 50 mg po Q 4hrs prn for anxiety. 3) Continue inpatient detoxification
[2019-11-22] MEDS ORDERED: hydrOXYzine PAMOATE 50 MG CAPSULE (FP) PO PRN (11:14)
[2019-11-22] MEDS ORDERED: POTASSIUM CHLORIDE ORAL LIQUID 20 MEQ/15 ML PO ONE (11:21)
--- NOTE | 2019-11-22 11:32 | PN ---
[facility] CIWA - CIWA Score Nausea/Vomitin-Mild Nausea/No Vomiting Muscle Tremors: 2 Anxiety: 2 Agitation: 2 Paroxysmal Sweats: No Perspiration Orientation: 0-Oriented Tacttile Disturbances: 1-Very Mild Itch/Numbness Auditory Disturbances: 0-None Visual Disturbances: 0-None Headache: 2-Mild CIWA-Ar Total Score: 10 S Progress Note (SOAP) Subjective: alert,anxious,interrupted sleep,aching pain in the body,back,nausea,feel weak Objective: 11/22/19 11:29 Vital Signs Temperature 97.3 F L 11/22/19 08:45 Pulse Rate 84 11/22/19 08:45 Respiratory Rate 16 11/22/19 08:45 Blood Pressure 108/66 11/22/19 08:45 O2 Sat by Pulse Oximetry (%) 98 11/22/19 08:45 Laboratory Last Values WBC 5.9 K/mm3 (4.0-10.0) 11/21/19 15:30 RBC 4.25 M/mm3 (4.00-5.60) 11/21/19 15:30 Hgb 12.8 GM/dL (11.7-16.9) 11/21/19 15:30 Hct 36.8 % (35.4-49) 11/21/19 15:30 MCV 86.6 fl (80-96) 11/21/19 15:30 MCH 30.1 pg (25.7-33.7) 11/21/19 15:30 MCHC 34.8 g/dl (32.0-35.9) 11/21/19 15:30 RDW 14.2 % (11.9-15.9) 11/21/19 15:30 Plt Count 115 K/MM3 (134-434) L 11/21/19 15:30 MPV 9.4 fl (7.5-11.1) 11/21/19 15:30 Sodium 142 mmol/L (136-145) 11/21/19 15:30 Potassium 2.7 mmol/L (3.5-5.1) L* 11/21/19 15:30 Chloride 107 mmol/L (98-107) 11/21/19 15:30 Carbon Dioxide 27 mmol/L (21-32) 11/21/19 15:30 Anion Gap 9 MMOL/L (8-16) 11/21/19 15:30 BUN 8.3 mg/dL (7-18) 11/21/19 15:30 Creatinine 0.8 mg/dL (0.55-1.3) 11/21/19 15:30 Est GFR (CKD-EPI)AfAm 117.38 11/21/19 15:30 Est GFR (CKD-EPI)NonAf 101.27 11/21/19 15:30 Random Glucose 80 mg/dL (74-106) 11/21/19 15:30 Calcium 8.3 mg/dL (8.5-10.1) L 11/21/19 15:30 Total Bilirubin 0.9 mg/dL (0.2-1) 11/21/19 15:30 AST 55 U/L (15-37) H 11/21/19 15:30 ALT 31 U/L (13-61) 11/21/19 15:30 Alkaline Phosphatase 68 U/L (45-117) 11/21/19 15:30 Total Protein 8.1 g/dl (6.4-8.2) 11/21/19 15:30 Albumin 4.0 g/dl (3.4-5.0) 11/21/19 15:30 Syphilis Serology Non-reactive (NONREACTIVE) 11/21/19 15:30 Assessment: 11/22/19 11:30 withdrawal symptom Plan: continue detox ativan regimen,receiving kcl 40 meq po yesterday,kcl 40 meq liquid po today,repeat potassium pending, nutritional support ,unable to verify Biktavay medication at this time close monitoring
[2019-11-22] MEDS ORDERED: FLU VACCINE (FLULAVAL) PF 60 MCG/0.5 ML SYRINGE 2020-2021 IM ONE (12:00)
[2019-11-22] MEDS: VENLAFAXINE HCL 37.5 MG E.R. CAPSULE PO SCH (13:22)
[2019-11-22] MEDS ORDERED: MIRTAZAPINE 15 MG TABLET (FP) PO SCH (22:00)
[2019-11-22] MEDS: MELATONIN 5 MG TABLETS PO SCH (22:38)
[2019-11-22] MEDS: THIAMINE HCL 100 MG TABLET (FP) PO SCH (22:39)
[2019-11-23] MEDS: LORazepam 1 MG TABLET PO SCH ×2 (05:40→10:43)
[2019-11-23] MEDS: GABAPENTIN 300 MG CAPSULE PO SCH ×2 (05:40→13:59)
[2019-11-23] MEDS ORDERED: POTASSIUM CHLORIDE TABS 20 MEQ TABLET.ER (FP) PO SCH (10:30)
[2019-11-23] MEDS: VENLAFAXINE HCL 37.5 MG E.R. CAPSULE PO SCH (10:43)
[2019-11-23] MEDS: NICOTINE 7 MG/24 HOURS TOPICAL PATCH TD SCH (10:43)
[2019-11-23] MEDS: valACYclovir HCL 500 MG TABLET (FP) PO SCH (10:43)
[2019-11-23] MEDS: PRENATAL VITAMINS W/ FOLIC ACID TABLET (FP) PO SCH (10:44)
[2019-11-23 13:18] VITALS: BP 125/82; PULSE 75; TEMP 97.8
--- NOTE | 2019-11-23 14:58 | DS ---
[facility] Detox Discharge Summary Admission Date: 11/21/19 Discharge Date: 11/23/19 - History Present History: Alcohol Dependence, Cannabis Dependence, Cocaine Dependence Additional Comments: Despite efforts by [employer]PERATOR HELPER and by Nursing and Counseling Staff to address Patient's medical needs / concerns, Patient does not wish to remain to complete detox regimen. Risks of leaving Detox Unit against medical advice and prior to completion of Detox Regimen explained to Patient. Patient advised to go immediately to nearest ER should any intolerable withdrawal / detox symptoms develop at any time. Follow-Up Prescription for K-Dur (started for Patient while he was admitted on Detox Unit for low K level noted on Detox Admission and repeat laboratory assessments) sent to [facility] ([place], [place]). Patient advised to belt picker prescription as soon as possible and to complete full course of medication as prescribed and to follow-up with Primary Care Medical Provider for further evaluation of low K level noted on Detox Admission laboratory assessment. Patient verbalized understanding of all information / recommendations presented to him prior to departure from detox unit. Copies of results of all labs drawn while admitted for detox given to patient at time of discharge from detox unit. Pertinent Past History: Asthma, Major Depressive Disorder, HIV, Nicotine Dependence, Peripheral Neuropathic Pain. - Physical Exam Results Vital Signs: Vital Signs Temperature 97.8 F 11/23/19 12:58 Pulse Rate 75 11/23/19 12:58 Respiratory Rate 18 11/23/19 12:58 Blood Pressure 125/82 11/23/19 12:58 O2 Sat by Pulse Oximetry (%) 99 11/23/19 12:58 Pertinent Admission Physical Exam Findings: WITHDRAWAL SYMPTOMS. Laboratory Tests 11/21/19 11/21/19 11/21/19 15:30 15:30 15:30 WBC 5.9 RBC 4.25 Hgb 12.8 Hct 36.8 MCV 86.6 MCH 30.1 MCHC 34.8 RDW 14.2 Plt Count 115 L MPV 9.4 Sodium 142 Potassium 2.7 L* Chloride 107 Carbon Dioxide 27 Anion Gap 9 BUN 8.3 Creatinine 0.8 Est GFR (CKD-EPI)AfAm 117.38 Est GFR (CKD-EPI)NonAf 101.27 Random Glucose 80 Calcium 8.3 L Total Bilirubin 0.9 AST 55 H ALT 31 Alkaline Phosphatase 68 Total Protein 8.1 Albumin 4.0 Syphilis Serology Non-reactive COVID-19 ([facility]) 11/21/19 11/22/19 16:00 10:00 WBC RBC Hgb Hct MCV MCH MCHC RDW Plt Count MPV Sodium Potassium 3.2 L Chloride Carbon Dioxide Anion Gap BUN Creatinine Est GFR (CKD-EPI)AfAm Est GFR (CKD-EPI)NonAf Random Glucose Calcium Total Bilirubin AST ALT Alkaline Phosphatase Total Protein Albumin Syphilis Serology COVID-19 ([facility]) Not detected Lab Results noted. - Medication Discharge Medications: Ambulatory Orders Mirtazapine [Remeron -] 45 mg PO HS #30 tab 07/11/16 Gabapentin [Neurontin] 300 mg PO TID #90 capsule 02/28/17 Venlafaxine HCl ER [Effexor Xr -] 37.5 mg PO DAILY #30 cap.er.24h 03/08/17 hydrOXYzine PAMOATE [Vistaril -] 50 mg PO BID 05/01/17 Albuterol Sulfate Inhaler - [Ventolin HFA Inhaler -] 2 puff IH Q4H PRN #1 inhaler 05/05/17 Sulfamethoxazole/Trimethoprim [Bactrim Ds Tablet] 1 tablet PO DAILY #30 tablet 05/05/17 Valacyclovir HCl [Valtrex -] 500 mg PO BID #30 tablet 05/05/17 Bictegrav/Emtricit/Tenofov Ala [Biktarvy 50-200-25 mg Tablet] 1 each PO DAILY 11/21/19 Potassium Chloride 20 meq PO BID 2 Days #4 tablet.er 11/23/19 - Diagnosis (1) Alcohol dependence with uncomplicated withdrawal Current Visit: Yes Status: Acute (2) Cannabis dependence, uncomplicated Current Visit: Yes Status: Acute (3) Hypokalemia Current Visit: Yes Status: Acute (4) Asthma Current Visit: Yes Status: Chronic Qualifiers: Asthma severity: mild Asthma persistence: intermittent Asthma complication type: uncomplicated Qualified Code(s): J45.20 - Mild intermittent asthma, uncomplicated (5) Substance-induced sleep disorder Current Visit: Yes Status: Acute (6) Cocaine dependence, uncomplicated Current Visit: Yes Status: Chronic (7) MDD (major depressive disorder) Current Visit: Yes Status: Chronic Qualifiers: Major depression recurrence: unspecified whether recurrent Active/Remission status: remission status unspecified Qualified Code(s): F32.9 - Major depressive disorder, single episode, unspecified (8) Nicotine dependence Current Visit: Yes Status: Chronic Qualifiers: Nicotine product type: cigarettes Substance use status: in withdrawal Qualified Code(s): F17.213 - Nicotine dependence, cigarettes, with withdrawal (9) Peripheral neuropathic pain Current Visit: Yes Status: Chronic (10) AIDS (acquired immune deficiency syndrome) Current Visit: Yes Status: Chronic - AMA Did Patient Leave Against Medical Advice: Yes (Patient did not wish to reamin to complete Detox Regimen.)
[2019-11-24] MEDS ORDERED: LORazepam 0.5 MG TABLET PO PRN
[2019-11-24] MEDS ORDERED: LORazepam 0.5 MG TABLET PO SCH (05:00)
[2019-11-25] MEDS ORDERED: LORazepam 0.5 MG TABLET PO ONE (05:00)
== END 2019-11-23 15:12 | disposition left against medical advice (07) | DRG 894 ==
LOC: YASAS 14:03 → Y6N 15:46
PROVIDERS: ADMIT Allergy & Immunology; ATTEND Allergy & Immunology
PROC: HZ2ZZZZ Detoxification Services for Substance Abuse Treatment (ICD-10-PCS; principal; 2019-11-21)
DX: F10.230 Alcohol dependence with withdrawal, uncomplicated (principal); F14.20 Cocaine dependence, uncomplicated; F19.282 Other psychoactive substance dependence with psychoactive substance-induced sleep disorder; B20 Human immunodeficiency virus [HIV] disease; F12.20 Cannabis dependence, uncomplicated; F17.210 Nicotine dependence, cigarettes, uncomplicated; F32.9 Major depressive disorder, single episode, unspecified; D64.9 Anemia, unspecified; J45.20 Mild intermittent asthma, uncomplicated; E87.6 Hypokalemia; G62.9 Polyneuropathy, unspecified; Z87.438 Personal history of other diseases of male genital organs
CPT/HCPCS: 36415; 80053; 84132; 85027; 86780; Q2036; U0003

== ENCOUNTER 2020-01-28 12:44 | Inpatient (IN) | payer OTHER ==
[2020-01-28] MEDS ORDERED: MAG HYDROX/AL HYDROX/SIMETH 30 ML UNIT-DOSE CUP PO PRN (14:58)
[2020-01-28] MEDS ORDERED: MAGNESIUM CITRATE 300 ML BOTTLE PO PRN (14:58)
[2020-01-28] MEDS ORDERED: chlordiazePOXIDE HCL 25 MG CAPSULE PO PRN (14:58)
[2020-01-28] MEDS ORDERED: MENTHOL/PHENOL 1 EACH UD MM PRN (14:58)
[2020-01-28] MEDS ORDERED: MAGNESIUM HYDROX 2400MG/30ML ORAL SUSPENSION 30 ML CUP PO PRN (14:58)
[2020-01-28] MEDS ORDERED: BISMUTH SUBSALICYLATE 262 MG/15 ML BTL PO PRN (14:58)
[2020-01-28] MEDS ORDERED: ONDANSETRON *ODT* 4 MG TABLET SL PRN (14:58)
[2020-01-28] MEDS ORDERED: IBUPROFEN 400 MG TABLET (FP) PO PRN (14:58)
[2020-01-28] MEDS ORDERED: ACETAMINOPHEN 325 MG TABLET (FP) PO PRN ×2 (14:58)
[2020-01-28] MEDS ORDERED: METHOCARBAMOL 500 MG TABLET PO PRN (14:58)
[2020-01-28 15:25] VITALS: BMI 20.8
[2020-01-28] MEDS: hydrOXYzine PAMOATE 25 MG CAPSULE (FP) PO SCH ×2 (17:41→22:08)
[2020-01-28] MEDS: chlordiazePOXIDE HCL 25 MG CAPSULE PO SCH ×2 (17:42→22:08)
[2020-01-28] MEDS: MELATONIN 5 MG TABLETS PO SCH (22:08)
[2020-01-28] MEDS: valACYclovir HCL 500 MG TABLET (FP) PO SCH (22:08)
[2020-01-28] MEDS: THIAMINE HCL 100 MG TABLET (FP) PO SCH (22:08)
[2020-01-29] MEDS: chlordiazePOXIDE HCL 25 MG CAPSULE PO SCH ×4 (05:24→22:05)
[2020-01-29] MEDS: hydrOXYzine PAMOATE 25 MG CAPSULE (FP) PO SCH (05:24)
[2020-01-29] MEDS: valACYclovir HCL 500 MG TABLET (FP) PO SCH ×2 (10:21→22:05)
[2020-01-29] MEDS: BICTEGRAV/EMTRICIT/TENOFOV (BIKTARVY) 50-200-25 MG TABLET PO SCH (10:21)
[2020-01-29] MEDS: VENLAFAXINE HCL 37.5 MG E.R. CAPSULE PO SCH (10:21)
[2020-01-29] MEDS: PRENATAL VITAMINS W/ FOLIC ACID TABLET (FP) PO SCH (10:22)
[2020-01-29] MEDS: NICOTINE 7 MG/24 HOURS TOPICAL PATCH TD SCH (10:22)
[2020-01-29] MEDS: SULFAMETHOXAZOLE/TRIMETHOPRIM 800MG/160MG D.S. TABLET PO SCH (10:22)
[2020-01-29] MEDS: NICOTINE POLACRILEX 2 MG GUM BUC PRN ×3 (10:24→22:08)
[2020-01-29 13:11] LABS: HEMATOCRIT 33.2 % (35.4-49); HEMOGLOBIN 11.1 GM/dL (11.7-16.9); MCH 30.1 pg (25.7-33.7); MCHC 33.3 g/dl (32.0-35.9); MEAN CELL VOLUME 90.5 fl (80-96); MEAN PLT VOLUME 8.9 fl (7.5-11.1); PLATELET COUNT 168 K/MM3 (134-434); RBC 3.67 M/mm3 (4.00-5.60); RDW 15.9 % (11.9-15.9); WHITE BLOOD COUNT 2.3 K/mm3 (4.0-10.0)
[2020-01-29 13:13] LABS: ALBUMIN 3.3 g/dl (3.4-5.0); CALCIUM 8.5 mg/dL (8.5-10.1)
[2020-01-29 13:15] LABS: BLOOD UREA NITROGEN 9.6 mg/dL (7-18); CREATININE 0.7 mg/dL (0.55-1.3)
[2020-01-29] MEDS: hydrOXYzine PAMOATE 50 MG CAPSULE (FP) PO PRN (15:10)
[2020-01-29] MEDS: THIAMINE HCL 100 MG TABLET (FP) PO SCH (22:04)
[2020-01-29] MEDS: MIRTAZAPINE 15 MG TABLET (FP) PO SCH (22:05)
[2020-01-29] MEDS: MELATONIN 5 MG TABLETS PO SCH (23:59)
[2020-01-30] MEDS: chlordiazePOXIDE HCL 25 MG CAPSULE PO SCH ×4 (05:06→22:12)
[2020-01-30] MEDS: SULFAMETHOXAZOLE/TRIMETHOPRIM 800MG/160MG D.S. TABLET PO SCH (10:06)
[2020-01-30] MEDS: valACYclovir HCL 500 MG TABLET (FP) PO SCH ×2 (10:06→22:12)
[2020-01-30] MEDS: VENLAFAXINE HCL 37.5 MG E.R. CAPSULE PO SCH (10:06)
[2020-01-30] MEDS: NICOTINE 7 MG/24 HOURS TOPICAL PATCH TD SCH (10:07)
[2020-01-30] MEDS: BICTEGRAV/EMTRICIT/TENOFOV (BIKTARVY) 50-200-25 MG TABLET PO SCH (10:07)
[2020-01-30] MEDS: PRENATAL VITAMINS W/ FOLIC ACID TABLET (FP) PO SCH (10:07)
[2020-01-30] MEDS: NICOTINE POLACRILEX 2 MG GUM BUC PRN ×3 (10:09→22:15)
[2020-01-30] MEDS: ALBUTEROL SO4 HFA INHALER IH PRN (17:38)
[2020-01-30] MEDS: MELATONIN 5 MG TABLETS PO SCH (22:12)
[2020-01-30] MEDS: THIAMINE HCL 100 MG TABLET (FP) PO SCH (22:12)
[2020-01-30] MEDS: MIRTAZAPINE 15 MG TABLET (FP) PO SCH (22:12)
[2020-01-31] MEDS ORDERED: chlordiazePOXIDE HCL 10 MG CAPSULE PO PRN
[2020-01-31] MEDS: chlordiazePOXIDE HCL 10 MG CAPSULE PO SCH ×4 (06:23→22:13)
[2020-01-31] MEDS: BICTEGRAV/EMTRICIT/TENOFOV (BIKTARVY) 50-200-25 MG TABLET PO SCH (10:44)
[2020-01-31] MEDS: SULFAMETHOXAZOLE/TRIMETHOPRIM 800MG/160MG D.S. TABLET PO SCH (10:44)
[2020-01-31] MEDS: valACYclovir HCL 500 MG TABLET (FP) PO SCH ×2 (10:44→22:13)
[2020-01-31] MEDS: NICOTINE 7 MG/24 HOURS TOPICAL PATCH TD SCH (10:44)
[2020-01-31] MEDS: VENLAFAXINE HCL 37.5 MG E.R. CAPSULE PO SCH (10:44)
[2020-01-31] MEDS: PRENATAL VITAMINS W/ FOLIC ACID TABLET (FP) PO SCH (10:44)
[2020-01-31] MEDS: ALBUTEROL SO4 HFA INHALER IH PRN (16:52)
[2020-01-31] MEDS: THIAMINE HCL 100 MG TABLET (FP) PO SCH (22:13)
[2020-01-31] MEDS: MIRTAZAPINE 15 MG TABLET (FP) PO SCH (22:13)
[2020-01-31] MEDS: MELATONIN 5 MG TABLETS PO SCH (22:14)
[2020-01-31] MEDS: NICOTINE POLACRILEX 2 MG GUM BUC PRN (22:16)
[2020-02-01] MEDS: chlordiazePOXIDE HCL 10 MG CAPSULE PO SCH ×2 (05:34→17:47)
[2020-02-01] MEDS: NICOTINE 7 MG/24 HOURS TOPICAL PATCH TD SCH (10:41)
[2020-02-01] MEDS: PRENATAL VITAMINS W/ FOLIC ACID TABLET (FP) PO SCH (10:41)
[2020-02-01] MEDS: BICTEGRAV/EMTRICIT/TENOFOV (BIKTARVY) 50-200-25 MG TABLET PO SCH (10:41)
[2020-02-01] MEDS: SULFAMETHOXAZOLE/TRIMETHOPRIM 800MG/160MG D.S. TABLET PO SCH (10:41)
[2020-02-01] MEDS: VENLAFAXINE HCL 37.5 MG E.R. CAPSULE PO SCH (10:41)
[2020-02-01] MEDS: valACYclovir HCL 500 MG TABLET (FP) PO SCH ×2 (10:41→22:13)
[2020-02-01] MEDS: NICOTINE POLACRILEX 2 MG GUM BUC PRN ×3 (10:41→22:15)
[2020-02-01] MEDS: ALBUTEROL SO4 HFA INHALER IH PRN (16:01)
[2020-02-01] MEDS: THIAMINE HCL 100 MG TABLET (FP) PO SCH (22:13)
[2020-02-01] MEDS: hydrOXYzine PAMOATE 50 MG CAPSULE (FP) PO PRN (22:13)
[2020-02-01] MEDS: MIRTAZAPINE 15 MG TABLET (FP) PO SCH (22:13)
[2020-02-01] MEDS: MELATONIN 5 MG TABLETS PO SCH (22:13)
[2020-02-02] MEDS ORDERED: chlordiazePOXIDE HCL 10 MG CAPSULE PO ONE (05:00)
[2020-02-02 09:48] VITALS: BP 98/61; PULSE 76; TEMP 97.7
[2020-02-02] MEDS: PRENATAL VITAMINS W/ FOLIC ACID TABLET (FP) PO SCH (10:37)
[2020-02-02] MEDS: VENLAFAXINE HCL 37.5 MG E.R. CAPSULE PO SCH (10:37)
[2020-02-02] MEDS: valACYclovir HCL 500 MG TABLET (FP) PO SCH (10:37)
[2020-02-02] MEDS: NICOTINE 7 MG/24 HOURS TOPICAL PATCH TD SCH (10:37)
[2020-02-02] MEDS: BICTEGRAV/EMTRICIT/TENOFOV (BIKTARVY) 50-200-25 MG TABLET PO SCH (10:37)
[2020-02-02] MEDS: SULFAMETHOXAZOLE/TRIMETHOPRIM 800MG/160MG D.S. TABLET PO SCH (10:37)
== END 2020-02-02 11:50 | disposition other institution (70) | DRG 897 ==
LOC: YASAS 12:44 → Y6N 15:54
PROVIDERS: ADMIT Allergy & Immunology; ATTEND Allergy & Immunology
PROC: HZ2ZZZZ Detoxification Services for Substance Abuse Treatment (ICD-10-PCS; principal; 2020-01-28)
DX: F10.230 Alcohol dependence with withdrawal, uncomplicated (principal); F14.20 Cocaine dependence, uncomplicated; F19.280 Other psychoactive substance dependence with psychoactive substance-induced anxiety disorder; F19.282 Other psychoactive substance dependence with psychoactive substance-induced sleep disorder; F12.20 Cannabis dependence, uncomplicated; F17.210 Nicotine dependence, cigarettes, uncomplicated; F32.9 Major depressive disorder, single episode, unspecified; Z21 Asymptomatic human immunodeficiency virus [HIV] infection status; J45.20 Mild intermittent asthma, uncomplicated; D72.819 Decreased white blood cell count, unspecified; Z87.438 Personal history of other diseases of male genital organs
CPT/HCPCS: 36415; 80053; 85027; 86780; C9803; U0003

== ENCOUNTER 2020-02-02 11:52 | Inpatient (IN) | payer OTHER ==
[2020-02-02] MEDS ORDERED: ACETAMINOPHEN 325 MG TABLET (FP) PO PRN (13:18)
[2020-02-02] MEDS ORDERED: IBUPROFEN 400 MG TABLET (FP) PO PRN (13:18)
[2020-02-02] MEDS ORDERED: P-EPHED 60MG/TRIPROLIDI 2.5MG TABLET PO PRN (13:18)
[2020-02-02] MEDS ORDERED: MAGNESIUM CITRATE 300 ML BOTTLE PO PRN (13:18)
[2020-02-02] MEDS ORDERED: MAG HYDROX/AL HYDROX/SIMETH 30 ML UNIT-DOSE CUP PO PRN (13:18)
[2020-02-02] MEDS ORDERED: LOPERAMIDE HCL 2 MG CAPSULE PO PRN (13:18)
[2020-02-02] MEDS ORDERED: MENTHOL/PHENOL 1 EACH UD MM PRN (13:18)
[2020-02-02] MEDS ORDERED: guaiFENesin 200 MG/10 ML 10 ML UNIT-DOSE CUPS PO PRN (13:18)
[2020-02-02] MEDS: THIAMINE HCL 100 MG TABLET (FP) PO SCH (21:16)
[2020-02-02] MEDS: MELATONIN 5 MG TABLETS PO SCH (21:16)
[2020-02-02] MEDS: MIRTAZAPINE 15 MG TABLET (FP) PO SCH (21:17)
[2020-02-02] MEDS: hydrOXYzine PAMOATE 25 MG CAPSULE (FP) PO PRN (21:18)
[2020-02-02] MEDS: valACYclovir HCL 500 MG TABLET (FP) PO SCH (21:18)
[2020-02-02] MEDS: NICOTINE POLACRILEX 2 MG GUM BUC PRN (21:18)
[2020-02-03] MEDS ORDERED: PT OWN MED DRAWER 7, Y5N ONE (08:58)
[2020-02-03] MEDS: SULFAMETHOXAZOLE/TRIMETHOPRIM 800MG/160MG D.S. TABLET PO SCH (10:46)
[2020-02-03] MEDS: valACYclovir HCL 500 MG TABLET (FP) PO SCH ×2 (10:46→21:14)
[2020-02-03] MEDS: VENLAFAXINE HCL 75 MG E.R. CAPSULES PO SCH (10:46)
[2020-02-03] MEDS: BICTEGRAV/EMTRICIT/TENOFOV (BIKTARVY) 50-200-25 MG TABLET PO SCH (10:46)
[2020-02-03] MEDS: NICOTINE 7 MG/24 HOURS TOPICAL PATCH TD SCH (10:47)
[2020-02-03] MEDS: PRENATAL VITAMINS W/ FOLIC ACID TABLET (FP) PO SCH (10:47)
[2020-02-03] MEDS: NICOTINE POLACRILEX 2 MG GUM BUC PRN (10:50)
[2020-02-03] MEDS: ALBUTEROL SO4 HFA INHALER IH PRN (15:47)
[2020-02-03] MEDS: hydrOXYzine PAMOATE 25 MG CAPSULE (FP) PO PRN (21:14)
[2020-02-03] MEDS: MIRTAZAPINE 15 MG TABLET (FP) PO SCH (21:14)
[2020-02-03] MEDS: MELATONIN 5 MG TABLETS PO SCH (21:14)
[2020-02-03] MEDS: THIAMINE HCL 100 MG TABLET (FP) PO SCH (21:14)
[2020-02-04] MEDS ORDERED: PT OWN MED DRAWER 7, Y5N ONE ×2 (08:54→10:14)
[2020-02-04] MEDS: PRENATAL VITAMINS W/ FOLIC ACID TABLET (FP) PO SCH (10:10)
[2020-02-04] MEDS: valACYclovir HCL 500 MG TABLET (FP) PO SCH ×2 (10:10→21:20)
[2020-02-04] MEDS: SULFAMETHOXAZOLE/TRIMETHOPRIM 800MG/160MG D.S. TABLET PO SCH (10:10)
[2020-02-04] MEDS: NICOTINE 7 MG/24 HOURS TOPICAL PATCH TD SCH (10:11)
[2020-02-04] MEDS: BICTEGRAV/EMTRICIT/TENOFOV (BIKTARVY) 50-200-25 MG TABLET PO SCH (10:11)
[2020-02-04] MEDS: VENLAFAXINE HCL 75 MG E.R. CAPSULES PO SCH (10:12)
[2020-02-04] MEDS: NICOTINE POLACRILEX 2 MG GUM BUC PRN ×3 (10:14→21:21)
[2020-02-04] MEDS: ALBUTEROL SO4 HFA INHALER IH PRN ×2 (10:15→14:29)
[2020-02-04] MEDS: hydrOXYzine PAMOATE 25 MG CAPSULE (FP) PO PRN (17:34)
[2020-02-04] MEDS: MELATONIN 5 MG TABLETS PO SCH (21:20)
[2020-02-04] MEDS: THIAMINE HCL 100 MG TABLET (FP) PO SCH (21:20)
[2020-02-04] MEDS: MIRTAZAPINE 15 MG TABLET (FP) PO SCH (21:20)
[2020-02-05] MEDS ORDERED: PT OWN MED DRAWER 7, Y5N ONE (08:37)
[2020-02-05] MEDS: SULFAMETHOXAZOLE/TRIMETHOPRIM 800MG/160MG D.S. TABLET PO SCH (10:49)
[2020-02-05] MEDS: valACYclovir HCL 500 MG TABLET (FP) PO SCH ×2 (10:50→21:07)
[2020-02-05] MEDS: VENLAFAXINE HCL 75 MG E.R. CAPSULES PO SCH (10:50)
[2020-02-05] MEDS: PRENATAL VITAMINS W/ FOLIC ACID TABLET (FP) PO SCH (10:50)
[2020-02-05] MEDS: NICOTINE 7 MG/24 HOURS TOPICAL PATCH TD SCH (10:50)
[2020-02-05] MEDS: BICTEGRAV/EMTRICIT/TENOFOV (BIKTARVY) 50-200-25 MG TABLET PO SCH (10:50)
[2020-02-05] MEDS: NICOTINE POLACRILEX 2 MG GUM BUC PRN ×3 (10:51→21:08)
[2020-02-05] MEDS: hydrOXYzine PAMOATE 25 MG CAPSULE (FP) PO PRN (14:34)
[2020-02-05] MEDS: MIRTAZAPINE 15 MG TABLET (FP) PO SCH (21:07)
[2020-02-05] MEDS: MELATONIN 5 MG TABLETS PO SCH (21:07)
[2020-02-05] MEDS: THIAMINE HCL 100 MG TABLET (FP) PO SCH (21:07)
[2020-02-06] MEDS: PRENATAL VITAMINS W/ FOLIC ACID TABLET (FP) PO SCH (09:56)
[2020-02-06] MEDS: hydrOXYzine PAMOATE 25 MG CAPSULE (FP) PO PRN (09:56)
[2020-02-06] MEDS: valACYclovir HCL 500 MG TABLET (FP) PO SCH ×2 (09:57→21:28)
[2020-02-06] MEDS: BICTEGRAV/EMTRICIT/TENOFOV (BIKTARVY) 50-200-25 MG TABLET PO SCH (09:57)
[2020-02-06] MEDS: NICOTINE 7 MG/24 HOURS TOPICAL PATCH TD SCH (09:57)
[2020-02-06] MEDS: VENLAFAXINE HCL 75 MG E.R. CAPSULES PO SCH (09:57)
[2020-02-06] MEDS: SULFAMETHOXAZOLE/TRIMETHOPRIM 800MG/160MG D.S. TABLET PO SCH (09:57)
[2020-02-06] MEDS: NICOTINE POLACRILEX 2 MG GUM BUC PRN ×3 (09:57→21:28)
[2020-02-06] MEDS: ALBUTEROL SO4 HFA INHALER IH PRN (09:58)
[2020-02-06] MEDS: MELATONIN 5 MG TABLETS PO SCH (21:28)
[2020-02-06] MEDS: MIRTAZAPINE 15 MG TABLET (FP) PO SCH (21:28)
[2020-02-06] MEDS: THIAMINE HCL 100 MG TABLET (FP) PO SCH (21:28)
[2020-02-07] MEDS: PRENATAL VITAMINS W/ FOLIC ACID TABLET (FP) PO SCH (09:58)
[2020-02-07] MEDS: NICOTINE 7 MG/24 HOURS TOPICAL PATCH TD SCH (09:59)
[2020-02-07] MEDS: valACYclovir HCL 500 MG TABLET (FP) PO SCH ×2 (09:59→21:09)
[2020-02-07] MEDS: hydrOXYzine PAMOATE 25 MG CAPSULE (FP) PO PRN (09:59)
[2020-02-07] MEDS: SULFAMETHOXAZOLE/TRIMETHOPRIM 800MG/160MG D.S. TABLET PO SCH (09:59)
[2020-02-07] MEDS: NICOTINE POLACRILEX 2 MG GUM BUC PRN ×2 (09:59→21:09)
[2020-02-07] MEDS: VENLAFAXINE HCL 75 MG E.R. CAPSULES PO SCH (09:59)
[2020-02-07] MEDS: BICTEGRAV/EMTRICIT/TENOFOV (BIKTARVY) 50-200-25 MG TABLET PO SCH (09:59)
[2020-02-07] MEDS: MIRTAZAPINE 15 MG TABLET (FP) PO SCH (21:09)
[2020-02-07] MEDS: MELATONIN 5 MG TABLETS PO SCH (21:09)
[2020-02-07] MEDS: THIAMINE HCL 100 MG TABLET (FP) PO SCH (21:09)
[2020-02-08] MEDS: SULFAMETHOXAZOLE/TRIMETHOPRIM 800MG/160MG D.S. TABLET PO SCH (11:26)
[2020-02-08] MEDS: valACYclovir HCL 500 MG TABLET (FP) PO SCH ×2 (11:26→21:42)
[2020-02-08] MEDS: BICTEGRAV/EMTRICIT/TENOFOV (BIKTARVY) 50-200-25 MG TABLET PO SCH (11:27)
[2020-02-08] MEDS: VENLAFAXINE HCL 75 MG E.R. CAPSULES PO SCH (11:28)
[2020-02-08] MEDS: PRENATAL VITAMINS W/ FOLIC ACID TABLET (FP) PO SCH (11:28)
[2020-02-08] MEDS: NICOTINE 7 MG/24 HOURS TOPICAL PATCH TD SCH (11:29)
[2020-02-08] MEDS: hydrOXYzine PAMOATE 25 MG CAPSULE (FP) PO PRN (12:26)
[2020-02-08] MEDS: ALBUTEROL SO4 HFA INHALER IH PRN (12:29)
[2020-02-08] MEDS: NICOTINE POLACRILEX 2 MG GUM BUC PRN ×3 (12:29→21:43)
[2020-02-08] MEDS: MAGNESIUM HYDROX 2400MG/30ML ORAL SUSPENSION 30 ML CUP PO PRN (17:09)
[2020-02-08] MEDS: MIRTAZAPINE 15 MG TABLET (FP) PO SCH (21:42)
[2020-02-08] MEDS: MELATONIN 5 MG TABLETS PO SCH (21:42)
[2020-02-08] MEDS: THIAMINE HCL 100 MG TABLET (FP) PO SCH (21:43)
[2020-02-09] MEDS: PRENATAL VITAMINS W/ FOLIC ACID TABLET (FP) PO SCH (10:19)
[2020-02-09] MEDS: hydrOXYzine PAMOATE 25 MG CAPSULE (FP) PO PRN ×2 (10:19→18:02)
[2020-02-09] MEDS: valACYclovir HCL 500 MG TABLET (FP) PO SCH ×2 (10:19→21:11)
[2020-02-09] MEDS: SULFAMETHOXAZOLE/TRIMETHOPRIM 800MG/160MG D.S. TABLET PO SCH (10:19)
[2020-02-09] MEDS: NICOTINE 7 MG/24 HOURS TOPICAL PATCH TD SCH (10:19)
[2020-02-09] MEDS: BICTEGRAV/EMTRICIT/TENOFOV (BIKTARVY) 50-200-25 MG TABLET PO SCH (10:19)
[2020-02-09] MEDS: VENLAFAXINE HCL 75 MG E.R. CAPSULES PO SCH (10:19)
[2020-02-09] MEDS: NICOTINE POLACRILEX 2 MG GUM BUC PRN ×3 (10:19→21:12)
[2020-02-09] MEDS: ALBUTEROL SO4 HFA INHALER IH PRN (10:19)
[2020-02-09] MEDS: THIAMINE HCL 100 MG TABLET (FP) PO SCH (21:11)
[2020-02-09] MEDS: MELATONIN 5 MG TABLETS PO SCH (21:11)
[2020-02-09] MEDS: MIRTAZAPINE 15 MG TABLET (FP) PO SCH (22:11)
[2020-02-10] MEDS ORDERED: PT OWN MED DRAWER 7, Y5N ONE (08:39)
[2020-02-10] MEDS: PRENATAL VITAMINS W/ FOLIC ACID TABLET (FP) PO SCH (09:42)
[2020-02-10] MEDS: VENLAFAXINE HCL 75 MG E.R. CAPSULES PO SCH (09:43)
[2020-02-10] MEDS: valACYclovir HCL 500 MG TABLET (FP) PO SCH ×2 (09:43→21:16)
[2020-02-10] MEDS: hydrOXYzine PAMOATE 25 MG CAPSULE (FP) PO PRN (09:43)
[2020-02-10] MEDS: NICOTINE POLACRILEX 2 MG GUM BUC PRN ×3 (09:43→19:18)
[2020-02-10] MEDS: NICOTINE 7 MG/24 HOURS TOPICAL PATCH TD SCH (09:43)
[2020-02-10] MEDS: ALBUTEROL SO4 HFA INHALER IH PRN (09:43)
[2020-02-10] MEDS: BICTEGRAV/EMTRICIT/TENOFOV (BIKTARVY) 50-200-25 MG TABLET PO SCH (09:43)
[2020-02-10] MEDS: SULFAMETHOXAZOLE/TRIMETHOPRIM 800MG/160MG D.S. TABLET PO SCH (09:43)
[2020-02-10] MEDS: THIAMINE HCL 100 MG TABLET (FP) PO SCH (21:16)
[2020-02-10] MEDS: MIRTAZAPINE 15 MG TABLET (FP) PO SCH (21:16)
[2020-02-10] MEDS: MELATONIN 5 MG TABLETS PO SCH (21:16)
[2020-02-11] MEDS: NICOTINE 7 MG/24 HOURS TOPICAL PATCH TD SCH (09:32)
[2020-02-11] MEDS: valACYclovir HCL 500 MG TABLET (FP) PO SCH ×2 (09:32→21:12)
[2020-02-11] MEDS: PRENATAL VITAMINS W/ FOLIC ACID TABLET (FP) PO SCH (09:32)
[2020-02-11] MEDS: NICOTINE POLACRILEX 2 MG GUM BUC PRN ×3 (09:32→21:12)
[2020-02-11] MEDS: hydrOXYzine PAMOATE 25 MG CAPSULE (FP) PO PRN ×2 (09:32→16:36)
[2020-02-11] MEDS: VENLAFAXINE HCL 75 MG E.R. CAPSULES PO SCH (09:32)
[2020-02-11] MEDS: BICTEGRAV/EMTRICIT/TENOFOV (BIKTARVY) 50-200-25 MG TABLET PO SCH (09:32)
[2020-02-11] MEDS: SULFAMETHOXAZOLE/TRIMETHOPRIM 800MG/160MG D.S. TABLET PO SCH (09:32)
[2020-02-11] MEDS: ALBUTEROL SO4 HFA INHALER IH PRN ×2 (09:33→13:47)
[2020-02-11] MEDS: MIRTAZAPINE 15 MG TABLET (FP) PO SCH (21:12)
[2020-02-11] MEDS: MELATONIN 5 MG TABLETS PO SCH (21:12)
[2020-02-11] MEDS: THIAMINE HCL 100 MG TABLET (FP) PO SCH (21:12)
[2020-02-12] MEDS: SULFAMETHOXAZOLE/TRIMETHOPRIM 800MG/160MG D.S. TABLET PO SCH (09:48)
[2020-02-12] MEDS: hydrOXYzine PAMOATE 25 MG CAPSULE (FP) PO PRN (09:48)
[2020-02-12] MEDS: PRENATAL VITAMINS W/ FOLIC ACID TABLET (FP) PO SCH (09:48)
[2020-02-12] MEDS: BICTEGRAV/EMTRICIT/TENOFOV (BIKTARVY) 50-200-25 MG TABLET PO SCH (09:49)
[2020-02-12] MEDS: VENLAFAXINE HCL 75 MG E.R. CAPSULES PO SCH (09:50)
[2020-02-12] MEDS: MAGNESIUM HYDROX 2400MG/30ML ORAL SUSPENSION 30 ML CUP PO PRN (09:50)
[2020-02-12] MEDS: NICOTINE POLACRILEX 2 MG GUM BUC PRN ×3 (09:52→21:27)
[2020-02-12] MEDS: NICOTINE 7 MG/24 HOURS TOPICAL PATCH TD SCH (10:48)
[2020-02-12] MEDS: valACYclovir HCL 500 MG TABLET (FP) PO SCH ×2 (10:48→21:26)
[2020-02-12] MEDS: THIAMINE HCL 100 MG TABLET (FP) PO SCH (21:26)
[2020-02-12] MEDS: MIRTAZAPINE 15 MG TABLET (FP) PO SCH (21:26)
[2020-02-12] MEDS: MELATONIN 5 MG TABLETS PO SCH (21:27)
[2020-02-13] MEDS: valACYclovir HCL 500 MG TABLET (FP) PO SCH ×2 (10:06→21:37)
[2020-02-13] MEDS: PRENATAL VITAMINS W/ FOLIC ACID TABLET (FP) PO SCH (10:06)
[2020-02-13] MEDS: VENLAFAXINE HCL 75 MG E.R. CAPSULES PO SCH (10:06)
[2020-02-13] MEDS: BICTEGRAV/EMTRICIT/TENOFOV (BIKTARVY) 50-200-25 MG TABLET PO SCH (10:06)
[2020-02-13] MEDS: hydrOXYzine PAMOATE 25 MG CAPSULE (FP) PO PRN (10:06)
[2020-02-13] MEDS: SULFAMETHOXAZOLE/TRIMETHOPRIM 800MG/160MG D.S. TABLET PO SCH (10:06)
[2020-02-13] MEDS: NICOTINE 7 MG/24 HOURS TOPICAL PATCH TD SCH (10:07)
[2020-02-13] MEDS: NICOTINE POLACRILEX 2 MG GUM BUC PRN ×3 (10:07→21:38)
[2020-02-13] MEDS: THIAMINE HCL 100 MG TABLET (FP) PO SCH (21:37)
[2020-02-13] MEDS: MELATONIN 5 MG TABLETS PO SCH (21:37)
[2020-02-13] MEDS: MIRTAZAPINE 15 MG TABLET (FP) PO SCH (21:38)
[2020-02-14] MEDS: SULFAMETHOXAZOLE/TRIMETHOPRIM 800MG/160MG D.S. TABLET PO SCH (09:55)
[2020-02-14] MEDS: BICTEGRAV/EMTRICIT/TENOFOV (BIKTARVY) 50-200-25 MG TABLET PO SCH (09:55)
[2020-02-14] MEDS: VENLAFAXINE HCL 75 MG E.R. CAPSULES PO SCH (09:55)
[2020-02-14] MEDS: NICOTINE 7 MG/24 HOURS TOPICAL PATCH TD SCH (09:55)
[2020-02-14] MEDS: valACYclovir HCL 500 MG TABLET (FP) PO SCH ×2 (09:56→21:07)
[2020-02-14] MEDS: PRENATAL VITAMINS W/ FOLIC ACID TABLET (FP) PO SCH (09:56)
[2020-02-14] MEDS: NICOTINE POLACRILEX 2 MG GUM BUC PRN ×4 (09:57→21:08)
[2020-02-14] MEDS: ALBUTEROL SO4 HFA INHALER IH PRN (12:40)
[2020-02-14] MEDS: hydrOXYzine PAMOATE 25 MG CAPSULE (FP) PO PRN (17:06)
[2020-02-14] MEDS: MIRTAZAPINE 15 MG TABLET (FP) PO SCH (21:07)
[2020-02-14] MEDS: MELATONIN 5 MG TABLETS PO SCH (21:07)
[2020-02-14] MEDS: THIAMINE HCL 100 MG TABLET (FP) PO SCH (21:07)
[2020-02-15] MEDS: VENLAFAXINE HCL 75 MG E.R. CAPSULES PO SCH (10:35)
[2020-02-15] MEDS: NICOTINE 7 MG/24 HOURS TOPICAL PATCH TD SCH (10:35)
[2020-02-15] MEDS: PRENATAL VITAMINS W/ FOLIC ACID TABLET (FP) PO SCH (10:35)
[2020-02-15] MEDS: SULFAMETHOXAZOLE/TRIMETHOPRIM 800MG/160MG D.S. TABLET PO SCH (10:35)
[2020-02-15] MEDS: BICTEGRAV/EMTRICIT/TENOFOV (BIKTARVY) 50-200-25 MG TABLET PO SCH (10:35)
[2020-02-15] MEDS: valACYclovir HCL 500 MG TABLET (FP) PO SCH ×2 (10:35→21:34)
[2020-02-15] MEDS: NICOTINE POLACRILEX 2 MG GUM BUC PRN ×3 (10:36→21:35)
[2020-02-15] MEDS: ALBUTEROL SO4 HFA INHALER IH PRN (10:37)
[2020-02-15] MEDS: MIRTAZAPINE 15 MG TABLET (FP) PO SCH (21:34)
[2020-02-15] MEDS: THIAMINE HCL 100 MG TABLET (FP) PO SCH (21:34)
[2020-02-15] MEDS: MELATONIN 5 MG TABLETS PO SCH (21:34)
[2020-02-16] MEDS: valACYclovir HCL 500 MG TABLET (FP) PO SCH ×2 (09:43→21:14)
[2020-02-16] MEDS: NICOTINE 7 MG/24 HOURS TOPICAL PATCH TD SCH (09:43)
[2020-02-16] MEDS: PRENATAL VITAMINS W/ FOLIC ACID TABLET (FP) PO SCH (09:43)
[2020-02-16] MEDS: VENLAFAXINE HCL 75 MG E.R. CAPSULES PO SCH (09:43)
[2020-02-16] MEDS: BICTEGRAV/EMTRICIT/TENOFOV (BIKTARVY) 50-200-25 MG TABLET PO SCH (09:43)
[2020-02-16] MEDS: SULFAMETHOXAZOLE/TRIMETHOPRIM 800MG/160MG D.S. TABLET PO SCH (09:44)
[2020-02-16] MEDS: NICOTINE POLACRILEX 2 MG GUM BUC PRN ×2 (09:45→18:04)
[2020-02-16] MEDS ORDERED: PT OWN MED DRAWER 7, Y5N ONE (19:38)
[2020-02-16] MEDS: MIRTAZAPINE 15 MG TABLET (FP) PO SCH (21:14)
[2020-02-16] MEDS: THIAMINE HCL 100 MG TABLET (FP) PO SCH (21:14)
[2020-02-16] MEDS: MELATONIN 5 MG TABLETS PO SCH (21:14)
[2020-02-17] MEDS ORDERED: PT OWN MED DRAWER 7, Y5N ONE (08:53)
[2020-02-17] MEDS: hydrOXYzine PAMOATE 25 MG CAPSULE (FP) PO PRN (10:49)
[2020-02-17] MEDS: SULFAMETHOXAZOLE/TRIMETHOPRIM 800MG/160MG D.S. TABLET PO SCH (10:49)
[2020-02-17] MEDS: valACYclovir HCL 500 MG TABLET (FP) PO SCH ×2 (10:49→21:22)
[2020-02-17] MEDS: PRENATAL VITAMINS W/ FOLIC ACID TABLET (FP) PO SCH (10:49)
[2020-02-17] MEDS: VENLAFAXINE HCL 75 MG E.R. CAPSULES PO SCH (10:49)
[2020-02-17] MEDS: BICTEGRAV/EMTRICIT/TENOFOV (BIKTARVY) 50-200-25 MG TABLET PO SCH (10:50)
[2020-02-17] MEDS: NICOTINE 7 MG/24 HOURS TOPICAL PATCH TD SCH (10:50)
[2020-02-17] MEDS: ALBUTEROL SO4 HFA INHALER IH PRN (10:51)
[2020-02-17] MEDS: NICOTINE POLACRILEX 2 MG GUM BUC PRN ×4 (10:52→21:22)
[2020-02-17] MEDS: THIAMINE HCL 100 MG TABLET (FP) PO SCH (21:22)
[2020-02-17] MEDS: MIRTAZAPINE 15 MG TABLET (FP) PO SCH (21:22)
[2020-02-17] MEDS: MELATONIN 5 MG TABLETS PO SCH (21:22)
[2020-02-18] MEDS: valACYclovir HCL 500 MG TABLET (FP) PO SCH ×2 (09:39→21:13)
[2020-02-18] MEDS: NICOTINE 7 MG/24 HOURS TOPICAL PATCH TD SCH (09:39)
[2020-02-18] MEDS: PRENATAL VITAMINS W/ FOLIC ACID TABLET (FP) PO SCH (09:39)
[2020-02-18] MEDS: VENLAFAXINE HCL 75 MG E.R. CAPSULES PO SCH (09:39)
[2020-02-18] MEDS: SULFAMETHOXAZOLE/TRIMETHOPRIM 800MG/160MG D.S. TABLET PO SCH (09:39)
[2020-02-18] MEDS: BICTEGRAV/EMTRICIT/TENOFOV (BIKTARVY) 50-200-25 MG TABLET PO SCH (09:39)
[2020-02-18] MEDS: hydrOXYzine PAMOATE 25 MG CAPSULE (FP) PO PRN (09:39)
[2020-02-18] MEDS: NICOTINE POLACRILEX 2 MG GUM BUC PRN ×3 (09:41→19:45)
[2020-02-18] MEDS: MAGNESIUM HYDROX 2400MG/30ML ORAL SUSPENSION 30 ML CUP PO PRN (10:14)
[2020-02-18] MEDS: MIRTAZAPINE 15 MG TABLET (FP) PO SCH (21:12)
[2020-02-18] MEDS: MELATONIN 5 MG TABLETS PO SCH (21:13)
[2020-02-18] MEDS: THIAMINE HCL 100 MG TABLET (FP) PO SCH (21:13)
[2020-02-19 06:54] VITALS: BP 106/85; PULSE 88; TEMP 97.9
[2020-02-19] MEDS ORDERED: PT OWN MED DRAWER 7, Y5N ONE (09:01)
[2020-02-19] MEDS: SULFAMETHOXAZOLE/TRIMETHOPRIM 800MG/160MG D.S. TABLET PO SCH (09:46)
[2020-02-19] MEDS: VENLAFAXINE HCL 75 MG E.R. CAPSULES PO SCH (09:46)
[2020-02-19] MEDS: PRENATAL VITAMINS W/ FOLIC ACID TABLET (FP) PO SCH (09:46)
[2020-02-19] MEDS: hydrOXYzine PAMOATE 25 MG CAPSULE (FP) PO PRN (09:46)
[2020-02-19] MEDS: valACYclovir HCL 500 MG TABLET (FP) PO SCH (09:47)
[2020-02-19] MEDS: BICTEGRAV/EMTRICIT/TENOFOV (BIKTARVY) 50-200-25 MG TABLET PO SCH (09:47)
[2020-02-19] MEDS: NICOTINE 7 MG/24 HOURS TOPICAL PATCH TD SCH (09:47)
== END 2020-02-19 09:50 | disposition home or self-care (01) | DRG 895 ==
LOC: YASAS 11:52 → Y3W 11:53
PROVIDERS: ADMIT Allergy & Immunology; ATTEND Allergy & Immunology
PROC: HZ42ZZZ Group Counseling for Substance Abuse Treatment, Cognitive-Behavioral (ICD-10-PCS; principal; 2020-02-02)
DX: F10.20 Alcohol dependence, uncomplicated (principal); F14.20 Cocaine dependence, uncomplicated; F12.20 Cannabis dependence, uncomplicated; F17.210 Nicotine dependence, cigarettes, uncomplicated; Z21 Asymptomatic human immunodeficiency virus [HIV] infection status; J45.909 Unspecified asthma, uncomplicated

== ENCOUNTER 2020-05-19 16:26 | Inpatient (IN) | payer OTHER ==
[2020-05-19 17:06] VITALS: BMI 22.7
[2020-05-19] MEDS ORDERED: MAGNESIUM CITRATE 300 ML BOTTLE PO PRN (17:51)
[2020-05-19] MEDS ORDERED: NICOTINE POLACRILEX 2 MG GUM BUC PRN (17:51)
[2020-05-19] MEDS ORDERED: MENTHOL/PHENOL 1 EACH UD MM PRN (17:51)
[2020-05-19] MEDS ORDERED: ONDANSETRON *ODT* 4 MG TABLET SL PRN (17:51)
[2020-05-19] MEDS ORDERED: IBUPROFEN 400 MG TABLET (FP) PO PRN (17:51)
[2020-05-19] MEDS ORDERED: MAGNESIUM HYDROX 2400MG/30ML ORAL SUSPENSION 30 ML CUP PO PRN (17:51)
[2020-05-19] MEDS ORDERED: MAG HYDROX/AL HYDROX/SIMETH 30 ML UNIT-DOSE CUP PO PRN (17:51)
[2020-05-19] MEDS ORDERED: METHOCARBAMOL 500 MG TABLET PO PRN (17:51)
[2020-05-19] MEDS ORDERED: BISMUTH SUBSALICYLATE 524 MG/30 ML UD PO PRN (17:51)
[2020-05-19] MEDS ORDERED: hydrOXYzine PAMOATE 25 MG CAPSULE (FP) PO PRN (17:51)
[2020-05-19] MEDS ORDERED: ACETAMINOPHEN 325 MG TABLET (FP) PO PRN ×2 (17:51)
[2020-05-19] MEDS ORDERED: ALBUTEROL SO4 HFA INHALER IH PRN (18:12)
[2020-05-19] MEDS ORDERED: chlordiazePOXIDE HCL 25 MG CAPSULE PO ONE (20:42)
[2020-05-19] MEDS ORDERED: MELATONIN 5 MG TABLETS PO SCH (22:00)
[2020-05-19] MEDS ORDERED: THIAMINE HCL 100 MG TABLET (FP) PO SCH (22:00)
[2020-05-20] MEDS ORDERED: LORazepam 2 MG TABLET PO SCH (05:00)
[2020-05-20] MEDS ORDERED: LORazepam 1 MG TABLET PO PRN (06:07)
[2020-05-20] MEDS ORDERED: cloNIDine HCL 0.1 MG TABLET PO PRN (06:07)
[2020-05-20] MEDS ORDERED: SULFAMETHOXAZOLE/TRIMETHOPRIM 800MG/160MG D.S. TABLET PO SCH (10:00)
[2020-05-20] MEDS ORDERED: METHADONE HCL 10 MG TABLET (FOR DETOX USE ONLY) PO ONE (10:00)
[2020-05-20] MEDS ORDERED: BICTEGRAV/EMTRICIT/TENOFOV (BIKTARVY) 50-200-25 MG TABLET PO SCH (10:00)
[2020-05-20] MEDS ORDERED: PRENATAL VITAMINS W/ FOLIC ACID TABLET (FP) PO SCH (10:00)
[2020-05-20] MEDS ORDERED: VENLAFAXINE HCL 37.5 MG E.R. CAPSULE PO SCH (10:15)
[2020-05-20 10:50] LABS: POTASSIUM 3.4 mmol/L (3.5-5.1)
[2020-05-20 10:52] LABS: CALCIUM 8.9 mg/dL (8.5-10.1)
[2020-05-20 10:53] LABS: ALBUMIN 3.4 g/dl (3.4-5.0); BLOOD UREA NITROGEN 9.8 mg/dL (7-18); HEMATOCRIT 33.6 % (35.4-49); HEMOGLOBIN 11.4 GM/dL (11.7-16.9); MCH 30.2 pg (25.7-33.7); MEAN CELL VOLUME 88.9 fl (80-96); MEAN PLT VOLUME 9.8 fl (7.5-11.1); PLATELET COUNT 128 K/MM3 (134-434); RBC 3.78 M/mm3 (4.00-5.60); RDW 14.9 % (11.9-15.9)
[2020-05-20 10:56] LABS: CREATININE 0.9 mg/dL (0.55-1.3)
[2020-05-20 10:58] LABS: BILIRUBIN,TOTAL 0.6 mg/dL (0.2-1)
[2020-05-20 14:04] VITALS: BP 105/68; PULSE 65; TEMP 96.8
[2020-05-20] MEDS ORDERED: MIRTAZAPINE 15 MG TABLET (FP) PO SCH (22:00)
[2020-05-21] MEDS ORDERED: LORazepam 1 MG TABLET PO SCH (05:00)
[2020-05-21] MEDS ORDERED: METHADONE HCL 10 MG TABLET (FOR DETOX USE ONLY) PO ONE (10:00)
[2020-05-21] MEDS ORDERED: POTASSIUM CHLORIDE TABS 10 MEQ TABLET.ER (FP) PO ONE (15:54)
[2020-05-22] MEDS ORDERED: LORazepam 0.5 MG TABLET PO PRN
[2020-05-22] MEDS ORDERED: LORazepam 0.5 MG TABLET PO SCH (05:00)
[2020-05-22] MEDS ORDERED: METHADONE HCL 10 MG TABLET (FOR DETOX USE ONLY) PO ONE (10:00)
[2020-05-23] MEDS ORDERED: LORazepam 0.5 MG TABLET PO ONE (05:00)
[2020-05-23] MEDS ORDERED: METHADONE (DETOX) 10 MG, METHADONE (DETOX) 5 MG PO ONE (10:00)
[2020-05-24] MEDS ORDERED: METHADONE HCL 10 MG TABLET (FOR DETOX USE ONLY) PO ONE (10:00)
[2020-05-25] MEDS ORDERED: METHADONE HCL 5 MG TABLET (FOR DETOX USE ONLY) PO ONE (06:00)
== END 2020-05-20 14:00 | disposition other institution (70) | DRG 897 ==
LOC: YASAS 16:26 → Y3N 17:58 → UNDOADMIN 17:58
PROVIDERS: ADMIT Allergy & Immunology; ATTEND Allergy & Immunology
PROC: HZ2ZZZZ Detoxification Services for Substance Abuse Treatment (ICD-10-PCS; principal; 2020-05-19)
DX: F10.230 Alcohol dependence with withdrawal, uncomplicated (principal); F11.20 Opioid dependence, uncomplicated; F13.20 Sedative, hypnotic or anxiolytic dependence, uncomplicated; F14.20 Cocaine dependence, uncomplicated; F19.282 Other psychoactive substance dependence with psychoactive substance-induced sleep disorder; F19.280 Other psychoactive substance dependence with psychoactive substance-induced anxiety disorder; F19.24 Other psychoactive substance dependence with psychoactive substance-induced mood disorder; F17.210 Nicotine dependence, cigarettes, uncomplicated; Z21 Asymptomatic human immunodeficiency virus [HIV] infection status; J45.909 Unspecified asthma, uncomplicated
CPT/HCPCS: 36415; 80053; 85027; 86780; C9803; U0003; U0005

== ENCOUNTER 2020-05-20 14:17 | Inpatient (IN) | payer OTHER ==
[2020-05-20] MEDS ORDERED: MAG HYDROX/AL HYDROX/SIMETH 30 ML UNIT-DOSE CUP PO PRN (15:10)
[2020-05-20] MEDS ORDERED: MENTHOL/PHENOL 1 EACH UD MM PRN (15:10)
[2020-05-20] MEDS ORDERED: ACETAMINOPHEN 325 MG TABLET (FP) PO PRN (15:10)
[2020-05-20] MEDS ORDERED: guaiFENesin 200 MG/10 ML 10 ML UNIT-DOSE CUPS PO PRN (15:10)
[2020-05-20] MEDS ORDERED: LOPERAMIDE HCL 2 MG CAPSULE PO PRN (15:10)
[2020-05-20] MEDS ORDERED: MAGNESIUM CITRATE 300 ML BOTTLE PO PRN (15:10)
[2020-05-20] MEDS ORDERED: hydrOXYzine PAMOATE 25 MG CAPSULE (FP) PO PRN (15:10)
[2020-05-20] MEDS ORDERED: P-EPHED 60MG/TRIPROLIDI 2.5MG TABLET PO PRN (15:10)
[2020-05-20] MEDS: NICOTINE POLACRILEX 4 MG GUM BUC PRN ×2 (17:53→21:14)
[2020-05-20] MEDS: THIAMINE HCL 100 MG TABLET (FP) PO SCH (21:12)
[2020-05-20] MEDS: MELATONIN 5 MG TABLETS PO PRN (21:12)
[2020-05-20] MEDS: hydrOXYzine PAMOATE 50 MG CAPSULE (FP) PO SCH (21:13)
[2020-05-20] MEDS: MIRTAZAPINE 15 MG TABLET (FP) PO SCH (21:14)
[2020-05-20] MEDS: ALBUTEROL SO4 HFA INHALER IH PRN (21:14)
[2020-05-20] MEDS ORDERED: MIRTAZAPINE 15 MG TABLET (FP) PO SCH ×2 (22:00)
[2020-05-20] MEDS ORDERED: MELATONIN 5 MG TABLETS PO SCH (22:00)
[2020-05-21] MEDS: VENLAFAXINE HCL 37.5 MG E.R. CAPSULE PO SCH (08:35)
[2020-05-21] MEDS: hydrOXYzine PAMOATE 50 MG CAPSULE (FP) PO SCH ×2 (09:35→21:13)
[2020-05-21] MEDS: BICTEGRAV/EMTRICIT/TENOFOV (BIKTARVY) 50-200-25 MG TABLET PO SCH (09:35)
[2020-05-21] MEDS: SULFAMETHOXAZOLE/TRIMETHOPRIM 800MG/160MG D.S. TABLET PO SCH (09:35)
[2020-05-21] MEDS: MAGNESIUM HYDROX 2400MG/30ML ORAL SUSPENSION 30 ML CUP PO PRN (09:37)
[2020-05-21] MEDS: NICOTINE 21 MG/24 HOURS TOPICAL PATCH TD SCH (09:37)
[2020-05-21] MEDS: ALBUTEROL SO4 HFA INHALER IH PRN (09:37)
[2020-05-21] MEDS: PRENATAL VITAMINS W/ FOLIC ACID TABLET (FP) PO SCH (10:29)
[2020-05-21] MEDS: valACYclovir HCL 500 MG TABLET (FP) PO SCH ×2 (10:45→21:12)
[2020-05-21] MEDS: NICOTINE POLACRILEX 4 MG GUM BUC PRN ×2 (14:07→21:14)
[2020-05-21] MEDS: THIAMINE HCL 100 MG TABLET (FP) PO SCH (21:13)
[2020-05-21] MEDS: MIRTAZAPINE 15 MG TABLET (FP) PO SCH (21:13)
[2020-05-22] MEDS: BICTEGRAV/EMTRICIT/TENOFOV (BIKTARVY) 50-200-25 MG TABLET PO SCH (08:08)
[2020-05-22] MEDS: hydrOXYzine PAMOATE 50 MG CAPSULE (FP) PO SCH ×2 (10:07→21:18)
[2020-05-22] MEDS: NICOTINE 21 MG/24 HOURS TOPICAL PATCH TD SCH (10:07)
[2020-05-22] MEDS: SULFAMETHOXAZOLE/TRIMETHOPRIM 800MG/160MG D.S. TABLET PO SCH (10:07)
[2020-05-22] MEDS: PRENATAL VITAMINS W/ FOLIC ACID TABLET (FP) PO SCH (10:07)
[2020-05-22] MEDS: valACYclovir HCL 500 MG TABLET (FP) PO SCH ×2 (10:07→21:18)
[2020-05-22] MEDS: VENLAFAXINE HCL 37.5 MG E.R. CAPSULE PO SCH (10:07)
[2020-05-22] MEDS: NICOTINE POLACRILEX 4 MG GUM BUC PRN ×4 (10:09→21:19)
[2020-05-22] MEDS: MAGNESIUM HYDROX 2400MG/30ML ORAL SUSPENSION 30 ML CUP PO PRN (15:00)
[2020-05-22] MEDS: MIRTAZAPINE 15 MG TABLET (FP) PO SCH (21:18)
[2020-05-22] MEDS: MELATONIN 5 MG TABLETS PO PRN (21:18)
[2020-05-22] MEDS: THIAMINE HCL 100 MG TABLET (FP) PO SCH (21:18)
[2020-05-23] MEDS: BICTEGRAV/EMTRICIT/TENOFOV (BIKTARVY) 50-200-25 MG TABLET PO SCH (08:32)
[2020-05-23] MEDS: valACYclovir HCL 500 MG TABLET (FP) PO SCH ×2 (09:33→21:09)
[2020-05-23] MEDS: NICOTINE 21 MG/24 HOURS TOPICAL PATCH TD SCH (09:33)
[2020-05-23] MEDS: SULFAMETHOXAZOLE/TRIMETHOPRIM 800MG/160MG D.S. TABLET PO SCH (09:33)
[2020-05-23] MEDS: VENLAFAXINE HCL 37.5 MG E.R. CAPSULE PO SCH (09:33)
[2020-05-23] MEDS: PRENATAL VITAMINS W/ FOLIC ACID TABLET (FP) PO SCH (09:33)
[2020-05-23] MEDS: hydrOXYzine PAMOATE 50 MG CAPSULE (FP) PO SCH ×2 (09:33→21:09)
[2020-05-23] MEDS: NICOTINE POLACRILEX 4 MG GUM BUC PRN ×3 (09:35→21:09)
[2020-05-23] MEDS: THIAMINE HCL 100 MG TABLET (FP) PO SCH (21:06)
[2020-05-23] MEDS: MELATONIN 5 MG TABLETS PO PRN (21:08)
[2020-05-23] MEDS: MIRTAZAPINE 15 MG TABLET (FP) PO SCH (21:09)
[2020-05-24] MEDS: BICTEGRAV/EMTRICIT/TENOFOV (BIKTARVY) 50-200-25 MG TABLET PO SCH (08:40)
[2020-05-24] MEDS: NICOTINE 21 MG/24 HOURS TOPICAL PATCH TD SCH (09:39)
[2020-05-24] MEDS: PRENATAL VITAMINS W/ FOLIC ACID TABLET (FP) PO SCH (09:39)
[2020-05-24] MEDS: VENLAFAXINE HCL 37.5 MG E.R. CAPSULE PO SCH (09:39)
[2020-05-24] MEDS: valACYclovir HCL 500 MG TABLET (FP) PO SCH ×2 (09:40→21:19)
[2020-05-24] MEDS: NICOTINE POLACRILEX 4 MG GUM BUC PRN ×4 (09:40→21:20)
[2020-05-24] MEDS: SULFAMETHOXAZOLE/TRIMETHOPRIM 800MG/160MG D.S. TABLET PO SCH (09:40)
[2020-05-24] MEDS: hydrOXYzine PAMOATE 50 MG CAPSULE (FP) PO SCH ×2 (09:40→21:19)
[2020-05-24 10:09] LABS: SARS-CoV-2 NAA Not Detected (Not Detected)
[2020-05-24] MEDS: MELATONIN 5 MG TABLETS PO PRN (21:18)
[2020-05-24] MEDS: THIAMINE HCL 100 MG TABLET (FP) PO SCH (21:19)
[2020-05-24] MEDS: MIRTAZAPINE 15 MG TABLET (FP) PO SCH (21:19)
[2020-05-25] MEDS: BICTEGRAV/EMTRICIT/TENOFOV (BIKTARVY) 50-200-25 MG TABLET PO SCH (08:51)
[2020-05-25] MEDS: valACYclovir HCL 500 MG TABLET (FP) PO SCH ×2 (09:51→21:12)
[2020-05-25] MEDS: hydrOXYzine PAMOATE 50 MG CAPSULE (FP) PO SCH ×2 (09:51→21:13)
[2020-05-25] MEDS: SULFAMETHOXAZOLE/TRIMETHOPRIM 800MG/160MG D.S. TABLET PO SCH (09:51)
[2020-05-25] MEDS: PRENATAL VITAMINS W/ FOLIC ACID TABLET (FP) PO SCH (09:51)
[2020-05-25] MEDS: VENLAFAXINE HCL 37.5 MG E.R. CAPSULE PO SCH (09:51)
[2020-05-25] MEDS: NICOTINE 21 MG/24 HOURS TOPICAL PATCH TD SCH (09:51)
[2020-05-25] MEDS: NICOTINE POLACRILEX 4 MG GUM BUC PRN ×2 (09:53→21:14)
[2020-05-25] MEDS: ALBUTEROL SO4 HFA INHALER IH PRN ×2 (09:53→21:14)
[2020-05-25] MEDS: THIAMINE HCL 100 MG TABLET (FP) PO SCH (21:13)
[2020-05-25] MEDS: MELATONIN 5 MG TABLETS PO PRN (21:13)
[2020-05-25] MEDS: MIRTAZAPINE 15 MG TABLET (FP) PO SCH (21:30)
[2020-05-26] MEDS: BICTEGRAV/EMTRICIT/TENOFOV (BIKTARVY) 50-200-25 MG TABLET PO SCH (08:42)
[2020-05-26] MEDS: SULFAMETHOXAZOLE/TRIMETHOPRIM 800MG/160MG D.S. TABLET PO SCH (09:41)
[2020-05-26] MEDS: VENLAFAXINE HCL 37.5 MG E.R. CAPSULE PO SCH (09:41)
[2020-05-26] MEDS: hydrOXYzine PAMOATE 50 MG CAPSULE (FP) PO SCH ×2 (09:41→21:12)
[2020-05-26] MEDS: NICOTINE 21 MG/24 HOURS TOPICAL PATCH TD SCH (09:41)
[2020-05-26] MEDS: valACYclovir HCL 500 MG TABLET (FP) PO SCH ×2 (09:41→21:12)
[2020-05-26] MEDS: NICOTINE POLACRILEX 4 MG GUM BUC PRN ×3 (09:43→21:13)
[2020-05-26] MEDS: ALBUTEROL SO4 HFA INHALER IH PRN (09:43)
[2020-05-26] MEDS: PRENATAL VITAMINS W/ FOLIC ACID TABLET (FP) PO SCH (10:02)
[2020-05-26] MEDS: MELATONIN 5 MG TABLETS PO PRN (21:12)
[2020-05-26] MEDS: THIAMINE HCL 100 MG TABLET (FP) PO SCH (21:12)
[2020-05-26] MEDS: MIRTAZAPINE 15 MG TABLET (FP) PO SCH (21:12)
[2020-05-27] MEDS: BICTEGRAV/EMTRICIT/TENOFOV (BIKTARVY) 50-200-25 MG TABLET PO SCH (08:48)
[2020-05-27] MEDS: SULFAMETHOXAZOLE/TRIMETHOPRIM 800MG/160MG D.S. TABLET PO SCH (09:48)
[2020-05-27] MEDS: valACYclovir HCL 500 MG TABLET (FP) PO SCH ×2 (09:48→21:15)
[2020-05-27] MEDS: VENLAFAXINE HCL 37.5 MG E.R. CAPSULE PO SCH (09:48)
[2020-05-27] MEDS: hydrOXYzine PAMOATE 50 MG CAPSULE (FP) PO SCH ×2 (09:48→21:15)
[2020-05-27] MEDS: PRENATAL VITAMINS W/ FOLIC ACID TABLET (FP) PO SCH (09:49)
[2020-05-27] MEDS: NICOTINE 21 MG/24 HOURS TOPICAL PATCH TD SCH (09:49)
[2020-05-27] MEDS: ALBUTEROL SO4 HFA INHALER IH PRN (09:50)
[2020-05-27] MEDS: NICOTINE POLACRILEX 4 MG GUM BUC PRN ×4 (09:51→21:17)
[2020-05-27] MEDS: MAGNESIUM HYDROX 2400MG/30ML ORAL SUSPENSION 30 ML CUP PO PRN (10:31)
[2020-05-27] MEDS: MIRTAZAPINE 15 MG TABLET (FP) PO SCH (21:16)
[2020-05-27] MEDS: MELATONIN 5 MG TABLETS PO PRN (21:16)
[2020-05-27] MEDS: THIAMINE HCL 100 MG TABLET (FP) PO SCH (21:16)
[2020-05-28] MEDS: valACYclovir HCL 500 MG TABLET (FP) PO SCH ×2 (09:48→21:16)
[2020-05-28] MEDS: NICOTINE 21 MG/24 HOURS TOPICAL PATCH TD SCH (09:48)
[2020-05-28] MEDS: PRENATAL VITAMINS W/ FOLIC ACID TABLET (FP) PO SCH (09:48)
[2020-05-28] MEDS: VENLAFAXINE HCL 37.5 MG E.R. CAPSULE PO SCH (09:48)
[2020-05-28] MEDS: SULFAMETHOXAZOLE/TRIMETHOPRIM 800MG/160MG D.S. TABLET PO SCH (09:48)
[2020-05-28] MEDS: hydrOXYzine PAMOATE 50 MG CAPSULE (FP) PO SCH ×2 (09:48→21:16)
[2020-05-28] MEDS: NICOTINE POLACRILEX 4 MG GUM BUC PRN ×2 (09:49→21:17)
[2020-05-28] MEDS: BICTEGRAV/EMTRICIT/TENOFOV (BIKTARVY) 50-200-25 MG TABLET PO SCH (09:49)
[2020-05-28] MEDS: ALBUTEROL SO4 HFA INHALER IH PRN (09:50)
[2020-05-28] MEDS: THIAMINE HCL 100 MG TABLET (FP) PO SCH (21:16)
[2020-05-28] MEDS: MIRTAZAPINE 15 MG TABLET (FP) PO SCH (21:16)
[2020-05-29] MEDS: BICTEGRAV/EMTRICIT/TENOFOV (BIKTARVY) 50-200-25 MG TABLET PO SCH (08:55)
[2020-05-29] MEDS: SULFAMETHOXAZOLE/TRIMETHOPRIM 800MG/160MG D.S. TABLET PO SCH (09:55)
[2020-05-29] MEDS: VENLAFAXINE HCL 37.5 MG E.R. CAPSULE PO SCH (09:55)
[2020-05-29] MEDS: valACYclovir HCL 500 MG TABLET (FP) PO SCH ×2 (09:55→21:12)
[2020-05-29] MEDS: NICOTINE 21 MG/24 HOURS TOPICAL PATCH TD SCH (09:55)
[2020-05-29] MEDS: hydrOXYzine PAMOATE 50 MG CAPSULE (FP) PO SCH ×2 (09:55→21:12)
[2020-05-29] MEDS: ALBUTEROL SO4 HFA INHALER IH PRN (09:56)
[2020-05-29] MEDS: NICOTINE POLACRILEX 4 MG GUM BUC PRN ×3 (09:57→21:13)
[2020-05-29] MEDS: PRENATAL VITAMINS W/ FOLIC ACID TABLET (FP) PO SCH (10:13)
[2020-05-29] MEDS: IBUPROFEN 400 MG TABLET (FP) PO PRN (16:40)
[2020-05-29] MEDS: THIAMINE HCL 100 MG TABLET (FP) PO SCH (21:12)
[2020-05-29] MEDS: MELATONIN 5 MG TABLETS PO PRN (21:12)
[2020-05-29] MEDS: MIRTAZAPINE 15 MG TABLET (FP) PO SCH (21:12)
[2020-05-30] MEDS: BICTEGRAV/EMTRICIT/TENOFOV (BIKTARVY) 50-200-25 MG TABLET PO SCH (08:45)
[2020-05-30] MEDS: valACYclovir HCL 500 MG TABLET (FP) PO SCH ×2 (09:45→21:25)
[2020-05-30] MEDS: hydrOXYzine PAMOATE 50 MG CAPSULE (FP) PO SCH ×2 (09:45→21:25)
[2020-05-30] MEDS: PRENATAL VITAMINS W/ FOLIC ACID TABLET (FP) PO SCH (09:45)
[2020-05-30] MEDS: VENLAFAXINE HCL 37.5 MG E.R. CAPSULE PO SCH (09:45)
[2020-05-30] MEDS: SULFAMETHOXAZOLE/TRIMETHOPRIM 800MG/160MG D.S. TABLET PO SCH (09:45)
[2020-05-30] MEDS: NICOTINE 21 MG/24 HOURS TOPICAL PATCH TD SCH (09:45)
[2020-05-30] MEDS: ALBUTEROL SO4 HFA INHALER IH PRN (09:46)
[2020-05-30] MEDS: NICOTINE POLACRILEX 4 MG GUM BUC PRN ×3 (09:47→21:25)
[2020-05-30] MEDS: MIRTAZAPINE 15 MG TABLET (FP) PO SCH (21:25)
[2020-05-30] MEDS: THIAMINE HCL 100 MG TABLET (FP) PO SCH (21:25)
[2020-05-31] MEDS: BICTEGRAV/EMTRICIT/TENOFOV (BIKTARVY) 50-200-25 MG TABLET PO SCH (08:42)
[2020-05-31] MEDS: PRENATAL VITAMINS W/ FOLIC ACID TABLET (FP) PO SCH (09:41)
[2020-05-31] MEDS: NICOTINE 21 MG/24 HOURS TOPICAL PATCH TD SCH (09:41)
[2020-05-31] MEDS: valACYclovir HCL 500 MG TABLET (FP) PO SCH ×2 (09:42→21:25)
[2020-05-31] MEDS: SULFAMETHOXAZOLE/TRIMETHOPRIM 800MG/160MG D.S. TABLET PO SCH (09:42)
[2020-05-31] MEDS: VENLAFAXINE HCL 37.5 MG E.R. CAPSULE PO SCH (09:42)
[2020-05-31] MEDS: hydrOXYzine PAMOATE 50 MG CAPSULE (FP) PO SCH ×2 (09:42→21:25)
[2020-05-31] MEDS: ALBUTEROL SO4 HFA INHALER IH PRN (09:43)
[2020-05-31] MEDS: NICOTINE POLACRILEX 4 MG GUM BUC PRN ×2 (09:44→19:39)
[2020-05-31] MEDS: THIAMINE HCL 100 MG TABLET (FP) PO SCH (21:25)
[2020-05-31] MEDS: MIRTAZAPINE 15 MG TABLET (FP) PO SCH (21:25)
[2020-06-01] MEDS: BICTEGRAV/EMTRICIT/TENOFOV (BIKTARVY) 50-200-25 MG TABLET PO SCH (08:01)
[2020-06-01] MEDS: SULFAMETHOXAZOLE/TRIMETHOPRIM 800MG/160MG D.S. TABLET PO SCH (09:51)
[2020-06-01] MEDS: hydrOXYzine PAMOATE 50 MG CAPSULE (FP) PO SCH ×2 (09:51→21:21)
[2020-06-01] MEDS: PRENATAL VITAMINS W/ FOLIC ACID TABLET (FP) PO SCH (09:51)
[2020-06-01] MEDS: VENLAFAXINE HCL 37.5 MG E.R. CAPSULE PO SCH (09:51)
[2020-06-01] MEDS: valACYclovir HCL 500 MG TABLET (FP) PO SCH ×2 (09:51→21:21)
[2020-06-01] MEDS: NICOTINE 21 MG/24 HOURS TOPICAL PATCH TD SCH (09:52)
[2020-06-01] MEDS: NICOTINE POLACRILEX 4 MG GUM BUC PRN ×3 (09:54→21:22)
[2020-06-01] MEDS: IBUPROFEN 400 MG TABLET (FP) PO PRN (19:39)
[2020-06-01] MEDS: MELATONIN 5 MG TABLETS PO PRN (21:21)
[2020-06-01] MEDS: THIAMINE HCL 100 MG TABLET (FP) PO SCH (21:21)
[2020-06-01] MEDS: MIRTAZAPINE 15 MG TABLET (FP) PO SCH (21:22)
[2020-06-02 06:41] VITALS: TEMP 97.9
[2020-06-02] MEDS: BICTEGRAV/EMTRICIT/TENOFOV (BIKTARVY) 50-200-25 MG TABLET PO SCH (07:07)
[2020-06-02] MEDS: NICOTINE 21 MG/24 HOURS TOPICAL PATCH TD SCH (09:31)
[2020-06-02] MEDS: valACYclovir HCL 500 MG TABLET (FP) PO SCH ×2 (09:31→21:13)
[2020-06-02] MEDS: VENLAFAXINE HCL 37.5 MG E.R. CAPSULE PO SCH (09:31)
[2020-06-02] MEDS: SULFAMETHOXAZOLE/TRIMETHOPRIM 800MG/160MG D.S. TABLET PO SCH (09:31)
[2020-06-02] MEDS: PRENATAL VITAMINS W/ FOLIC ACID TABLET (FP) PO SCH (09:31)
[2020-06-02] MEDS: hydrOXYzine PAMOATE 50 MG CAPSULE (FP) PO SCH ×2 (09:31→21:13)
[2020-06-02] MEDS: NICOTINE POLACRILEX 4 MG GUM BUC PRN ×4 (09:33→21:14)
[2020-06-02] MEDS: ALBUTEROL SO4 HFA INHALER IH PRN (09:33)
[2020-06-02] MEDS: IBUPROFEN 400 MG TABLET (FP) PO PRN (15:56)
[2020-06-02] MEDS: MELATONIN 5 MG TABLETS PO PRN (21:13)
[2020-06-02] MEDS: THIAMINE HCL 100 MG TABLET (FP) PO SCH (21:13)
[2020-06-02] MEDS: MIRTAZAPINE 15 MG TABLET (FP) PO SCH (21:13)
[2020-06-03] MEDS: BICTEGRAV/EMTRICIT/TENOFOV (BIKTARVY) 50-200-25 MG TABLET PO SCH (07:04)
[2020-06-03 07:14] VITALS: BP 106/70; PULSE 79
[2020-06-03] MEDS ORDERED: PT OWN MED DRAWER 7, Y5N ONE (08:43)
[2020-06-03] MEDS: hydrOXYzine PAMOATE 50 MG CAPSULE (FP) PO SCH ×2 (09:53→21:15)
[2020-06-03] MEDS: valACYclovir HCL 500 MG TABLET (FP) PO SCH ×2 (09:53→21:15)
[2020-06-03] MEDS: SULFAMETHOXAZOLE/TRIMETHOPRIM 800MG/160MG D.S. TABLET PO SCH (09:53)
[2020-06-03] MEDS: NICOTINE 21 MG/24 HOURS TOPICAL PATCH TD SCH (09:53)
[2020-06-03] MEDS: VENLAFAXINE HCL 37.5 MG E.R. CAPSULE PO SCH (09:53)
[2020-06-03] MEDS: PRENATAL VITAMINS W/ FOLIC ACID TABLET (FP) PO SCH (09:54)
[2020-06-03] MEDS: NICOTINE POLACRILEX 4 MG GUM BUC PRN ×3 (09:55→21:15)
[2020-06-03] MEDS: MELATONIN 5 MG TABLETS PO PRN (21:15)
[2020-06-03] MEDS: MIRTAZAPINE 15 MG TABLET (FP) PO SCH (21:15)
[2020-06-03] MEDS: THIAMINE HCL 100 MG TABLET (FP) PO SCH (21:15)
[2020-06-04] MEDS: BICTEGRAV/EMTRICIT/TENOFOV (BIKTARVY) 50-200-25 MG TABLET PO SCH (07:01)
[2020-06-04] MEDS: NICOTINE POLACRILEX 4 MG GUM BUC PRN (09:39)
[2020-06-04] MEDS: VENLAFAXINE HCL 37.5 MG E.R. CAPSULE PO SCH (09:39)
[2020-06-04] MEDS: hydrOXYzine PAMOATE 50 MG CAPSULE (FP) PO SCH (09:39)
[2020-06-04] MEDS: NICOTINE 21 MG/24 HOURS TOPICAL PATCH TD SCH (09:39)
[2020-06-04] MEDS: valACYclovir HCL 500 MG TABLET (FP) PO SCH (09:39)
[2020-06-04] MEDS: SULFAMETHOXAZOLE/TRIMETHOPRIM 800MG/160MG D.S. TABLET PO SCH (09:39)
[2020-06-04] MEDS: PRENATAL VITAMINS W/ FOLIC ACID TABLET (FP) PO SCH (09:39)
[2020-06-04] MEDS: ALBUTEROL SO4 HFA INHALER IH PRN (09:40)
== END 2020-06-04 09:47 | disposition home or self-care (01) | DRG 895 ==
LOC: YASAS 14:17 → Y3W 14:18
PROVIDERS: ADMIT Allergy & Immunology; ATTEND Allergy & Immunology
PROC: HZ42ZZZ Group Counseling for Substance Abuse Treatment, Cognitive-Behavioral (ICD-10-PCS; principal; 2020-05-20)
DX: F10.20 Alcohol dependence, uncomplicated (principal); F11.20 Opioid dependence, uncomplicated; F14.20 Cocaine dependence, uncomplicated; F33.1 Major depressive disorder, recurrent, moderate; F19.282 Other psychoactive substance dependence with psychoactive substance-induced sleep disorder; B20 Human immunodeficiency virus [HIV] disease; F17.210 Nicotine dependence, cigarettes, uncomplicated; D64.9 Anemia, unspecified; J45.20 Mild intermittent asthma, uncomplicated; Z62.810 Personal history of physical and sexual abuse in childhood
CPT/HCPCS: C9803; U0003; U0005

== ENCOUNTER 2020-08-21 19:28 | Inpatient (IN) | payer OTHER ==
[2020-08-21 22:52] VITALS: BMI 21.9
[2020-08-22] MEDS ORDERED: MAGNESIUM HYDROX 2400MG/30ML ORAL SUSPENSION 30 ML CUP PO PRN (03:47)
[2020-08-22] MEDS ORDERED: ACETAMINOPHEN 325 MG TABLET (FP) PO PRN (03:47)
[2020-08-22] MEDS ORDERED: LOPERAMIDE HCL 2 MG CAPSULE PO PRN (03:47)
[2020-08-22] MEDS ORDERED: MAG HYDROX/AL HYDROX/SIMETH 30 ML UNIT-DOSE CUP PO PRN (03:47)
[2020-08-22] MEDS ORDERED: P-EPHED 60MG/TRIPROLIDI 2.5MG TABLET PO PRN (03:47)
[2020-08-22] MEDS ORDERED: MAGNESIUM CITRATE 300 ML BOTTLE PO PRN (03:47)
[2020-08-22] MEDS ORDERED: guaiFENesin 200 MG/10 ML 10 ML UNIT-DOSE CUPS PO PRN (03:47)
[2020-08-22 10:04] LABS: HEMATOCRIT 34.7 % (35.4-49); HEMOGLOBIN 11.7 GM/dL (11.7-16.9); MCH 29.6 pg (25.7-33.7); MCHC 33.9 g/dl (32.0-35.9); MEAN CELL VOLUME 87.2 fl (80-96); MEAN PLT VOLUME 10.2 fl (7.5-11.1); PLATELET COUNT 98 10^3/uL (134-434); RBC 3.97 M/mm3 (4.00-5.60); RDW 13.8 % (11.9-15.9); WHITE BLOOD COUNT 2.1 K/mm3 (4.0-10.0)
[2020-08-22 10:08] LABS: CALCIUM 8.6 mg/dL (8.5-10.1)
[2020-08-22 10:09] LABS: BLOOD UREA NITROGEN 13.3 mg/dL (7-18)
[2020-08-22 10:12] LABS: CREATININE 0.9 mg/dL (0.55-1.3)
[2020-08-22 10:13] LABS: BILIRUBIN,TOTAL 0.9 mg/dL (0.2-1)
[2020-08-22 10:14] LABS: TOT PROT 7.9 g/dl (6.4-8.2)
[2020-08-22] MEDS: PRENATAL VITAMINS W/ FOLIC ACID TABLET (FP) PO SCH (11:21)
[2020-08-22] MEDS: NICOTINE 21 MG/24 HOURS TOPICAL PATCH TD SCH (11:21)
[2020-08-22] MEDS: NICOTINE POLACRILEX 2 MG GUM BUC PRN ×2 (12:17→22:10)
[2020-08-22 13:11] LABS: URINE APPEARANCE Clear; URINE BILIRUBIN Negative (NEGATIVE); URINE COLOR Yellow; URINE GLUCOSE (UA) Negative (NEGATIVE); URINE KETONE Negative (NEGATIVE); URINE LEUK ESTERASE 1+ (NEGATIVE); URINE NITRITE Negative (NEGATIVE); URINE PROTEIN 1+ (NEGATIVE); URINE UROBILINOGEN 0.2 mg/dL (0.2-1.0)
[2020-08-22 13:31] LABS: URINE RBC 0-3 /uL (0-23.9)
[2020-08-22] MEDS: MIRTAZAPINE 15 MG TABLET (FP) PO SCH (22:08)
[2020-08-22] MEDS: THIAMINE HCL 100 MG TABLET (FP) PO SCH (22:09)
[2020-08-23] MEDS: PRENATAL VITAMINS W/ FOLIC ACID TABLET (FP) PO SCH (11:10)
[2020-08-23] MEDS: NICOTINE 21 MG/24 HOURS TOPICAL PATCH TD SCH (11:10)
[2020-08-23] MEDS: ALBUTEROL SO4 HFA INHALER IH PRN ×2 (11:10→21:32)
[2020-08-23] MEDS: NICOTINE POLACRILEX 2 MG GUM BUC PRN ×2 (11:10→15:10)
[2020-08-23] MEDS: SULFAMETHOXAZOLE/TRIMETHOPRIM 800MG/160MG D.S. TABLET PO SCH (11:10)
[2020-08-23] MEDS: BICTEGRAV/EMTRICIT/TENOFOV (BIKTARVY) 50-200-25 MG TABLET PO SCH (15:10)
[2020-08-23] MEDS: VENLAFAXINE HCL 37.5 MG E.R. CAPSULE PO SCH (15:47)
[2020-08-23] MEDS: MIRTAZAPINE 15 MG TABLET (FP) PO SCH (21:32)
[2020-08-23] MEDS: THIAMINE HCL 100 MG TABLET (FP) PO SCH (21:32)
[2020-08-24] MEDS: PRENATAL VITAMINS W/ FOLIC ACID TABLET (FP) PO SCH (10:18)
[2020-08-24] MEDS: VENLAFAXINE HCL 37.5 MG E.R. CAPSULE PO SCH (10:18)
[2020-08-24] MEDS: SULFAMETHOXAZOLE/TRIMETHOPRIM 800MG/160MG D.S. TABLET PO SCH (10:18)
[2020-08-24] MEDS: BICTEGRAV/EMTRICIT/TENOFOV (BIKTARVY) 50-200-25 MG TABLET PO SCH (10:19)
[2020-08-24] MEDS: NICOTINE 21 MG/24 HOURS TOPICAL PATCH TD SCH (10:21)
[2020-08-24] MEDS: NICOTINE POLACRILEX 2 MG GUM BUC PRN ×3 (10:21→21:55)
[2020-08-24] MEDS: ALBUTEROL SO4 HFA INHALER IH PRN (10:22)
[2020-08-24] MEDS ORDERED: POTASSIUM CHLORIDE TABS 20 MEQ TABLET.ER (FP) PO ONE (15:01)
[2020-08-24] MEDS: MIRTAZAPINE 15 MG TABLET (FP) PO SCH (21:52)
[2020-08-24] MEDS: MELATONIN 5 MG TABLETS PO SCH (21:52)
[2020-08-24] MEDS: THIAMINE HCL 100 MG TABLET (FP) PO SCH (21:52)
[2020-08-24] MEDS: POTASSIUM CHLORIDE TABS 20 MEQ TABLET.ER (FP) PO SCH (21:55)
[2020-08-25] MEDS: VENLAFAXINE HCL 37.5 MG E.R. CAPSULE PO SCH (10:03)
[2020-08-25] MEDS: NICOTINE 21 MG/24 HOURS TOPICAL PATCH TD SCH (10:03)
[2020-08-25] MEDS: POTASSIUM CHLORIDE TABS 20 MEQ TABLET.ER (FP) PO SCH ×2 (10:03→22:37)
[2020-08-25] MEDS: SULFAMETHOXAZOLE/TRIMETHOPRIM 800MG/160MG D.S. TABLET PO SCH (10:03)
[2020-08-25] MEDS: PRENATAL VITAMINS W/ FOLIC ACID TABLET (FP) PO SCH (10:03)
[2020-08-25] MEDS: NICOTINE POLACRILEX 2 MG GUM BUC PRN ×2 (10:05→22:38)
[2020-08-25] MEDS: BICTEGRAV/EMTRICIT/TENOFOV (BIKTARVY) 50-200-25 MG TABLET PO SCH (10:41)
[2020-08-25 14:07] LABS: EPI CELLS 13 /uL (0-25.1); HYALINE CASTS 1 /uL (0-3.1); URINE APPEARANCE CLEAR; URINE BACTERIA 9 /uL (0-1359); URINE BILIRUBIN NEGATIVE (NEGATIVE); URINE COLOR YELLOW; URINE GLUCOSE (UA) NEGATIVE (NEGATIVE); URINE KETONE NEGATIVE (NEGATIVE); URINE LEUK ESTERASE 2+ (NEGATIVE); URINE NITRITE NEGATIVE (NEGATIVE); URINE PROTEIN NEGATIVE (NEGATIVE); URINE RBC 3 /uL (0-23.9); URINE WBC 86 /uL (0-25.8)
[2020-08-25 14:17] LABS: CALCIUM 8.7 mg/dL (8.5-10.1)
[2020-08-25 14:18] LABS: ALBUMIN 3.7 g/dl (3.4-5.0); BLOOD UREA NITROGEN 8.2 mg/dL (7-18)
[2020-08-25 14:23] LABS: TOT PROT 7.6 g/dl (6.4-8.2)
[2020-08-25 14:25] LABS: BILIRUBIN,TOTAL 0.8 mg/dL (0.2-1)
[2020-08-25 14:38] LABS: CREATININE 0.7 mg/dL (0.55-1.3)
[2020-08-25] MEDS: MIRTAZAPINE 15 MG TABLET (FP) PO SCH (22:37)
[2020-08-25] MEDS: THIAMINE HCL 100 MG TABLET (FP) PO SCH (22:37)
[2020-08-26] MEDS ORDERED: PT OWN MED DRAWER 7, Y5N ONE (08:44)
[2020-08-26] MEDS: PRENATAL VITAMINS W/ FOLIC ACID TABLET (FP) PO SCH (09:57)
[2020-08-26] MEDS: POTASSIUM CHLORIDE TABS 20 MEQ TABLET.ER (FP) PO SCH (09:58)
[2020-08-26] MEDS: SULFAMETHOXAZOLE/TRIMETHOPRIM 800MG/160MG D.S. TABLET PO SCH (09:58)
[2020-08-26] MEDS: VENLAFAXINE HCL 37.5 MG E.R. CAPSULE PO SCH (09:58)
[2020-08-26] MEDS: NICOTINE 21 MG/24 HOURS TOPICAL PATCH TD SCH (09:59)
[2020-08-26] MEDS: BICTEGRAV/EMTRICIT/TENOFOV (BIKTARVY) 50-200-25 MG TABLET PO SCH (09:59)
[2020-08-26] MEDS: valACYclovir HCL 500 MG TABLET (FP) PO SCH ×2 (10:01→21:19)
[2020-08-26] MEDS: NICOTINE POLACRILEX 2 MG GUM BUC PRN ×3 (10:02→18:02)
[2020-08-26] MEDS: THIAMINE HCL 100 MG TABLET (FP) PO SCH (21:19)
[2020-08-26] MEDS: MIRTAZAPINE 15 MG TABLET (FP) PO SCH (21:19)
[2020-08-27] MEDS ORDERED: PT OWN MED DRAWER 7, Y5N ONE (08:26)
[2020-08-27] MEDS: SULFAMETHOXAZOLE/TRIMETHOPRIM 800MG/160MG D.S. TABLET PO SCH (09:57)
[2020-08-27] MEDS: PRENATAL VITAMINS W/ FOLIC ACID TABLET (FP) PO SCH (09:57)
[2020-08-27] MEDS: valACYclovir HCL 500 MG TABLET (FP) PO SCH ×2 (09:58→21:10)
[2020-08-27] MEDS: BICTEGRAV/EMTRICIT/TENOFOV (BIKTARVY) 50-200-25 MG TABLET PO SCH (09:58)
[2020-08-27] MEDS: VENLAFAXINE HCL 37.5 MG E.R. CAPSULE PO SCH (09:58)
[2020-08-27] MEDS: NICOTINE 21 MG/24 HOURS TOPICAL PATCH TD SCH (09:59)
[2020-08-27] MEDS: NICOTINE POLACRILEX 2 MG GUM BUC PRN ×2 (10:00→21:12)
[2020-08-27] MEDS: MIRTAZAPINE 15 MG TABLET (FP) PO SCH (21:10)
[2020-08-27] MEDS: THIAMINE HCL 100 MG TABLET (FP) PO SCH (21:10)
[2020-08-28] MEDS ORDERED: PT OWN MED DRAWER 7, Y5N ONE (08:47)
[2020-08-28] MEDS: PRENATAL VITAMINS W/ FOLIC ACID TABLET (FP) PO SCH (09:49)
[2020-08-28] MEDS: SULFAMETHOXAZOLE/TRIMETHOPRIM 800MG/160MG D.S. TABLET PO SCH (09:49)
[2020-08-28] MEDS: VENLAFAXINE HCL 37.5 MG E.R. CAPSULE PO SCH (09:49)
[2020-08-28] MEDS: valACYclovir HCL 500 MG TABLET (FP) PO SCH ×2 (09:49→21:16)
[2020-08-28] MEDS: NICOTINE POLACRILEX 2 MG GUM BUC PRN ×2 (09:50→21:17)
[2020-08-28] MEDS: BICTEGRAV/EMTRICIT/TENOFOV (BIKTARVY) 50-200-25 MG TABLET PO SCH (09:50)
[2020-08-28] MEDS: NICOTINE 21 MG/24 HOURS TOPICAL PATCH TD SCH (09:50)
[2020-08-28] MEDS: MIRTAZAPINE 15 MG TABLET (FP) PO SCH (21:16)
[2020-08-28] MEDS: THIAMINE HCL 100 MG TABLET (FP) PO SCH (21:16)
[2020-08-29] MEDS: PRENATAL VITAMINS W/ FOLIC ACID TABLET (FP) PO SCH (09:40)
[2020-08-29] MEDS: BICTEGRAV/EMTRICIT/TENOFOV (BIKTARVY) 50-200-25 MG TABLET PO SCH (09:41)
[2020-08-29] MEDS: NICOTINE 21 MG/24 HOURS TOPICAL PATCH TD SCH (09:41)
[2020-08-29] MEDS: SULFAMETHOXAZOLE/TRIMETHOPRIM 800MG/160MG D.S. TABLET PO SCH (09:41)
[2020-08-29] MEDS: NICOTINE POLACRILEX 2 MG GUM BUC PRN (09:41)
[2020-08-29] MEDS: VENLAFAXINE HCL 37.5 MG E.R. CAPSULE PO SCH (09:41)
[2020-08-29] MEDS: valACYclovir HCL 500 MG TABLET (FP) PO SCH ×2 (09:41→22:16)
[2020-08-29] MEDS: MIRTAZAPINE 15 MG TABLET (FP) PO SCH (22:16)
[2020-08-29] MEDS: THIAMINE HCL 100 MG TABLET (FP) PO SCH (22:16)
[2020-08-30] MEDS: PRENATAL VITAMINS W/ FOLIC ACID TABLET (FP) PO SCH (09:37)
[2020-08-30] MEDS: NICOTINE 21 MG/24 HOURS TOPICAL PATCH TD SCH (09:37)
[2020-08-30] MEDS: valACYclovir HCL 500 MG TABLET (FP) PO SCH ×2 (09:37→21:12)
[2020-08-30] MEDS: SULFAMETHOXAZOLE/TRIMETHOPRIM 800MG/160MG D.S. TABLET PO SCH (09:37)
[2020-08-30] MEDS: VENLAFAXINE HCL 37.5 MG E.R. CAPSULE PO SCH (09:37)
[2020-08-30] MEDS: BICTEGRAV/EMTRICIT/TENOFOV (BIKTARVY) 50-200-25 MG TABLET PO SCH (09:37)
[2020-08-30] MEDS: NICOTINE POLACRILEX 2 MG GUM BUC PRN ×2 (09:39→21:13)
[2020-08-30] MEDS: IBUPROFEN 400 MG TABLET (FP) PO PRN (12:03)
[2020-08-30] MEDS: ALBUTEROL SO4 HFA INHALER IH PRN (21:11)
[2020-08-30] MEDS: MELATONIN 5 MG TABLETS PO SCH (21:12)
[2020-08-30] MEDS: THIAMINE HCL 100 MG TABLET (FP) PO SCH (21:12)
[2020-08-30] MEDS: MIRTAZAPINE 15 MG TABLET (FP) PO SCH (21:12)
[2020-08-31] MEDS: SULFAMETHOXAZOLE/TRIMETHOPRIM 800MG/160MG D.S. TABLET PO SCH (09:43)
[2020-08-31] MEDS: PRENATAL VITAMINS W/ FOLIC ACID TABLET (FP) PO SCH (09:43)
[2020-08-31] MEDS: BICTEGRAV/EMTRICIT/TENOFOV (BIKTARVY) 50-200-25 MG TABLET PO SCH (09:44)
[2020-08-31] MEDS: ALBUTEROL SO4 HFA INHALER IH PRN (09:44)
[2020-08-31] MEDS: NICOTINE 21 MG/24 HOURS TOPICAL PATCH TD SCH (09:45)
[2020-08-31] MEDS: VENLAFAXINE HCL 37.5 MG E.R. CAPSULE PO SCH (09:46)
[2020-08-31] MEDS: NICOTINE POLACRILEX 2 MG GUM BUC PRN ×2 (09:47→21:26)
[2020-08-31] MEDS: valACYclovir HCL 500 MG TABLET (FP) PO SCH ×2 (10:59→21:25)
[2020-08-31] MEDS: IBUPROFEN 400 MG TABLET (FP) PO PRN (11:04)
[2020-08-31] MEDS: MIRTAZAPINE 15 MG TABLET (FP) PO SCH (21:25)
[2020-08-31] MEDS: THIAMINE HCL 100 MG TABLET (FP) PO SCH (21:25)
[2020-09-01] MEDS ORDERED: PT OWN MED DRAWER 7, Y5N ONE (08:13)
[2020-09-01] MEDS: PRENATAL VITAMINS W/ FOLIC ACID TABLET (FP) PO SCH (09:40)
[2020-09-01] MEDS: BICTEGRAV/EMTRICIT/TENOFOV (BIKTARVY) 50-200-25 MG TABLET PO SCH (09:41)
[2020-09-01] MEDS: SULFAMETHOXAZOLE/TRIMETHOPRIM 800MG/160MG D.S. TABLET PO SCH (09:41)
[2020-09-01] MEDS: valACYclovir HCL 500 MG TABLET (FP) PO SCH ×2 (09:41→21:04)
[2020-09-01] MEDS: VENLAFAXINE HCL 37.5 MG E.R. CAPSULE PO SCH (09:41)
[2020-09-01] MEDS: NICOTINE 21 MG/24 HOURS TOPICAL PATCH TD SCH (09:42)
[2020-09-01] MEDS: NICOTINE POLACRILEX 2 MG GUM BUC PRN (09:43)
[2020-09-01] MEDS: IBUPROFEN 400 MG TABLET (FP) PO PRN (11:01)
[2020-09-01] MEDS: MIRTAZAPINE 15 MG TABLET (FP) PO SCH (21:03)
[2020-09-01] MEDS: THIAMINE HCL 100 MG TABLET (FP) PO SCH (21:04)
[2020-09-02 07:11] VITALS: BP 110/75; PULSE 77; TEMP 97.2
[2020-09-02] MEDS: VENLAFAXINE HCL 37.5 MG E.R. CAPSULE PO SCH (09:44)
[2020-09-02] MEDS: valACYclovir HCL 500 MG TABLET (FP) PO SCH (09:44)
[2020-09-02] MEDS: SULFAMETHOXAZOLE/TRIMETHOPRIM 800MG/160MG D.S. TABLET PO SCH (09:44)
[2020-09-02] MEDS: PRENATAL VITAMINS W/ FOLIC ACID TABLET (FP) PO SCH (09:44)
[2020-09-02] MEDS: BICTEGRAV/EMTRICIT/TENOFOV (BIKTARVY) 50-200-25 MG TABLET PO SCH (09:46)
[2020-09-02] MEDS: NICOTINE 21 MG/24 HOURS TOPICAL PATCH TD SCH (09:46)
== END 2020-09-02 10:40 | disposition home or self-care (01) | DRG 895 ==
LOC: YASAS 19:28 → Y5N 08-22 03:29 → Y3E 08-22 08:48 → Y5N 08-22 08:49
PROVIDERS: ADMIT Allergy & Immunology; ATTEND Allergy & Immunology
PROC: HZ42ZZZ Group Counseling for Substance Abuse Treatment, Cognitive-Behavioral (ICD-10-PCS; principal; 2020-08-22)
DX: F10.20 Alcohol dependence, uncomplicated (principal); F14.20 Cocaine dependence, uncomplicated; F16.20 Hallucinogen dependence, uncomplicated; F33.1 Major depressive disorder, recurrent, moderate; F19.280 Other psychoactive substance dependence with psychoactive substance-induced anxiety disorder; F19.282 Other psychoactive substance dependence with psychoactive substance-induced sleep disorder; F33.8 Other recurrent depressive disorders; B20 Human immunodeficiency virus [HIV] disease; F11.10 Opioid abuse, uncomplicated; F12.20 Cannabis dependence, uncomplicated; F17.210 Nicotine dependence, cigarettes, uncomplicated; J45.20 Mild intermittent asthma, uncomplicated; G58.8 Other specified mononeuropathies
CPT/HCPCS: 36415; 80053; 81003; 85027; 86780; C9803; U0003; U0005

== ENCOUNTER 2020-12-24 10:36 | Inpatient (IN) | payer OTHER ==
[2020-12-24] MEDS ORDERED: MAGNESIUM HYDROX 2400MG/30ML ORAL SUSPENSION 30 ML CUP PO PRN (11:24)
[2020-12-24] MEDS ORDERED: diazePAM 5 MG TABLET PO PRN (11:24)
[2020-12-24] MEDS ORDERED: BISMUTH SUBSALICYLATE 524 MG/30 ML PO PRN (11:24)
[2020-12-24] MEDS ORDERED: NICOTINE 10 MG CARTRIDGE (INHALER) IH PRN (11:24)
[2020-12-24] MEDS ORDERED: IBUPROFEN 400 MG TABLET (FP) PO PRN (11:24)
[2020-12-24] MEDS ORDERED: MAGNESIUM CITRATE 300 ML BOTTLE PO PRN (11:24)
[2020-12-24] MEDS ORDERED: ONDANSETRON *ODT* 4 MG TABLET SL PRN (11:24)
[2020-12-24] MEDS ORDERED: MAG HYDROX/AL HYDROX/SIMETH 30 ML UNIT-DOSE CUP PO PRN (11:24)
[2020-12-24] MEDS ORDERED: MENTHOL/PHENOL 1 EACH UD MM PRN (11:24)
[2020-12-24] MEDS ORDERED: ACETAMINOPHEN 325 MG TABLET (FP) PO PRN (11:24)
[2020-12-24 11:34] VITALS: BMI 17.6
[2020-12-24] MEDS ORDERED: ALBUTEROL SO4 HFA INHALER IH PRN (13:06)
[2020-12-24 17:37] LABS: ALBUMIN 3.2 g/dl (3.4-5.0); BLOOD UREA NITROGEN 11.6 mg/dL (7-18); CALCIUM 8.3 mg/dL (8.5-10.1)
[2020-12-24 17:39] LABS: HEMATOCRIT 28.7 % (35.4-49); HEMOGLOBIN 10.1 GM/dL (11.7-16.9); MCH 29.3 pg (25.7-33.7); MCHC 35.3 g/dl (32.0-35.9); MEAN PLT VOLUME 9.5 fl (7.5-11.1); PLATELET COUNT 88 10^3/uL (134-434); RBC 3.45 M/mm3 (4.00-5.60); RDW 13.2 % (11.9-15.9); WHITE BLOOD COUNT 2.4 K/mm3 (4.0-10.0)
[2020-12-24 17:41] LABS: BILIRUBIN,TOTAL 0.6 mg/dL (0.2-1); TOT PROT 8.3 g/dl (6.4-8.2)
[2020-12-24] MEDS: hydrOXYzine PAMOATE 25 MG CAPSULE (FP) PO SCH ×3 (17:54→23:05)
[2020-12-24] MEDS: diazePAM 5 MG TABLET PO SCH ×2 (17:54→23:03)
[2020-12-24] MEDS: NICOTINE 7 MG/24 HOURS TOPICAL PATCH TD SCH (18:32)
[2020-12-24] MEDS: PRENATAL VITAMINS W/ FOLIC ACID TABLET (FP) PO SCH (18:33)
[2020-12-24] MEDS: ACETAMINOPHEN 325 MG TABLET (FP) PO PRN (21:47)
[2020-12-24] MEDS: BUDESONIDE/FORMETEROL FUMARATE 80/4.5 mcg INHALER IH SCH (23:02)
[2020-12-24] MEDS: valACYclovir HCL 500 MG TABLET (FP) PO SCH (23:03)
[2020-12-24] MEDS: THIAMINE HCL 100 MG TABLET (FP) PO SCH (23:03)
[2020-12-24] MEDS: MELATONIN 5 MG TABLETS PO SCH (23:05)
[2020-12-25] MEDS: diazePAM 5 MG TABLET PO SCH ×4 (07:07→22:29)
[2020-12-25] MEDS: hydrOXYzine PAMOATE 25 MG CAPSULE (FP) PO SCH ×5 (07:07→22:29)
[2020-12-25] MEDS: BICTEGRAV/EMTRICIT/TENOFOV (BIKTARVY) 50-200-25 MG TABLET PO SCH (08:30)
[2020-12-25] MEDS: valACYclovir HCL 500 MG TABLET (FP) PO SCH ×2 (11:16→22:29)
[2020-12-25] MEDS: PRENATAL VITAMINS W/ FOLIC ACID TABLET (FP) PO SCH (11:16)
[2020-12-25] MEDS: METHOCARBAMOL 500 MG TABLET PO PRN ×2 (11:16→16:57)
[2020-12-25] MEDS: SULFAMETHOXAZOLE/TRIMETHOPRIM 800MG/160MG D.S. TABLET PO SCH (11:17)
[2020-12-25] MEDS: NICOTINE 7 MG/24 HOURS TOPICAL PATCH TD SCH (11:26)
[2020-12-25] MEDS: BUDESONIDE/FORMETEROL FUMARATE 80/4.5 mcg INHALER IH SCH ×2 (11:54→22:28)
[2020-12-25] MEDS ORDERED: FLU VACC QS2021-22(6MOS UP)/PF 60 MCG/0.5 ML SYRINGE IM ONE (12:00)
[2020-12-25] MEDS: ACETAMINOPHEN 325 MG TABLET (FP) PO PRN (18:40)
[2020-12-25] MEDS: THIAMINE HCL 100 MG TABLET (FP) PO SCH (22:28)
[2020-12-25] MEDS: MELATONIN 5 MG TABLETS PO SCH (22:28)
[2020-12-26] MEDS: diazePAM 5 MG TABLET PO SCH ×3 (07:12→22:55)
[2020-12-26] MEDS: hydrOXYzine PAMOATE 25 MG CAPSULE (FP) PO SCH ×5 (07:12→22:55)
[2020-12-26] MEDS: BICTEGRAV/EMTRICIT/TENOFOV (BIKTARVY) 50-200-25 MG TABLET PO SCH (07:13)
[2020-12-26] MEDS: BUDESONIDE/FORMETEROL FUMARATE 80/4.5 mcg INHALER IH SCH ×2 (11:16→22:54)
[2020-12-26] MEDS: valACYclovir HCL 500 MG TABLET (FP) PO SCH ×2 (11:17→22:55)
[2020-12-26] MEDS: METHOCARBAMOL 500 MG TABLET PO PRN (11:17)
[2020-12-26] MEDS: SULFAMETHOXAZOLE/TRIMETHOPRIM 800MG/160MG D.S. TABLET PO SCH (11:17)
[2020-12-26] MEDS: PRENATAL VITAMINS W/ FOLIC ACID TABLET (FP) PO SCH (11:18)
[2020-12-26] MEDS: NICOTINE 7 MG/24 HOURS TOPICAL PATCH TD SCH (11:19)
[2020-12-26] MEDS: THIAMINE HCL 100 MG TABLET (FP) PO SCH (22:55)
[2020-12-26] MEDS: MELATONIN 5 MG TABLETS PO SCH (22:55)
[2020-12-27] MEDS: hydrOXYzine PAMOATE 25 MG CAPSULE (FP) PO SCH ×5 (07:00→21:53)
[2020-12-27] MEDS: diazePAM 5 MG TABLET PO SCH ×2 (07:00→17:51)
[2020-12-27] MEDS: BICTEGRAV/EMTRICIT/TENOFOV (BIKTARVY) 50-200-25 MG TABLET PO SCH (07:22)
[2020-12-27] MEDS: SULFAMETHOXAZOLE/TRIMETHOPRIM 800MG/160MG D.S. TABLET PO SCH (10:58)
[2020-12-27] MEDS: NICOTINE 7 MG/24 HOURS TOPICAL PATCH TD SCH (10:58)
[2020-12-27] MEDS: PRENATAL VITAMINS W/ FOLIC ACID TABLET (FP) PO SCH (10:58)
[2020-12-27] MEDS: BUDESONIDE/FORMETEROL FUMARATE 80/4.5 mcg INHALER IH SCH ×2 (10:59→21:54)
[2020-12-27] MEDS: valACYclovir HCL 500 MG TABLET (FP) PO SCH ×2 (11:08→21:53)
[2020-12-27] MEDS: METHOCARBAMOL 500 MG TABLET PO PRN ×2 (11:31→21:53)
[2020-12-27] MEDS: THIAMINE HCL 100 MG TABLET (FP) PO SCH (21:53)
[2020-12-27] MEDS: MELATONIN 5 MG TABLETS PO SCH (21:54)
[2020-12-28] MEDS: diazePAM 5 MG TABLET PO ONE ×2 (06:09→06:30)
[2020-12-28] MEDS: hydrOXYzine PAMOATE 25 MG CAPSULE (FP) PO SCH ×2 (06:09→06:30)
[2020-12-28] MEDS: BICTEGRAV/EMTRICIT/TENOFOV (BIKTARVY) 50-200-25 MG TABLET PO SCH (07:04)
[2020-12-28 09:38] VITALS: BP 105/72; PULSE 86; TEMP 98.4
== END 2020-12-28 09:32 | disposition home or self-care (01) | DRG 896 ==
LOC: YASAS 10:36 → Y3N 11:42 → Y6N 12-25 01:40
PROVIDERS: ADMIT Allergy & Immunology; ATTEND Allergy & Immunology
PROC: HZ2ZZZZ Detoxification Services for Substance Abuse Treatment (ICD-10-PCS; principal; 2020-12-24)
DX: F10.230 Alcohol dependence with withdrawal, uncomplicated (principal); U07.1 COVID-19; F14.20 Cocaine dependence, uncomplicated; B20 Human immunodeficiency virus [HIV] disease; D61.818 Other pancytopenia; Z68.1 Body mass index [BMI] 19.9 or less, adult; F12.20 Cannabis dependence, uncomplicated; F17.210 Nicotine dependence, cigarettes, uncomplicated; F41.8 Other specified anxiety disorders; F32.A Depression, unspecified; D72.819 Decreased white blood cell count, unspecified; G62.9 Polyneuropathy, unspecified; J45.909 Unspecified asthma, uncomplicated; R74.01 Elevation of levels of liver transaminase levels; R63.4 Abnormal weight loss; Z87.438 Personal history of other diseases of male genital organs
CPT/HCPCS: 36415; 80053; 84450; 85027; 86780; 90686; C9803; U0003; U0005